=== PATIENT | female | born 1950 | race Caucasian/White ===

== ENCOUNTER 2016-07-30 08:53 | Inpatient (IN) | payer OTHER, MEDICARE ==
[~2016-07-30] VITALS: Ht 167.6 cm; Wt 67.1 kg
--- NOTE | 2016-07-30 08:59 | ED DYSPNEA/ASTHMA COMPLAINT ---
History of Present Illness General Chief Complaint: Dyspnea (COPD, CHF, Other) Stated Complaint: BIBA SOB Source: patient, EMS Exam Limitations: clinical condition Vital Signs & Intake/Output Vital Signs & Intake/Output Vital Signs Date Time Temp Pulse Resp B/P B/P Pulse O2 O2 Flow FiO2 Mean Ox Delivery Rate 07/31 2147 97.7 81 19 110/60 93 07/30 1649 96 Nasal 3.0L Cannula 07/30 1600 Nasal 3.0L Cannula 07/30 1449 97.9 91 20 132/74 92 Nasal 3.0L Cannula 07/30 1412 Nasal 3.0L Cannula 07/30 1412 96 Nasal 3.0L Cannula 07/30 1343 92 Nasal 3.0L Cannula 07/30 1256 97.9 91 20 132/74 92 Nasal 3.0L Cannula 07/30 1232 98.3 107 16 125/60 94 Nasal 3.0L Cannula 07/30 1108 98.7 87 16 109/55 96 Nasal 3.0L Cannula 07/30 1025 95 Nasal 3.0L Cannula 07/30 0920 97 Nasal 3.0L Cannula 07/30 0906 96.5 105 28 143/67 94 Room Air Allergies Coded Allergies: No Known Allergies (07/30/16) Reconcile Medications Albuterol Sulfate (Proair Hfa) 90 MCG HFA.AER.AD 90 MCG INH 4 TIMES/DAY COPD (Reported) Alprazolam 0.25 MG TABLET 0.25 MG PO TID ANXIETY (Reported) Budesonide/Formoterol Fumarate (Symbicort 160-4.5 Mcg Inhaler) 160 MCG-4.5 MCG/ ACTUATION HFA.AER.AD 160 MCG IH BID COD (Reported) Levothyroxine Sodium 137 MCG TABLET 137 MCG PO DAILY THYROID HEALTH (Reported ) Pantoprazole Sodium (Protonix) 40 MG GRANPKT.DR 40 MG PO DAILY DIGESTIVE HEALTH (Reported) Tiotropium [place] (Spiriva Respimat) 2.5 MCG/ACTUATION MIST.INHAL 2.5 MCG IH DAILY COPD (Reported) Triage Nurses Notes Reviewed? yes Onset: Abrupt Duration: day(s): (3) Timing: multiple episodes today Severity: moderate, severe Activities at Onset: rest, HOT WEATHER HPI: This is a very level a 65-year-old female with history of COPD on chronic oxygen 3 L during the day and night who presents via EMS from home for chief complaint of respiratory distress. Patient reports cough, difficulty breathing and some clear phlegm production for the past 2 days. Positive chest pain with deep breathing. Denies any fever or chills. EMS found her purse lip breathing, respiratory distress. They gave her a sublingual nitroglycerin and put her on CPAP. They report that her symptoms of slight movement improved. No known history of cardiac disease although she did have an outpatient echo yesterday that was ordered by a rope maker at [facility]. She is a former smoker. She also has a history of throat cancer and is status post PEG tube which she uses for both feeds and meds. She is completely nothing by mouth. Patient reports that she went to yesterday to have her outpatient echo and was exposed to the very hot weather all day. She states that generally she doesn't do very well and hot weather. Past History Travel History Traveled to [place] past 21 day No Medical History Any Pertinent Medical History? see below for history Respiratory: COPD Endocrine: hypothyroidism Cancer(s): THROAT Surgical History Surgical History: CARPAL TUNNEL, BROKEN JAW, B/L ROTATOR CUFF Family History Hx Contributory? No Review of Systems Review of Systems Constitutional: Denies: chills. EENTM: Reports: no symptoms. Respiratory: Reports: cough, short of breath, sputum production. Cardiovascular: Reports: chest pain. GI: Reports: no symptoms. Genitourinary: Reports: no symptoms. Musculoskeletal: Reports: no symptoms. Skin: Reports: no symptoms. Neurological/Psychological: Reports: anxiety. Hematologic/Endocrine: Denies: bruising, bleeding. Immunologic/Allergic: Reports: no symptoms. All Other Systems: Reviewed and Negative Physical Exam Physical Exam General Appearance: alert, awake, anxious, mild distress, moderate distress, thin Head: atraumatic, normal appearance Ears, Nose, Throat: normal pharynx, hearing grossly normal Neck: normal inspection, supple, full range of motion Respiratory: decreased breath sounds, accessory muscle use, rhonchi, wheezing Cardiovascular: tachycardia Peripheral Pulses: 1+ radial (R), 1+ radial (L) Gastrointestinal: normal bowel sounds, soft, no organomegaly Extremities: normal inspection, normal range of motion, no edema Neurologic/Psych: no motor/sensory deficits, awake, alert, oriented x 3 Skin: intact, normal color, warm/dry Core Measures ACS in differential dx? Yes Severe Sepsis Present: No Septic Shock Present: No Progress Differential Diagnosis: AMI, bronchitis, CHF, COPD, pulmonary embolism, pneumonia, unstable angina Plan of Care: Orders Procedure Date/time Status CBC WITHOUT DIFFERENTIAL 07/31 0600 Active BASIC ELECTROLYTES PLUS BUN&CR 07/31 0600 Active Tube Feeding 07/30 D Active RT: Reevaluation 07/30 1411 Active RT: Evaluation 07/30 1411 Active Drains/Tubes 07/30 1342 Active Vital Signs 07/30 1255 Active Teach/Educate 07/30 1255 Active Pain Treatment and Response 07/30 1255 Active Nutritional Intake, Monitor 07/30 1255 Active Isolation 07/30 1255 Active Intake & Output 07/30 1255 Active Patient Care Conference 07/30 1255 Active Activity/Ambulation 07/30 1255 Active TRC EVALUATION (GEN) 07/30 1204 Complete CULTURE,URINE 07/30 1204 Active STREP PNEUMO URINARY ANTIGEN 07/30 1204 Active LEGIONELLA URINARY ANTIGEN 07/30 1204 Active LOWER RESPIRATORY CULTURE 07/30 1204 Active BLOOD CULTURE 07/30 1204 Active NUTRITIONAL CONSULT 07/30 1204 Active LACTIC ACID 07/30 1159 Complete Pathway - chart 07/30 1108 Active Pathway - chart 07/30 1107 Active House Staff 07/30 1107 Active Patient Data 07/30 1107 Active Code Status 07/30 1107 Active Patient Data 07/30 1104 Active Admit to inpatient 07/30 1059 Active Code Status 07/30 1059 Complete ED Holding Orders 07/30 1048 Active Vital Signs 07/30 1048 Active RT ED ORDERS 07/30 1012 Complete OXYGEN SETUP (GEN) 07/30 1010 Complete Add-on Test (ER Only) 07/30 0926 Active Intake & Output 07/30 0907 Active LACTIC ACID 07/30 0859 Complete ARTERIAL BLOOD GAS (GEN) 07/30 0858 Complete RT ED ORDERS 07/30 0857 Complete TROPONIN LEVEL 07/30 0857 Complete PARTIAL THROMBOPLASTIN TIME 07/30 0857 Complete PROTHROMBIN TIME 07/30 0857 Complete D-DIMER 07/30 0857 Complete COMPREHENSIVE METABOLIC PANEL 07/30 0857 Complete CBC WITHOUT DIFFERENTIAL 07/30 0857 Complete B-TYPE NATRIURETIC PEP (BNP) 07/30 0857 Complete EKG 07/30 0855 Active THERAPIST ORDERS 07/30 UNK Complete VTE Mechanical Prophylaxis 07/30 UNK Active Nursing Misc 07/30 UNK Active MISSING MEDICATION FORM 07/30 UNK Active Current Medications Sig/Kody Start time Last Medication Dose Stop Time Status Admin Azithromycin 500 MG DAILY 07/31 1000 AC (Zithromax) Sodium Chloride 250 ML (Normal Saline 0.9%) Tiotropium [place] 1 PUF DAILY 07/31 1000 AC (Spiriva) Levothyroxine Sodium 0.137 MG DAILY AC 07/31 0700 AC (Synthroid) Budesonide/ 2 PUF BID 07/30 2200 AC 07/30 Formoterol Fumarate 203 (Symbicort) Methylprednisolone 40 MG Q8 07/30 2200 AC 07/30 (Solumedrol) 203 Acetaminophen 1,000 MG Q6P PRN 07/30 2100 AC (Ofirmev) N/A 1 UNIT (No Carrier) Albuterol Sulfate 3 ML EVERY 4 HRS/AWAKE 07/30 1600 AC 07/30 (Proventil) 195 Alprazolam 0.25 MG TID 07/30 1600 AC 07/30 (Xanax) 08/06 155 203 Albuterol Sulfate 2 PUF 4 TIMES/DAY PRN 07/30 1345 AC (Ventolin) Ceftriaxone Sodium 1,000 MG ONCE ONE 07/30 1215 CAN (Rocephin) 07/30 1216 Sodium Chloride 1,000 ML Q20H 07/30 1200 AC 07/30 (Normal Saline 0.9%) 07/31 0759 1303 Acetaminophen 325 MG Q6 PRN 07/30 1115 AC (Tylenol) Oxycodone HCl 5 MG Q6 PRN 07/30 1115 AC (Roxicodone) Oxycodone/ 2 TAB Q6 PRN 07/30 1115 AC Acetaminophen (Percocet) Enoxaparin Sodium 40 MG DAILY 07/30 1107 AC 07/30 (Lovenox) 1426 Laboratory Tests 07/30/16 1204: Sodium Cancelled, Potassium Cancelled, Chloride Cancelled, Carbon Dioxide Cancelled, Anion Gap Cancelled, BUN Cancelled, Creatinine Cancelled, BUN/ Creatinine Ratio Cancelled, CBC w Diff Cancelled, WBC Cancelled, RBC Cancelled, Hgb Cancelled, Hct Cancelled, MCV Cancelled, MCH Cancelled, RDW Cancelled, Plt Count Cancelled, MPV Cancelled, PUBS MCHC Cancelled 07/30/16 1135: Lactic Acid 1.0 07/30/16 1010: Lactic Acid 0.8, CBC w Diff NO MAN DIFF REQ, RBC 3.83 L, MCV 95.9, MCH 32.3 H, RDW 12.4, MPV 10.3, Gran % 75.5 H, Lymphocytes % 13.3 L, Monocytes % 9.4 H, Eosinophils % 1.6, Basophils % 0.2, Absolute Granulocytes 4.9, Absolute Lymphocytes 0.9 L, Absolute Monocytes 0.6, Absolute Eosinophils 0.1, Absolute Basophils 0, PUBS MCHC 33.7 07/30/16 1002: Anion Gap 7, Estimated GFR > 60, BUN/Creatinine Ratio 43.3 H, Glucose 112 H, Calcium 9.2, Total Bilirubin 0.4, AST 21, ALT 31, Alkaline Phosphatase 81, Troponin I < 0.01, [id number] Pept 402 H, Total Protein 6.5, Albumin 3.8 , Globulin 2.7, Albumin/Globulin Ratio 1.4, PT 11.4, INR 1.09, APTT 40 H, D- Dimer High Sensitivty < 200 07/30/16 0940: pH 7.40, pCO2 48 H, pO2 91, HCO3 29 H, ABG O2 Sat (Measured) 96.0, Carboxyhemoglobin 0.6 L, O2 Concentration % 3L, O2 Delivery Method NC, Phlebotomy Draw Site LEFT RADIAL Microbiology 07/30 2044 LOWER RESP: Respiratory Culture - RECD 07/30 2044 LOWER RESP: Gram Stain - RECD 07/30 134 URINE ROUT: Legionella Antigen - RES 07/30 134 URINE ROUT: Streptococcus pneumoniae Antigen (M - RES 07/30 134 URINE ROUT: Urine Culture - RES 07/30 1223 BLOOD: Blood Culture - RECD 07/30 1135 BLOOD: Blood Culture - RECD 07/30 1025 LOWER RESP: Respiratory Culture - CAN Cancelled: NUMBER OF SQUAMOUS CELLS INDICATES POOR QUALITY SPECIMEN 07/30 102 LOWER RESP: Gram Stain - CAN Cancelled: NUMBER OF SQUAMOUS CELLS INDICATES POOR QUALITY SPECIMEN Diagnostic Imaging: Viewed by Me: Radiology Read. Discussed w/RAD: Radiology Read. CXR Impression: PATIENT: CLOTILDE WRAY PRESENT AGE: 65 PATIENT ACCOUNT NO: [id number] : 50 LOCATION: ER ORDERING PHYSICIAN: NATALY CUETO MD SERVICE DATE: 07/30/16 EXAM TYPE: RAD - XRY -PORTABLE CHEST XRAY EXAMINATION: XR PORTABLE CHEST CLINICAL INFORMATION: Respiratory distress COMPARISON: None TECHNIQUE: Portable frontal view of the chest was obtained. FINDINGS: Cardiac leads overlie the chest. The lungs are well expanded. There is no focal consolidation, edema, or effusion. No pneumothorax. The cardiomediastinal silhouette is within normal limits. Aortic calcifications. No acute osseous abnormality. Symmetric widening of the acromioclavicular joints may be postsurgical. IMPRESSION: Clear lungs. DICTATED BY: SALINAS CASSIDY MD DATE/TIME DICTATED:07/30/16923 INSTRUCTOR PRODUCT INSPECTION: [employer] DATE/TIME TRANSCRIBED:07/30/16923 CONFIDENTIAL, DO NOT COPY WITHOUT APPROPRIATE AUTHORIZATION. <Electronically signed in Other Vendor System> SIGNED BY: ANGE PORTILLO,SALINAS 07/30/1634 Initial ED EKG: NSR Departure Departure Time of Disposition: 1114 Disposition: STILL A PATIENT Condition: Stable Clinical Impression Primary Impression: COPD with exacerbation Departure Forms: Customer Survey General Discharge Information Admission Note Spoke With: MALINDA DUKE MD Documentation of Exam: Documentation of any treatments & extenuating circumstances including Concerns Regarding Discharge (functional status, medication knowledge or non-compliance, living conditions, etc.) that warrant an admission rather than observation: [TRC /NEBS, IV STEROIDS, F/U BLOOD AND SPUTUM CULTURES, PULMONARY CONSULTATION, OBTAIN ECHOCARDIOGRAM REPORT FROM [facility]] Critical Care Note Critical Care Note Critical Care Time: 30-74 min
--- NOTE | 2016-07-30 09:05 | NUR ---
BIBA FROM HOME WITH WORSENING SOB, COUGH X 2 DAYS, C-PAP IN USE ON ARRIVAL. PMH: COPD, THROAT CANCER. C-PAP REMOVED, 02 SAT 94%, RESP TX GIVEN. PT HAS FEEDING TUBE IN PLACE.
--- NOTE | 2016-07-30 09:07 | NUR ---
PLACED ON O2 AT 3L NASAL CANNULA, PER DR. CUETO.
--- NOTE | 2016-07-30 09:34 | RADIOLOGY REPORT ---
EXAMINATION: XR PORTABLE CHEST CLINICAL INFORMATION: Respiratory distress COMPARISON: None TECHNIQUE: Portable frontal view of the chest was obtained. FINDINGS: Cardiac leads overlie the chest. The lungs are well expanded. There is no focal consolidation, edema, or effusion. No pneumothorax. The cardiomediastinal silhouette is within normal limits. Aortic calcifications. No acute osseous abnormality. Symmetric widening of the acromioclavicular joints may be postsurgical. IMPRESSION: Clear lungs.
--- NOTE | 2016-07-30 09:46 | NUR ---
MEDICATED FOR HEADACHE. (SEE EMAR)
--- NOTE | 2016-07-30 09:48 | NUR ---
LAB CALLED TO REQUEST TO DRAW PT
--- NOTE | 2016-07-30 10:12 | NUR ---
LABS DRAWN BY Misty DEAL (SERGIO). ( 2 BLUE, 1 GOLD, 1 LAVENDER, 1 DALLAS)
[2016-07-30 10:27] LABS: ABSOLUTE BASOPHIL COUNT 0 /CUMM (0.0-0.2); ABSOLUTE EOSINOPHIL COUNT 0.1 /CUMM (0.0-0.7); ABSOLUTE GRANULOCYTE CT 4.9 /CUMM (1.4-6.5); ABSOLUTE LYMPH COUNT 0.9 /CUMM (1.2-3.4); ABSOLUTE MONOCYTE COUNT 0.6 /CUMM (0.10-0.60); BASOPHIL % 0.2 % (0.0-2.0); EOSINOPHIL % 1.6 % (0-5); GRANULOCYTE % 75.5 % (42.2-75.2); HEMATOCRIT 36.8 % (37-47); MEAN CORPUSCULAR HGB 32.3 PG (27.0-31.0); MEAN CORPUSCULAR HGB CONC 33.7 G/DL (33.0-37.0); MEAN CORPUSCULAR VOLUME 95.9 FL (81.0-99.0); MEAN PLATELET VOLUME 10.3 FL (7.4-10.4); PLATELET COUNT 138 /CUMM (130-400); RBC DISTRIBUTION WIDTH 12.4 % (11.5-14.5); RED BLOOD CELL CT 3.83 /CUMM (4.20-5.40); WHITE BLOOD CELL COUNT 6.5 /CUMM (4.8-10.8)
--- NOTE | 2016-07-30 10:38 | NUR ---
SPUTUM SPECIMAN SENT.
[2016-07-30 10:48] LABS: PT 11.4 SEC (9.4-12.5); PTT 40 SEC (25-37)
[2016-07-30] MEDS ORDERED: ALPRAZOLAM0.25 M1 PO (10:48)
[2016-07-30] MEDS ORDERED: LEVOTHYROXINE137 MCG PO (10:50)
[2016-07-30] MEDS ORDERED: SYMBICORT 16010.2 GM IH (10:52)
[2016-07-30] MEDS ORDERED: SPIRIVA RESPIMAT4 GM IH (10:52)
[2016-07-30] MEDS ORDERED: PROTONIX40 M4 PO (10:54)
[2016-07-30] MEDS ORDERED: PROAIR HFA8.5 GM INH (10:54)
--- NOTE | 2016-07-30 11:01 | NUR ---
REPEAT RESP TX GIVEN. RESPIRATIONS LESS LABORED.
--- NOTE | 2016-07-30 11:36 | NUR ---
BED ASSIGNMENT [phone]
--- NOTE | 2016-07-30 11:46 | NUR ---
REPORT TO FLOOR (FERNY TRISTAN)
--- NOTE | 2016-07-30 12:00 | History & Physical ---
NATHALIE BELTRAN 07/30/16 1132: General Information and HPI MD Statement: I have seen and personally examined CLOTILDE WRAY and documented this H&P. The patient is a 65 year old F who presented with a patient stated chief complaint of [ shortness of breath]. Source of Information: patient Exam Limitations: no limitations History of Present Illness: Patient is a 65-year-old female with past medical history of throat cancer( status post chemotherapy and radiation, last chemo 03/22/2013), PEG tube (since January 2013 ), hypothyroidism, COPD(2-3 L of home oxygen, no BiPAP) who presented to the ED with a chief complaint of worsening shortness of breath and fatigue for the past 1 week. Patient reports that she started having worsening shortness of breath and productive cough from last Friday(07/28/2016). A week prior, she felt really sick and congested and started using her inhalers more than usual. The shortness of breath worsened over the past 1 week and for the last 2 days she hasn't been able to walk because of dyspnea. She saw her public speaker on and was prescribed steroids and by mouth antibiotics for 5 days. During that visit she was found to be wheezing and hence the steroids were prescribed. She never really got better after that and started worsening. She denies any fevers, chills, chest pain, palpitations, nausea, vomiting, abdominal pain, headaches, urinary or bowel symptoms. Has been having productive cough with thick white sputum. Her oxygen requirement has gone up to 3+ liters at home. She received her pneumonia conjugate vaccine and flu shot this year. Denies any sick contacts, recent travel. Denies any history of heart disease orthopnea, lower extremity swelling. However she had an echocardiogram done yesterday at [place] which was recommended by her public speaker to rule out any cardiac cause of dyspnea. At baseline, patient lives with her mother who is 85 years old. She is completely functional at baseline and takes care of the PEG tube by herself. Her public speaker is Lisa Richardson(LINECASTING MACHINE KEYBOARD OPERATOR at [place]) annual oncologist is Dr. Busch( [facility] In the ED vitals :temperature 96.5, pulse 105, respiration 18, blood pressure 143/67, saturating 94% on 3L Labs showed normal white count, H&H 12.4 with 36.8, sodium 138, potassium 4.3, normal lactic acid level, troponin 0.01, proBNP 402, d-dimer less than 200. ABG 7.40/48/91/29 EKG: Normal sinus rhythm, 88 beats per minute, no ST-T wave changes, QTC 441 Patient received nebulizers, 125 Solu-Medrol, IV Tylenol and 1 L fluid bolus in the ED Allergies/Medications Allergies: Coded Allergies: No Known Allergies (07/30/16) Home Med list Albuterol Sulfate (Proair Hfa) 90 MCG HFA.AER.AD 90 MCG INH 4 TIMES/DAY COPD (Reported) Alprazolam 0.25 MG TABLET 0.25 MG PO TID ANXIETY (Reported) Budesonide/Formoterol Fumarate (Symbicort 160-4.5 Mcg Inhaler) 160 MCG-4.5 MCG/ ACTUATION HFA.AER.AD 160 MCG IH BID COD (Reported) Levothyroxine Sodium 137 MCG TABLET 137 MCG PO DAILY THYROID HEALTH (Reported ) Pantoprazole Sodium (Protonix) 40 MG GRANPKT.DR 40 MG PO DAILY DIGESTIVE HEALTH (Reported) Tiotropium [place] (Spiriva Respimat) 2.5 MCG/ACTUATION MIST.INHAL 2.5 MCG IH DAILY COPD (Reported) Past History Travel History Traveled to [place] past 21 day No Medical History Respiratory: COPD Endocrine: hypothyroidism Cancer(s): THROAT Surgical History Surgical History: CARPAL TUNNEL, BROKEN JAW, B/L ROTATOR CUFF Past Family/Social History Psychosocial History ETOH Use: denies use Review of Systems Review of Systems Constitutional: Reports: malaise, weakness. EENTM: Reports: no symptoms. Cardiovascular: Reports: no symptoms. Respiratory: Reports: cough, short of breath, sputum production, wheezing. GI: Reports: no symptoms. Genitourinary: Reports: no symptoms. Musculoskeletal: Reports: muscle pain. Skin: Reports: no symptoms. Neurological/Psychological: Reports: no symptoms. Hematologic/Endocrine: Reports: no symptoms. Exam & Diagnostic Data Last 24 Hrs of Vital Signs/I&O Vital Signs Date Time Temp Pulse Resp B/P B/P Pulse O2 O2 Flow FiO2 Mean Ox Delivery Rate 07/30 1108 98.7 87 16 109/55 96 Nasal 3.0L Cannula 07/30 1025 95 Nasal 3.0L Cannula 07/30 0920 97 Nasal 3.0L Cannula 07/30 0906 96.5 105 28 143/67 94 Room Air Intake & Output 07/30 1600 07/30 0800 07/30 0000 Intake Total 200 Output Total Balance 200 Intake, IV 200 Patient 67.132 kg Weight Weight Reported by Patient Measurement Method Physical Exam General Appearance Alert, Oriented X3, Cooperative, Moderate Distress Skin No Rashes, No Breakdown, PEG TUBE IN ABDOMEN,CLEAN AND INTACT Skin Temp/Moisture Exam: Warm/Dry Sepsis Skin Exam (color): Normal for Ethnicity HEENT Atraumatic, PERRLA, EOMI, HOARSENESS OF VOICE Neck Supple Lymphatic Cervical nl Cardiovascular Regular Rate, Normal S1, Normal S2, No Murmurs Lungs DECREASED AIT ENTRY BILATERALLY, WHEEZING Abdomen Normal Bowel Sounds, Soft, PEG TUBE Neurological Normal Gait, Normal Speech, Normal Tone, Sensation Intact, Cranial Nerves 3-12 NL, Reflexes 2+ Extremities No Clubbing, No Cyanosis, No Edema, Normal Pulses Assessment/Plan Assessment: Patient is a 65-year-old female with past medical history of throat cancer( status post chemotherapy and radiation, last chemo 03/22/2013), PEG tube (since January 2013 ), hypothyroidism, COPD(2-3 L of home oxygen, no BiPAP) who presented to the ED with a chief complaint of worsening shortness of breath and fatigue for the past 1 week. In the ED vitals :temperature 96.5, pulse 105, respiration 18, blood pressure 143/67, saturating 94% on 3L Labs showed normal white count, H&H 12.4 with 36.8, sodium 138, potassium 4.3, normal lactic acid level, troponin 0.01, proBNP 402, d-dimer less than 200. ABG 7.40/48/91/29 EKG: Normal sinus rhythm, 88 beats per minute, no ST-T wave changes, QTC 441 Patient received nebulizers, 125 Solu-Medrol, IV Tylenol and 1 L fluid bolus in the ED Plan: #1 Acute hypoxic hypercarbic respiratory failure likely secondary to COPD exacerbation versus acute bronchitis. Patient does not appear to be in heart failure at this time, euvolemic on exam. Low d-dimer. -Admit to [facility] -Vitals per protocol -Oxygenation to keep saturations above 92% -TRC nebs [id number] gentle hydration with IV fluidsx 1BAG -Received 125 Solu-Medrol in the ED. Continue Solu-Medrol 40 every 8 hours -Continue BiPAP as needed -Continue home meds and Symbicort -IV ceftriaxone and azithromycin 1 dose.Continue Azithro for antinflamatory effects -Obtain blood, sputum, urine cultures -Urine strep and Legionella -Patient does not appear to be in florid heart failure at this time. Unimpressive proBNP. -Try to obtain Echocardiogram record from [place](done yesterday) -Pulmonology consult appreciated #2 History of throat cancer/ Status post radiation and chemotherapy,last chemo 03/22/2013 -Status post PEG tube,since January 2013 -Patient has hoarseness of voice and dysphagia -Follows up with Dr. Busch at [facility] #3 Hypothyroidism -Comtinue home medication 137 mcg #DVT prophylaxis subcutaneous Lovenox #Full code #Mild pain pathway #PEG tube feeds As Ranked By This Provider Problem List: 1. COPD with exacerbation Core Measures/Miscellaneous Acute Coronary Syndrome ACS Diagnosis: No Cerebrovascular Accident CVA/TIA Diagnosis: No Congestive Heart Failure CHF Diagnosis: No VTE (View Protocol) VTE Risk Factors: Age > 40, Cancer/chemo/oth therapy No Mech VTE prophylaxis d/t: No contraindications No VTE Pharm Prophylaxis d/t: No contraindications VTE Diagnosis: No VTE Type: NONE VTE Confirmed by (Test): NONE Sepsis (View Protocol) Severe Sepsis Present: No Septic Shock Septic Shock Present: No Miscellaneous Documentation Attending Case Discussed With: MENDEL AGUILLON MD Primary Care Physician: LYNDON URIAS MD, V. Patient sees these Specialists [facility] Level of Patient Care: General Medicine MENDEL AGUILLON MD 07/30/16 1313: Attending MD Review Statement Attending Statement Attending MD Statement: examined this patient, discuss w/resident/PA/DECISION ANALYST, agreed w/resident/PA/DECISION ANALYST, reviewed EMR data (avail), discussed with nursing, reviewed images, amended to note Attending Assessment/Plan: 65 y/o F with pmh sig for throat cancer(status post chemotherapy and radiation, last chemo 03/22/2013), PEG tube (since January 2013 ), hypothyroidism,ch resp failure, COPD(2-3 L of home oxygen, no BiPAP) presented with worsening dyspnea as well as shortness of breath and wheezing. Patient has not been feeling well for over 2 weeks. She went to a public speaker and was prescribed antibiotics as well as steroids. She took that and then felt that her for couple of days but then starting last week she started to feel more short of breath. From the ostia 4 days she has been having very difficulty in breathing and wheezing a lot. She she could not take it anymore this morning and called ambulance. In the emergency room she was slightly tachycardic with sinus tachycardia she did require oxygen. Her ABG showed slight hypercarbia but it was compensated. Patient does complain of cough productive of clear sputum, denies any sore throat, ear pain. No fevers or chills. Did complain of some headache. Vital Signs Date Time Temp Pulse Resp B/P B/P Pulse O2 O2 Flow FiO2 Mean Ox Delivery Rate 07/30 1256 97.9 91 20 132/74 92 Nasal 3.0L Cannula 07/30 1232 98.3 107 16 125/60 94 Nasal 3.0L Cannula 07/30 1108 98.7 87 16 109/55 96 Nasal 3.0L Cannula 07/30 1025 95 Nasal 3.0L Cannula 07/30 0920 97 Nasal 3.0L Cannula 07/30 0906 96.5 105 28 143/67 94 Room Air on exam; aox3 nad. cv: s1,s2, rrr resp; scattered wheeze b/l abd; soft, nt, bs+, + PEG in place with no discharge. Mild erythema surrounding PEG. ext; no edema. Laboratory Tests 07/30 07/30 07/30 1204 1010 1002 Chemistry Sodium (137 - 145 mmol/L) Cancelled 138 Potassium (3.5 - 5.1 mmol/L) Cancelled 4.3 Chloride (98 - 107 mmol/L) Cancelled 98 Carbon Dioxide (22 - 30 mmol/L) Cancelled 33 H Anion Gap (5 - 16) Cancelled 7 BUN (7 - 17 mg/dL) Cancelled 26 H Creatinine (0.5 - 1.0 mg/dL) Cancelled 0.6 Estimated GFR (>60 ml/min) > 60 BUN/Creatinine Ratio (7 - 25 %) Cancelled 43.3 H Glucose (65 - 99 mg/dL) 112 H Lactic Acid (0.7 - 2.1 mmol/L) 0.8 Calcium (8.4 - 10.2 mg/dL) 9.2 Total Bilirubin (0.2 - 1.3 mg/dL) 0.4 AST (14 - 36 U/L) 21 ALT (9 - 52 U/L) 31 Alkaline Phosphatase (<127 U/L) 81 Troponin I (< 0.11 ng/ml) < 0.01 Pbn-N-Rqrypjycbop Pept (<125 pg/mL) 402 H Total Protein (6.3 - 8.2 g/dL) 6.5 Albumin (3.5 - 5.0 g/dL) 3.8 Globulin (1.9 - 4.2 gm/dL) 2.7 Albumin/Globulin Ratio (1.1 - 2.2 %) 1.4 Coagulation PT (9.4 - 12.5 SEC) 11.4 INR (0.90 - 1.19) 1.09 APTT (25 - 37 SEC) 40 H D-Dimer High Sensitivty (0 - 243 ng/ml) < 200 Hematology CBC w Diff Cancelled NO MAN DIFF REQ WBC (4.8 - 10.8 /CUMM) Cancelled 6.5 RBC (4.20 - 5.40 /CUMM) Cancelled 3.83 L Hgb (12.0 - 16.0 G/DL) Cancelled 12.4 Hct (37 - 47 %) Cancelled 36.8 L MCV (81.0 - 99.0 FL) Cancelled 95.9 MCH (27.0 - 31.0 PG) Cancelled 32.3 H RDW (11.5 - 14.5 %) Cancelled 12.4 Plt Count (130 - 400 /CUMM) Cancelled 138 MPV (7.4 - 10.4 FL) Cancelled 10.3 Gran % (42.2 - 75.2 %) 75.5 H Lymphocytes % (20.5 - 51.1 %) 13.3 L Monocytes % (1.7 - 9.3 %) 9.4 H Eosinophils % (0 - 5 %) 1.6 Basophils % (0.0 - 2.0 %) 0.2 Absolute Granulocytes (1.4 - 6.5 /CUMM) 4.9 Absolute Lymphocytes (1.2 - 3.4 /CUMM) 0.9 L Absolute Monocytes (0.10 - 0.60 /CUMM) 0.6 Absolute Eosinophils (0.0 - 0.7 /CUMM) 0.1 Absolute Basophils (0.0 - 0.2 /CUMM) 0 PUBS MCHC (33.0 - 37.0 G/DL) Cancelled 33.7 07/30 0940 Blood Gas pH (7.35 - 7.45 PH) 7.40 pCO2 (35 - 45 TORR) 48 H pO2 (80 - 100 TORR) 91 HCO3 (21 - 28 MEQ/L) 29 H ABG O2 Sat (Measured) (>96.0 %) 96.0 Carboxyhemoglobin (1.5 - 5.0 %) 0.6 L O2 Concentration % 3L O2 Delivery Method NC Miscellaneous Phlebotomy Draw Site LEFT RADIAL CXR: Clear EKG>>> Sinus rythm. A/P; 65 y/o F with pmh sig for throat cancer(status post chemotherapy and radiation, last chemo 03/22/2013), PEG tube (since January 2013 ), hypothyroidism,ch resp failure, COPD(2-3 L of home oxygen, no BiPAP) is admitted with acute on chronic respiratory failure as evidenced by tachypnea, tachycardia and hypoxia. Patient has acute COPD exacerbation and acute bronchitis. Patient admitted to medicine. Patient will be started on IV steroids, TRC nebs. We will obtain sputum culture. Patient will be covered with IV azithromycin for acute bronchitis. No evidence of pneumonia, no infiltrate on the chest x-ray, patient afebrile with white count normal. Agree with pulmonology consult. Please continue Symbicort and Spiriva. DVT prophylaxis: Lovenox. Patient is a full code.
--- NOTE | 2016-07-30 12:25 | NUR ---
AWAITING TRANSPORT, FIRST SET OF BLOOD CULTURES.
--- NOTE | 2016-07-30 12:26 | NUR ---
1ST LUKAS OF CULTIRES DRAWN AND SENT BY THIS MST.
--- NOTE | 2016-07-30 12:50 | NUR ---
PATIENT ARRIVED TO FLOOR VIA STRETCHER WITH DISTRIBUTION; A/OX3; 3L NC (BASELINE) 92%; VITALS STABLE (SEE INTERVENTION); SKIN INTACT; PEG TUBE TO ABDOMEN WITH REDNESS NOTED UNDER DISC; DRY DRESSING PLACED TO PEG SITE; ALPS IN PLACE; IVF PER ORDER; PATIENT ORIENTED TO ROOM AND CALL STANLEY; NEEDS WITHIN REACH; DR PACHECO AT BEDSIDE TO ASSESS PATIENT; SAFETY MAINTAINED;
[2016-07-30 12:56] VITALS: BP 132/74
--- NOTE | 2016-07-30 14:04 | Cons- Pulmonary ---
EMMA PORTILLO,SANJEEV 07/30/16 1335: General Information and HPI Consulting Request Date of Consult: 07/30/16 Requested By: Dr. Chery Reason for Consult: COPD exacerbation Source of Information: patient, old records Exam Limitations: no limitations History of Present Illness: 65 YO woman with pmh of COPD (3L oxygen at baseline); with 40 year h/o smoking 2PPD, throat cancer (s/p chemotherapy/radiation, last chemotherapy 03/2013) PEG tube, hypothyroidism, who presented to the ER this morning complaining of shortness of breath for the past several weeks with cough and whitish sputum production. She feels that her symptoms have worsened over the past few days. She saw her physical therapy aides teacher, Dr. Radha Arrington who recommended that she try a prednisone taper and antiboitic in June. As symptoms didnt improve she suggested a ECHO which was done yesterday at [place]. Denies fevers, chills, othopnea, pnd, sick contacts, chest pain, palpitations. Reports no history of cardiac disease. She is reports being fairly active, drives her car and lives with her mother. Allergies/Medications Allergies: Coded Allergies: No Known Allergies (07/30/16) Home Med List: Albuterol Sulfate (Proair Hfa) 90 MCG HFA.AER.AD 90 MCG INH 4 TIMES/DAY COPD (Reported) Alprazolam 0.25 MG TABLET 0.25 MG PO TID ANXIETY (Reported) Budesonide/Formoterol Fumarate (Symbicort 160-4.5 Mcg Inhaler) 160 MCG-4.5 MCG/ ACTUATION HFA.AER.AD 160 MCG IH BID COD (Reported) Levothyroxine Sodium 137 MCG TABLET 137 MCG PO DAILY THYROID HEALTH (Reported ) Pantoprazole Sodium (Protonix) 40 MG GRANPhilomenaKTDayanaDR 40 MG PO DAILY DIGESTIVE HEALTH (Reported) Tiotropium [place] (Spiriva Respimat) 2.5 MCG/ACTUATION MIST.INHAL 2.5 MCG IH DAILY COPD (Reported) Current Medications: Current Medications Sig/Kody Start time Last Medication Dose Route Stop Time Status Admin Acetaminophen 325 MG Q6 PRN 07/30 1115 AC PO Acetaminophen 0 .STK-MED ONE 07/30 0948 DC IV Acetaminophen 1,000 MG ONCE ONE 07/30 0930 DC 07/30 N/A 1 UNIT IV 06/13 0944 0946 Albuterol Sulfate 2 PUF 4 TIMES/DAY 07/30 1400 DC INH Albuterol Sulfate 2 PUF 4 TIMES/DAY PRN 07/30 1345 UNVr INH Albuterol Sulfate 3 ML ONCE ONE 07/30 1015 DC 07/30 INH 07/30 1016 1020 Albuterol Sulfate 3 ML ONCE ONE 07/30 0900 DC 07/30 INH 07/30 0901 0902 Alprazolam 0.25 MG TID 07/30 1600 AC PO 08/06 1559 Azithromycin 500 MG ONCE ONE 07/30 1215 DC Sodium Chloride 250 ML IV 07/30 1314 Budesonide/ 2 PUF BID 07/30 2200 AC Formoterol Fumarate INH Ceftriaxone Sodium 1,000 MG ONCE ONE 07/30 1215 CAN IV 07/30 1216 Enoxaparin Sodium 40 MG DAILY 07/30 1107 AC SC Ipratropium [place] 2.5 ML ONCE ONE 07/30 1015 DC 07/30 INH 07/30 1016 1020 Ipratropium [place] 2.5 ML ONCE ONE 07/30 0900 DC 07/30 INH 07/30 0901 0902 Levothyroxine Sodium 0.137 MG DAILY AC 07/31 0700 AC PO Methylprednisolone 40 MG Q8 07/30 1400 AC IV Methylprednisolone 0 .STK-MED ONE 07/30 0916 DC .ROUTE Methylprednisolone 125 MG ONCE ONE 07/30 0900 DC 07/30 IV 07/30 0901 0918 Oxycodone HCl 5 MG Q6 PRN 07/30 1115 AC PO Oxycodone/ 2 TAB Q6 PRN 07/30 1115 AC Acetaminophen PO Sodium Chloride 1,000 ML Q20H 07/30 1200 AC 07/30 IV 07/31 0759 1303 Sodium Chloride 1,000 ML BOLUS ONE 07/30 1100 DC 07/30 IV 07/30 1159 1131 Tiotropium [place] 1 PUF DAILY 07/31 1000 AC INH Review of Systems Review of Systems Constitutional: Reports: malaise, weakness. Denies: chills, fever. EENTM: Reports: no symptoms. Cardiovascular: Denies: chest pain, orthopena, palpitations, peripheral edema. Respiratory: Reports: cough, short of breath, sputum production, wheezing. Denies: orthopnea. GI: Reports: no symptoms. Genitourinary: Reports: no symptoms. Musculoskeletal: Reports: no symptoms. Skin: Reports: no symptoms. Neurological/Psychological: Reports: no symptoms. Hematologic/Endocrine: Reports: no symptoms. All Other Systems: Reviewed and Negative Past History Travel History Traveled to [place] past 21 day No Medical History Respiratory: COPD Endocrine: hypothyroidism Cancer(s): THROAT Surgical History Surgical History: CARPAL TUNNEL, BROKEN JAW, B/L ROTATOR CUFF Psychosocial History ETOH Use: denies use Functional Ability ADLs Independent: dressing, eating, toileting, bathing. Ambulation: independent IADLs Independent: shopping, housework, finances, food prep, telephone, transportation , medication admin. ECHO Results (as available) Date of last Echo 07/29/16 (At [place]) Exam & Diagnostic Data Last 24 Hrs of Vital Signs/I&O Vital Signs Date Time Temp Pulse Resp B/P B/P Pulse O2 O2 Flow FiO2 Mean Ox Delivery Rate 07/30 1343 92 Nasal 3.0L Cannula 07/30 1256 97.9 91 20 132/74 92 Nasal 3.0L Cannula 07/30 1232 98.3 107 16 125/60 94 Nasal 3.0L Cannula 07/30 1108 98.7 87 16 109/55 96 Nasal 3.0L Cannula 07/30 1025 95 Nasal 3.0L Cannula 07/30 0920 97 Nasal 3.0L Cannula 07/30 0906 96.5 105 28 143/67 94 Room Air Intake & Output 07/30 1600 07/30 0800 07/30 0000 Intake Total 200 Output Total Balance 200 Intake, IV 200 Patient 148 lb Weight Weight Reported by Patient Measurement Method Physical Exam General Appearance: alert, awake, cachetic, mild distress, thin Head: atraumatic, normal appearance Eyes: Bilateral: normal appearance, PERRL, EOMI. Neck: normal inspection, supple Respiratory: decreased breath sounds, wheezing Cardiovascular: regular rate/rhythm Peripheral Pulses: 2+ radial (R), 2+ radial (L) Gastrointestinal: normal bowel sounds, soft, non-tender (peg tube in place) Extremities: no edema Neurologic/Psych: awake, alert, oriented x 3 Last 48 Hrs of Labs/Bossman: Laboratory Tests 07/30/16 1204: Sodium Cancelled, Potassium Cancelled, Chloride Cancelled, Carbon Dioxide Cancelled, Anion Gap Cancelled, BUN Cancelled, Creatinine Cancelled, BUN/ Creatinine Ratio Cancelled, CBC w Diff Cancelled, WBC Cancelled, RBC Cancelled, Hgb Cancelled, Hct Cancelled, MCV Cancelled, MCH Cancelled, RDW Cancelled, Plt Count Cancelled, MPV Cancelled, PUBS MCHC Cancelled 07/30/16 1135: Lactic Acid Pending 07/30/16 1010: Lactic Acid 0.8, CBC w Diff NO MAN DIFF REQ, RBC 3.83 L, MCV 95.9, MCH 32.3 H, RDW 12.4, MPV 10.3, Gran % 75.5 H, Lymphocytes % 13.3 L, Monocytes % 9.4 H, Eosinophils % 1.6, Basophils % 0.2, Absolute Granulocytes 4.9, Absolute Lymphocytes 0.9 L, Absolute Monocytes 0.6, Absolute Eosinophils 0.1, Absolute Basophils 0, PUBS MCHC 33.7 07/30/16 1002: Anion Gap 7, Estimated GFR > 60, BUN/Creatinine Ratio 43.3 H, Glucose 112 H, Calcium 9.2, Total Bilirubin 0.4, AST 21, ALT 31, Alkaline Phosphatase 81, Troponin I < 0.01, Pjr-U-Zhmgbpwyucr Pept 402 H, Total Protein 6.5, Albumin 3.8 , Globulin 2.7, Albumin/Globulin Ratio 1.4, PT 11.4, INR 1.09, APTT 40 H, D- Dimer High Sensitivty < 200 07/30/16 0940: pH 7.40, pCO2 48 H, pO2 91, HCO3 29 H, ABG O2 Sat (Measured) 96.0, Carboxyhemoglobin 0.6 L, O2 Concentration % 3L, O2 Delivery Method NC, Phlebotomy Draw Site LEFT RADIAL Diagnostic Data CXR Results Cardiac leads overlie the chest. The lungs are well expanded. There is no focal consolidation, edema, or effusion. No pneumothorax. The cardiomediastinal silhouette is within normal limits. Aortic calcifications. No acute osseous abnormality. Symmetric widening of the acromioclavicular joints may be postsurgical. Assessment/Plan Impression/Plan: 65 YO woman with pmh of COPD (3L oxygen at baseline); with 40 year h/o smoking 2PPD, throat cancer (s/p chemotherapy/radiation, last chemotherapy 03/2013) PEG tube, hypothyroidism, who presented to the ER this morning complaining of shortness of breath for the past several weeks with cough and whitish sputum production. In the ER she receieved high dose solumedrol with nebulizers. She feels slightly better with oxygen saturations at baseline. Imaging negative for acute infection. At this time appears to have exacerbation of COPD Recommendations: Recieved IV steroids in ER. Would continue solumedrol 40mg Q8 IV starting this evening. Received one dose of ceftriaxone and azithromycin in ER. Would continue azithromycin. Continue Spiriva, Symbicort, with TRC and nebulizers. Keep oxygen saturation greater than 92%. F/u on cultures that have been ordered. DVT ppx, lovenox. She had an echocardiogram done at [place] yesterday recommend that we get records. Problem List: 1. COPD with exacerbation Consult Acknowledgment - Thank you for your consult request. MATTHEW WINTERS MD 07/30/16 7950: Assessment/Plan Other Findings/Comments: Matthew Valdovinos M.D. have examined this patient, reviewed available EMR data, personally reviewed images, discussed with resident/PA/BREAKER LAYER, discussed management plan with housestaff and nursing staff, discussed managment plan all of healthcare providers, discussed management plan with patient and/or family, agreed with resident/PA/BREAKER LAYER. The past history and parts of the chart have been autopopulated. Impression 65 year old woman with an exacerbation of COPD secondary to acute bronchitis. Normal CXR. Plan -f/u ECHO from [place] -5 days of zithromax -cont solumedrol -trc/nebs -cont spiriva/symbicort -on 2-3L at baseline of O2 DVT prophylaxis at all times Consult Acknowledgment - Thank you for your consult request.
[2016-07-30 14:49] VITALS: BP 132/74
--- NOTE | 2016-07-30 14:58 | NUR ---
CALLED PHARMACY IN REGARDS TO THE MISSING MED AZITHROMYCIN; PER PHARMACIST AZITHROMYCIN WILL BE SENT UP DURING "CART EXCHANGE"; AWAITING ARRIVAL OF MEDICATION;
[2016-07-30 21:48] VITALS: BP 110/60
[2016-07-31 05:56] VITALS: BP 118/60
[2016-07-31 07:58] LABS: ABSOLUTE BASOPHIL COUNT 0 /CUMM (0.0-0.2); ABSOLUTE EOSINOPHIL COUNT 0 /CUMM (0.0-0.7); ABSOLUTE GRANULOCYTE CT 3.5 /CUMM (1.4-6.5); ABSOLUTE LYMPH COUNT 0.4 /CUMM (1.2-3.4); ABSOLUTE MONOCYTE COUNT 0.3 /CUMM (0.10-0.60); BASOPHIL % 0.2 % (0.0-2.0); EOSINOPHIL % 0.1 % (0-5); GRANULOCYTE % 83.8 % (42.2-75.2); HEMATOCRIT 34.9 % (37-47); MEAN CORPUSCULAR HGB 32.3 PG (27.0-31.0); MEAN CORPUSCULAR HGB CONC 33.3 G/DL (33.0-37.0); MEAN CORPUSCULAR VOLUME 96.9 FL (81.0-99.0); MEAN PLATELET VOLUME 10.6 FL (7.4-10.4); PLATELET COUNT 140 /CUMM (130-400); RBC DISTRIBUTION WIDTH 12.8 % (11.5-14.5)
[2016-07-31 09:39] LABS: WHITE BLOOD CELL COUNT 4.1 /CUMM (4.8-10.8)
--- NOTE | 2016-07-31 11:03 | PN- Housestaff ---
EDGAR PORTILLO,SEFERINO 07/31/16 1103: Subjective Follow-up For: COPD exacerbation NPO on tube feeds Subjective: I saw and examined patient today morning She still reports extensive cough with sputum production, had rough night. Her oxygen demand is at her baseline (on 3 L). She reports mild pain around the PEG tube region which has been chronic. Otherwise no significant issues. Review of Systems Constitutional: Reports: see HPI. Comments: ROS negative except above Objective Last 24 Hrs of Vital Signs/I&O Vital Signs Date Time Temp Pulse Resp B/P B/P Pulse O2 O2 Flow FiO2 Mean Ox Delivery Rate 07/31 0917 96 Nasal 3.0L Cannula 07/31 0556 97.7 79 24 118/60 97 Nasal 3.0L Cannula 07/31 0000 Nasal 3.0L Cannula 07/30 2148 97.7 81 19 110/60 93 07/30 1649 96 Nasal 3.0L Cannula 07/30 1600 Nasal 3.0L Cannula 07/30 1449 97.9 91 20 132/74 92 Nasal 3.0L Cannula 07/30 1412 Nasal 3.0L Cannula 07/30 1412 96 Nasal 3.0L Cannula 07/30 1343 92 Nasal 3.0L Cannula 07/30 1256 97.9 91 20 132/74 92 Nasal 3.0L Cannula 07/30 1232 98.3 107 16 125/60 94 Nasal 3.0L Cannula 07/30 1108 98.7 87 16 109/55 96 Nasal 3.0L Cannula Intake & Output 07/31 1600 07/31 0800 07/31 0000 Intake Total 560 420 Output Total 400 600 Balance 160 -180 Intake, IV 420 400 Intake, Oral 0 Intake, Tube 140 20 Feeding Output, Urine 400 600 Physical Exam General Appearance: Alert, Oriented X3, Cooperative Skin: No Rashes, No Breakdown, PEG tube in place HEENT: Atraumatic, PERRLA Neck: Supple Cardiovascular: Normal S1, Normal S2 Lungs: poor air entry, mild wheezing Abdomen: Normal Bowel Sounds, Soft, No Tenderness Neurological: Strength at 5/5 X4 Ext, Sensation Intact, Cranial Nerves 3-12 NL Extremities: No Clubbing, No Cyanosis Vascular: Pulses Symmetrical Current Medications: Current Medications Sig/Kody Start time Last Medication Dose Route Stop Time Status Admin Acetaminophen 1,000 MG Q6P PRN 07/30 2100 AC 07/31 N/A 1 UNIT IV 1808 Acetaminophen 325 MG Q6 PRN 07/30 1115 AC PO Albuterol Sulfate 3 ML EVERY 4 HRS/AWAKE 07/30 1600 AC 07/31 INH 1918 Albuterol Sulfate 2 PUF 4 TIMES/DAY PRN 07/30 1345 AC INH Alprazolam 0.25 MG TID 07/30 1600 AC 07/31 PO 08/06 1559 2027 Azithromycin 500 MG DAILY 07/31 1000 AC 07/31 Sodium Chloride 250 ML IV 08/03 2000 1241 Budesonide/ 2 PUF BID 07/30 2200 AC 07/31 Formoterol Fumarate INH 2017 Enoxaparin Sodium 40 MG DAILY 07/30 1107 AC 07/31 SC 0809 Guaifenesin/ 10 ML Q6P PRN 07/31 1445 AC 07/31 Dextromethorphan PO 1625 Levothyroxine Sodium 0.137 MG DAILY AC 07/31 0700 AC 07/31 PO 0810 Melatonin 3 MG ONCE ONE 07/31 0400 DC 07/31 PO 07/31 0401 0433 Methylprednisolone 40 MG Q12H 07/31 1800 AC 07/31 IV 1625 Methylprednisolone 40 MG Q8 07/30 2200 DC 07/31 IV 0600 Omeprazole 40 MG DAILY AC 07/31 1445 AC 07/31 PO 1808 Oxycodone HCl 5 MG Q6 PRN 07/30 1115 AC PO Oxycodone/ 2 TAB Q6 PRN 07/30 1115 AC Acetaminophen PO Patient Medication 1 ED .STK-MED ONE 07/31 1407 HI Teaching ED 07/31 1408 Sodium Chloride 1,000 ML Q20H 07/30 1200 DC 07/30 IV 07/31 0759 1303 Tiotropium [place] 1 PUF DAILY 07/31 1000 AC 07/31 INH 0809 Trazodone HCl 12.5 MG ONCE ONE 07/31 2100 AC PO 07/31 2101 Last 24 Hrs of Lab/Bossman Results Last 24 Hrs of Labs/Mics: Laboratory Tests 07/31/16 0630: Anion Gap 4 L, Estimated GFR > 60, BUN/Creatinine Ratio 30.0 H, CBC w Diff NO MAN DIFF REQ, RBC 3.60 L, MCV 96.9, MCH 32.3 H, RDW 12.8, MPV 10.6 H, Gran % 83.8 H, Lymphocytes % 9.1 L, Monocytes % 6.8, Eosinophils % 0.1, Basophils % 0.2, Absolute Granulocytes 3.5, Absolute Lymphocytes 0.4 L, Absolute Monocytes 0.3, Absolute Eosinophils 0, Absolute Basophils 0, PUBS MCHC 33.3 Microbiology 07/31 234 LOWER RESP: Respiratory Culture - CAN Cancelled: NUMBER OF SQUAMOUS CELLS INDICATES POOR QUALITY SPECIMEN 07/31 234 LOWER RESP: Gram Stain - CAN Cancelled: NUMBER OF SQUAMOUS CELLS INDICATES POOR QUALITY SPECIMEN Assessment/Plan Assessment: Patient is a 60-year-old female with past history significant for throat cancer (s/p chemotherapy, radiotherapy, PEG tube placement), hypothyroidism, COPD(2-3 L home oxygen) presented with progressive worsening of shortness of breath and fatigue for the past 1 week she was admitted acute hypoxic respiratory failure secondary to COPD exacerbation. In the ED vitals :temperature 96.5, pulse 105, respiration 18, blood pressure 143/67, saturating 94% on 3L Labs showed normal white count, H&H 12.4 with 36.8, sodium 138, potassium 4.3, normal lactic acid level, troponin 0.01, proBNP 402, d-dimer less than 200. ABG 7.40/48/91/29 EKG: Normal sinus rhythm, 88 beats per minute, no ST-T wave changes, QTC 441 Patient received nebulizers, 125 Solu-Medrol, IV Tylenol and 1 L fluid bolus in the ED Plan Admitted to general medicine floor Acute hypoxic hypercarbic respiratory failure likely secondary to COPD exacerbation * Started on IV Solu-Medrol 40 every 8 --> converted to 40 every 12 today * Azithromycin for anti-inflammatory properties * Cultures are negative so far * Echocardiogram from [place] was normal with ejection fraction of 55%, no wall motion abnormalities. * Started on Robitussin for productive cough * TRC/nebs * Pulmonary consult appreciated history of throat cancer, status post radiotherapy and chemotherapy * PEG tube placement since January 2013 * Nothing by mouth on tube feeds * Follows up with Dr. Busch at [facility] Hypothyroidism * Continue home medication levothyroxine 137 g anxiety Anxiety * continue home dose Xanax 0.25 mg 3 times a day * Melatonin 5 mg at bedtime for insomnia Pain management * Roxicodone 5 mg every 6 when necessary * Percocet 2 tabs every 6 when necessary * Tylenol for mild pain DVT prophylaxis * Subcutaneous Lovenox CODE STATUS * Full code Problem List: 1. COPD with exacerbation Pain Ratin Pain Location: chest region Pain Goal: Pain 4 or less Pain Plan: tylenol roxicodone dilaudid Tomorrow's Labs & Rationales: None MENDEL AGUILLON MD 07/31/16 1114: Attending MD Review Statement Attending Statement Attending MD Statement: examined this patient, discuss w/resident/PA/CERTIFIED MIDWIFE, agreed w/resident/PA/CERTIFIED MIDWIFE, reviewed EMR data (avail), discussed with nursing, discussed with case mgmt, reviewed images, amended to note Attending Assessment/Plan: Patient seen and examined, not feeling much better. She said that she was up all night coughing. She still complains of some shortness of breath. She is requiring 3 L of oxygen. Vital Signs Date Time Temp Pulse Resp B/P B/P Pulse O2 O2 Flow FiO2 Mean Ox Delivery Rate 07/31 0917 96 Nasal 3.0L Cannula 07/31 0556 97.7 79 24 118/60 97 Nasal 3.0L Cannula 07/31 0000 Nasal 3.0L Cannula 07/30 2148 97.7 81 19 110/60 93 07/30 1649 96 Nasal 3.0L Cannula 07/30 1600 Nasal 3.0L Cannula 07/30 1449 97.9 91 20 132/74 92 Nasal 3.0L Cannula 07/30 1412 Nasal 3.0L Cannula 07/30 1412 96 Nasal 3.0L Cannula 07/30 1343 92 Nasal 3.0L Cannula 07/30 1256 97.9 91 20 132/74 92 Nasal 3.0L Cannula 07/30 1232 98.3 107 16 125/60 94 Nasal 3.0L Cannula on exam; aox3, nad. cv; s1,s2, rrr resp; clear with decreased bs overall. abd; soft, nt, bs+ ext; no edema. Laboratory Tests 07/31 07/30 07/30 0630 1204 1135 Chemistry Sodium (137 - 145 mmol/L) 139 Cancelled Potassium (3.5 - 5.1 mmol/L) 4.2 Cancelled Chloride (98 - 107 mmol/L) 102 Cancelled Carbon Dioxide (22 - 30 mmol/L) 33 H Cancelled Anion Gap (5 - 16) 4 L Cancelled BUN (7 - 17 mg/dL) 18 H Cancelled Creatinine (0.5 - 1.0 mg/dL) 0.6 Cancelled Estimated GFR (>60 ml/min) > 60 BUN/Creatinine Ratio (7 - 25 %) 30.0 H Cancelled Lactic Acid (0.7 - 2.1 mmol/L) 1.0 Hematology CBC w Diff NO MAN DIFF REQ Cancelled WBC (4.8 - 10.8 /CUMM) 4.1 L Cancelled RBC (4.20 - 5.40 /CUMM) 3.60 L Cancelled Hgb (12.0 - 16.0 G/DL) 11.6 L Cancelled Hct (37 - 47 %) 34.9 L Cancelled MCV (81.0 - 99.0 FL) 96.9 Cancelled MCH (27.0 - 31.0 PG) 32.3 H Cancelled RDW (11.5 - 14.5 %) 12.8 Cancelled Plt Count (130 - 400 /CUMM) 140 Cancelled MPV (7.4 - 10.4 FL) 10.6 H Cancelled Gran % (42.2 - 75.2 %) 83.8 H Lymphocytes % (20.5 - 51.1 %) 9.1 L Monocytes % (1.7 - 9.3 %) 6.8 Eosinophils % (0 - 5 %) 0.1 Basophils % (0.0 - 2.0 %) 0.2 Absolute Granulocytes (1.4 - 6.5 /CUMM) 3.5 Absolute Lymphocytes (1.2 - 3.4 /CUMM) 0.4 L Absolute Monocytes (0.10 - 0.60 /CUMM) 0.3 Absolute Eosinophils (0.0 - 0.7 /CUMM) 0 Absolute Basophils (0.0 - 0.2 /CUMM) 0 PUBS MCHC (33.0 - 37.0 G/DL) 33.3 Cancelled A/P; 65 y/o F with pmh sig for throat cancer(status post chemotherapy and radiation, last chemo 03/22/2013), PEG tube (since January 2013 ), hypothyroidism,ch resp failure, COPD(2-3 L of home oxygen, no BiPAP) is admitted with acute on chronic respiratory failure as evidenced by tachypnea, tachycardia and hypoxia. Patient has acute COPD exacerbation and acute bronchitis. Agree with decreasing the Solu-Medrol to every 12 hours today. Continue TRC nebs and continue azithromycin. Will follow-up on sputum culture. Patient requesting something for sleep, okay to use melatonin at night. Appreciate pulmonology input. Please order some Tessalon Perles for cough. DVT px; lovenox.
--- NOTE | 2016-07-31 11:21 | PN- Pulmonary ---
See Addendum Subjective HPI/Critical Care Issues: 65 YO woman with pmh of COPD (3L oxygen at baseline); with 40 year h/o smoking 2PPD, throat cancer (s/p chemotherapy/radiation, last chemotherapy 03/2013) PEG tube, hypothyroidism, who presented yestreday complaining of shortness of breath for the past several weeks with cough and whitish sputum production. Reports that she is still coughing and had difficulty sleep last night due to her symptoms. Remains at baseline oxygen requirements. Objective Current Medications: Current Medications Sig/Kody Start time Last Medication Dose Route Stop Time Status Admin Acetaminophen 1,000 MG Q6P PRN 07/30 2100 AC N/A 1 UNIT IV Acetaminophen 325 MG Q6 PRN 07/30 1115 AC PO Albuterol Sulfate 3 ML EVERY 4 HRS/AWAKE 07/30 1600 AC 07/31 INH 0913 Albuterol Sulfate 2 PUF 4 TIMES/DAY 07/30 1400 DC INH Albuterol Sulfate 2 PUF 4 TIMES/DAY PRN 07/30 1345 AC INH Alprazolam 0.25 MG TID 07/30 1600 AC 07/31 PO 08/06 1559 0810 Azithromycin 500 MG DAILY 07/31 1000 AC Sodium Chloride 250 ML IV 08/03 2000 Azithromycin 500 MG ONCE ONE 07/30 1215 DC 07/30 Sodium Chloride 250 ML IV 07/30 1314 1542 Budesonide/ 2 PUF BID 07/30 2200 AC 07/31 Formoterol Fumarate INH 0810 Ceftriaxone Sodium 1,000 MG ONCE ONE 07/30 1215 CAN IV 07/30 1216 Enoxaparin Sodium 40 MG DAILY 07/30 1107 AC 07/31 SC 0809 Levothyroxine Sodium 0.137 MG DAILY AC 07/31 0700 AC 07/31 PO 0810 Melatonin 3 MG ONCE ONE 07/31 0400 DC 07/31 PO 07/31 0401 0433 Methylprednisolone 40 MG Q12H 07/31 1800 AC IV Methylprednisolone 40 MG Q8 07/31 0600 DC IV Methylprednisolone 40 MG Q8 07/30 2200 DC 07/31 IV 0600 Methylprednisolone 40 MG Q8 07/30 1400 DC IV Oxycodone HCl 5 MG Q6 PRN 07/30 1115 AC PO Oxycodone/ 2 TAB Q6 PRN 07/30 1115 AC Acetaminophen PO Sodium Chloride 1,000 ML Q20H 07/30 1200 DC 07/30 IV 07/31 0759 1303 Sodium Chloride 1,000 ML BOLUS ONE 07/30 1100 DC 07/30 IV 07/30 1159 1131 Tiotropium [place] 1 PUF DAILY 07/31 1000 AC 07/31 INH 0809 Vital Signs & I&O Last 24 Hrs of Vitals and I&O: Vital Signs Date Time Temp Pulse Resp B/P B/P Pulse O2 O2 Flow FiO2 Mean Ox Delivery Rate 07/31 0917 96 Nasal 3.0L Cannula 07/31 0556 97.7 79 24 118/60 97 Nasal 3.0L Cannula 07/31 0000 Nasal 3.0L Cannula 07/30 2148 97.7 81 19 110/60 93 07/30 1649 96 Nasal 3.0L Cannula 07/30 1600 Nasal 3.0L Cannula 07/30 1449 97.9 91 20 132/74 92 Nasal 3.0L Cannula 07/30 1412 Nasal 3.0L Cannula 07/30 1412 96 Nasal 3.0L Cannula 07/30 1343 92 Nasal 3.0L Cannula 07/30 1256 97.9 91 20 132/74 92 Nasal 3.0L Cannula 07/30 1232 98.3 107 16 125/60 94 Nasal 3.0L Cannula Intake & Output 07/31 1600 07/31 0800 07/31 0000 Intake Total 560 420 Output Total 400 600 Balance 160 -180 Intake, IV 420 400 Intake, Oral 0 Intake, Tube 140 20 Feeding Output, Urine 400 600 Exam General Appearance: alert, awake, cachetic, mild distress Head: atraumatic Neck: normal inspection, supple Respiratory: decreased breath sounds, wheezing Cardiovascular: regular rate/rhythm, normal peripheral pulses Abdomen: normal bowel sounds, soft (peg tube in place) Extremities: no edema Neurologic/Psychiatric: awake, alert, oriented x 3 Results Last 24 Hrs of Lab Results: Laboratory Tests 07/31/16 0630: Anion Gap 4 L, Estimated GFR > 60, BUN/Creatinine Ratio 30.0 H, CBC w Diff NO MAN DIFF REQ, RBC 3.60 L, MCV 96.9, MCH 32.3 H, RDW 12.8, MPV 10.6 H, Gran % 83.8 H, Lymphocytes % 9.1 L, Monocytes % 6.8, Eosinophils % 0.1, Basophils % 0.2, Absolute Granulocytes 3.5, Absolute Lymphocytes 0.4 L, Absolute Monocytes 0.3, Absolute Eosinophils 0, Absolute Basophils 0, PUBS MCHC 33.3 07/30/16 1204: Sodium Cancelled, Potassium Cancelled, Chloride Cancelled, Carbon Dioxide Cancelled, Anion Gap Cancelled, BUN Cancelled, Creatinine Cancelled, BUN/ Creatinine Ratio Cancelled, CBC w Diff Cancelled, WBC Cancelled, RBC Cancelled, Hgb Cancelled, Hct Cancelled, MCV Cancelled, MCH Cancelled, RDW Cancelled, Plt Count Cancelled, MPV Cancelled, PUBS MCHC Cancelled 07/30/16 1135: Lactic Acid 1.0 Impression/Plan Impression/Plan Impression/Plan: 65 YO woman with pmh of COPD (3L oxygen at baseline); with 40 year h/o smoking 2PPD, throat cancer (s/p chemotherapy/radiation, last chemotherapy 03/2013) PEG tube, hypothyroidism, who presented to the ER this morning complaining of shortness of breath for the past several weeks with cough and whitish sputum production. Her symptoms have not improved, and is still coughing. Recommendations: At this time as she has not improved would not taper steroids and keep at same dose today. Continue azithromycin, spirva, symbicort with TRC and nebulizers. Monitor O2 saturations keeping them >92%. F/u cultures. DVT ppx. Records for ECHO and pulmonology records pending, will review once in chart. Problem List: 1. COPD with exacerbation
[2016-07-31 15:02] VITALS: BP 118/58
[2016-07-31 22:21] VITALS: BP 120/70
[2016-08-01 07:14] VITALS: BP 127/60
--- NOTE | 2016-08-01 07:24 | PN- Housestaff ---
KIMBERLEE JAMES 08/01/16 0723: Subjective Follow-up For: Acute hypoxic, hypercarbic respiratory failure Hypothyroidism History of throat cancer status post RCT Complaints: no complaints Subjective: Pt comfortable. Remained afebrile overnight. Currently on 3L oxygen. Feels tired , but doesnt have any chest pain or shortness of breath. Review of Systems Constitutional: Reports: see HPI. Objective Last 24 Hrs of Vital Signs/I&O Vital Signs Date Time Temp Pulse Resp B/P B/P Pulse O2 O2 Flow FiO2 Mean Ox Delivery Rate 08/01 0714 97.1 62 20 127/60 94 Nasal 3.0L Cannula 08/01 0341 97 Nasal 3.0L Cannula 08/01 0000 95 Nasal 3.0L Cannula 07/31 2221 97.6 81 20 120/70 95 07/31 1603 95 Nasal 3.0L Cannula 07/31 1600 96 Nasal 3.0L Cannula 07/31 1502 98.1 79 20 118/58 97 Nasal 3.0L Cannula 07/31 0917 96 Nasal 3.0L Cannula 07/31 0800 Nasal 3.0L Cannula Intake & Output 08/01 0800 08/01 0000 07/31 1600 Intake Total 0 200 490 Output Total 250 600 Balance -250 -400 490 Intake, IV 0 Intake, Oral 0 Intake, 200 TPN/PPN Intake, Tube 240 Feeding Intake, Tube 250 Irrigant Number 0 Bowel Movements Output, Other 0 Output, Urine 250 600 Patient 148 lb Weight Physical Exam General Appearance: No Acute Distress Other Physical Findings: General Appearance: Alert, Oriented X3, Cooperative Skin: No Rashes, No Breakdown, PEG tube in place HEENT: Atraumatic, PERRLA Neck: Supple Cardiovascular: Normal S1, Normal S2 Lungs: decreased air entry, b/l wheezing Abdomen: Normal Bowel Sounds, Soft, No Tenderness Neurological: Strength at 5/5 X4 Ext, Sensation Intact, Cranial Nerves 3-12 NL Extremities: No Clubbing, No Cyanosis Vascular: Pulses Symmetrical Current Medications: Current Medications Sig/Kody Start time Last Medication Dose Route Stop Time Status Admin Acetaminophen 1,000 MG Q6P PRN 07/30 2100 AC 08/01 N/A 1 UNIT IV 0722 Acetaminophen 325 MG Q6 PRN 07/30 1115 AC PO Albuterol Sulfate 3 ML EVERY 4 HRS/AWAKE 07/30 1600 AC 08/01 INH 0330 Albuterol Sulfate 2 PUF 4 TIMES/DAY PRN 07/30 1345 AC INH Alprazolam 0.25 MG TID 07/30 1600 AC 07/31 PO 08/06 1559 2027 Azithromycin 500 MG DAILY 07/31 1000 AC 07/31 Sodium Chloride 250 ML IV 08/03 2000 1241 Budesonide/ 2 PUF BID 07/30 2200 AC 07/31 Formoterol Fumarate INH 2017 Enoxaparin Sodium 40 MG DAILY 07/30 1107 AC 07/31 SC 0809 Guaifenesin/ 10 ML Q6P PRN 07/31 1445 AC 07/31 Dextromethorphan PO 2215 Levothyroxine Sodium 0.137 MG DAILY AC 07/31 0700 AC 08/01 PO 0619 Melatonin 5 MG AT BEDTIME 07/31 2200 AC 07/31 PO 2215 Methylprednisolone 40 MG Q12H 07/31 1800 AC 08/01 IV 0613 Methylprednisolone 40 MG Q8 07/30 2200 DC 07/31 IV 0600 Omeprazole 40 MG DAILY AC 07/31 1445 AC 08/01 PO 0619 Oxycodone HCl 5 MG Q6 PRN 07/30 1115 AC PO Oxycodone/ 2 TAB Q6 PRN 07/30 1115 AC Acetaminophen PO Patient Medication 1 ED .STK-MED ONE 07/31 1407 DC Teaching ED 07/31 1408 Sodium Chloride 1,000 ML Q20H 07/30 1200 DC 07/30 IV 07/31 0759 1303 Tiotropium [place] 1 PUF DAILY 07/31 1000 AC 07/31 INH 0809 Trazodone HCl 50 MG .STK-MED ONE 07/31 2213 DC PO 07/31 2214 Trazodone HCl 12.5 MG ONCE ONE 07/31 2100 DC 07/31 PO 07/31 2101 2215 Assessment/Plan Assessment: Patient is a 60-year-old female with past history significant for throat cancer (s/p chemotherapy, radiotherapy, PEG tube placement), hypothyroidism, COPD(2-3 L home oxygen) presented with progressive worsening of shortness of breath and fatigue for the past 1 week she was admitted acute hypoxic respiratory failure secondary to COPD exacerbation. In the ED vitals :temperature 96.5, pulse 105, respiration 18, blood pressure 143/67, saturating 94% on 3L Labs showed normal white count, H&H 12.4 with 36.8, sodium 138, potassium 4.3, normal lactic acid level, troponin 0.01, proBNP 402, d-dimer less than 200. ABG 7.40/48/91/29 EKG: Normal sinus rhythm, 88 beats per minute, no ST-T wave changes, QTC 441 Patient received nebulizers, 125 Solu-Medrol, IV Tylenol and 1 L fluid bolus in the ED Plan Admitted to general medicine floor Acute hypoxic hypercarbic respiratory failure likely secondary to COPD exacerbation * Started on IV Solu-Medrol 40 every 8 --> converted to 40 every 12, and plan to continue the same dose, the till the resolution of wheezing. * Azithromycin for anti-inflammatory properties * Cultures are negative so far * Echocardiogram from [place] was normal with ejection fraction of 55%, no wall motion abnormalities. * Started on Robitussin for productive cough * TRC/nebs * Pulmonary consult appreciated history of throat cancer, status post radiotherapy and chemotherapy * PEG tube placement since January 2013 * Nothing by mouth on tube feeds * Follows up with Dr. Busch at [facility] Hypothyroidism * Continue home medication levothyroxine 137 g. Hold tube feeds an hour before and after the administration of levothyroxine. Anxiety * continue home dose Xanax 0.25 mg 3 times a day * Melatonin 5 mg at bedtime for insomnia Pain management * Roxicodone 5 mg every 6 when necessary * Percocet 2 tabs every 6 when necessary * Tylenol for mild pain DVT prophylaxis * Subcutaneous Lovenox CODE STATUS * Full code Problem List: 1. COPD with exacerbation Pain Ratin Pain Location: back Pain Goal: Pain 4 or less Pain Plan: percocet, tylenolol Tomorrow's Labs & Rationales: no labs. pt stable. PAL PORTILLO,MENDEL 08/01/16 1332: Attending MD Review Statement Attending Statement Attending MD Statement: examined this patient, discuss w/resident/PA/LOCKSTITCH LINING SETTER, agreed w/resident/PA/LOCKSTITCH LINING SETTER, reviewed EMR data (avail), discussed with nursing, discussed with case mgmt, reviewed images, amended to note Attending Assessment/Plan: Patient seen and examined, not feeling much better. Still complaining of some dyspnea and shortness of breath. Still coughing. Still requiring 3 L of oxygen. On Lung exam; she has decraesed cbs b/l. At this point we'll continue on the same dose of steroids. Continue azithromycin, TRC nebs and follow-up on sputum cultures. DVT px; Lovenox.
--- NOTE | 2016-08-01 09:00 | NUR ---
PATIENT AMBULATING BACK FROM BATHROOM; AMBULATES INDEPENDENTLY; PATIENT DID GET SHORT OF BREATH WHILE AMBULATING DESATURATING TO 87% ON 3L NC; PATIENT ASSISTED BACK TO BED AND OXYGEN SATURATION SLOWLY IMPROVED TO 95% ON 3L NC; DR WINTERS AT BEDSIDE TO ASSESS PATIENT AT THIS TIME; CALL [facility] AND NEEDS WITHIN REACH; SAFETY MAINTAINED;
--- NOTE | 2016-08-01 10:42 | PN- Pulmonary ---
EMMA PORTILLO,SANJEEV 08/01/16 1035: Subjective HPI/Critical Care Issues: 65 YO woman with pmh of COPD (3L oxygen at baseline); with 40 year h/o smoking 2PPD, throat cancer (s/p chemotherapy/radiation, last chemotherapy 03/2013) PEG tube, hypothyroidism, who presented complaining of shortness of breath for the past several weeks with cough and whitish sputum production. Reports that she is still coughing and felt short of breath this morning while walking to the bathroom. Objective Current Medications: Current Medications Sig/Kody Start time Last Medication Dose Route Stop Time Status Admin Acetaminophen 1,000 MG Q6P PRN 07/30 2100 AC 08/01 N/A 1 UNIT IV 0722 Acetaminophen 325 MG Q6 PRN 07/30 1115 AC PO Albuterol Sulfate 3 ML EVERY 4 HRS/AWAKE 07/30 1600 AC 08/01 INH 0759 Albuterol Sulfate 2 PUF 4 TIMES/DAY PRN 07/30 1345 AC INH Alprazolam 0.25 MG TID 07/30 1600 AC 08/01 PO 08/06 1559 0917 Azithromycin 500 MG DAILY 07/31 1000 AC 08/01 Sodium Chloride 250 ML IV 08/03 2000 0917 Budesonide/ 2 PUF BID 07/30 2200 AC 08/01 Formoterol Fumarate INH 0916 Enoxaparin Sodium 40 MG DAILY 07/30 1107 AC 08/01 SC 0916 Guaifenesin/ 10 ML Q6P PRN 07/31 1445 AC 07/31 Dextromethorphan PO 2215 Levothyroxine Sodium 0.137 MG DAILY AC 07/31 0700 AC 08/01 PO 0800 Melatonin 5 MG AT BEDTIME 07/31 2200 AC 07/31 PO 2215 Methylprednisolone 40 MG Q12H 07/31 1800 AC 08/01 IV 0613 Omeprazole 40 MG DAILY AC 07/31 1445 AC 08/01 PO 0619 Oxycodone HCl 5 MG Q6 PRN 07/30 1115 AC PO Oxycodone/ 2 TAB Q6 PRN 07/30 1115 AC Acetaminophen PO Patient Medication 1 ED .STK-MED ONE 07/31 1407 DC Teaching ED 07/31 1408 Tiotropium [place] 1 PUF DAILY 07/31 1000 AC 08/01 INH 0917 Trazodone HCl 50 MG .STK-MED ONE 07/31 2213 DC PO 07/31 2214 Trazodone HCl 12.5 MG ONCE ONE 07/31 2100 DC 07/31 PO 07/31 2101 2215 Vital Signs & I&O Last 24 Hrs of Vitals and I&O: Vital Signs Date Time Temp Pulse Resp B/P B/P Pulse O2 O2 Flow FiO2 Mean Ox Delivery Rate 08/01 0816 96 Nasal 3.0L Cannula 08/01 0714 97.1 62 20 127/60 94 Nasal 3.0L Cannula 08/01 0341 97 Nasal 3.0L Cannula 08/01 0000 95 Nasal 3.0L Cannula 07/31 2221 97.6 81 20 120/70 95 07/31 1603 95 Nasal 3.0L Cannula 07/31 1600 96 Nasal 3.0L Cannula 07/31 1502 98.1 79 20 118/58 97 Nasal 3.0L Cannula Intake & Output 08/01 1600 08/01 0800 08/01 0000 Intake Total 620 200 Output Total 250 600 Balance 370 -400 Intake, IV 0 Intake, Oral 0 Intake, 200 TPN/PPN Intake, Tube 320 Feeding Intake, Tube 300 Irrigant Number 0 Bowel Movements Output, Other 0 Output, Urine 250 600 Exam General Appearance: alert, awake, mild distress, thin Head: atraumatic, normal appearance Neck: normal inspection, supple Respiratory: decreased breath sounds, wheezing Cardiovascular: regular rate/rhythm, normal peripheral pulses Abdomen: normal bowel sounds, soft (peg tube in place) Extremities: no edema Neurologic/Psychiatric: awake, alert, oriented x 3 Impression/Plan Impression/Plan Impression/Plan: 65 YO woman with pmh of COPD (3L oxygen at baseline); with 40 year h/o smoking 2PPD, throat cancer (s/p chemotherapy/radiation, last chemotherapy 03/2013) PEG tube, hypothyroidism, who presented to the ER this morning complaining of shortness of breath for the past several weeks with cough and whitish sputum production. Wheezing has improved, however destaturated this am while ambulating to the bathroom. Recommendations: Would not taper steroids and keep at same dose today. Continue azithromycin, spirva, symbicort with TRC and nebulizers. Monitor O2 saturations keeping them > 92%. F/u cultures. DVT ppx. Recommend PT evaluation, as well as pulmonary rehab. This has been discussed with her in detail, though she is worried about who will take care of her mother with whom she lives with. MATTHEW WINTERS MD 08/01/16 1159: Impression/Plan Impression/Plan Impression/Plan: Matthew Valdovinos M.D. have examined this patient, reviewed available EMR data, personally reviewed images, discussed with resident/PA/SECURITY INTELLIGENCE ANALYST, discussed management plan with housestaff and nursing staff, discussed managment plan all of healthcare providers, discussed management plan with patient and/or family, agreed with resident/PA/SECURITY INTELLIGENCE ANALYST. The past history and parts of the chart have been autopopulated.
[2016-08-01 14:29] VITALS: BP 110/58
--- NOTE | 2016-08-01 15:22 | NUR ---
PHYSICAL THERAPY: RECIEVED CONSULT ORDERS, REVIEWED CHART, SPOKE TO RN. PER MEDICAL NOTE AND RNHAILEY, Pt IS INDEPDENENT AND SAFE WITH AMBULATION. Pt LIVES WITH MOTHER AND IS MAIN CAREGIVER FOR. INDEPENDENT WITH ADLs/IADLs. NO CLINICAL NEED FOR SKILLED ACUTE P.T. SERVICES AT THIS TIME. WILL NOT FOLLOW.
[2016-08-01 22:01] VITALS: BP 116/64
--- NOTE | 2016-08-02 06:48 | PN- Housestaff ---
See Addendum Subjective Follow-up For: Acute hypoxic, hypercarbic respiratory failure Hypothyroidism History of throat cancer status post RCT Complaints: no complaints Subjective: Patient seen and examined at bedside this AM. She was sitting up in bed in no acute distress on O2 at 3 L (same as home). Patient reports she feels congested and is requesting water flushes through PEG tube be increased. I have reached out to nutrition and they will make further recommendations about increasing water intake as well as possibly changing tube feeds from continuous to possibly only at night (how patient feeds at home). Review of Systems Constitutional: Denies: chills, fever. EENTM: Reports: nasal congestion. Denies: blurred vision, visual changes, hearing changes. Cardiovascular: Denies: chest pain, palpitations. Respiratory: Reports: cough, short of breath, wheezing. Gastrointestinal: Denies: abdominal pain, nausea, vomiting. Genitourinary: Denies: dysuria. Musculoskeletal: Denies: back pain. Skin: Denies: rash. Neurological/Psychological: Denies: confusion, headache. Hematologic/Endocrine: Denies: bruising, bleeding. Immunologic/Allergic: Denies: splenectomy. Objective Last 24 Hrs of Vital Signs/I&O Vital Signs Date Time Temp Pulse Resp B/P B/P Pulse O2 O2 Flow FiO2 Mean Ox Delivery Rate 08/02 1009 Nasal 3.0L Cannula 08/02 0744 96 Nasal 3.0L Cannula 08/02 0652 98.0 80 20 130/72 96 Nasal 2.0L Cannula 08/02 0515 97 Nasal 3.0L Cannula 08/01 2201 97.6 88 22 116/64 96 08/01 1625 95 Nasal 3.0L Cannula 08/01 1600 Nasal 3.0L Cannula 08/01 1429 97.4 89 20 110/58 99 Nasal 3.0L Cannula Intake & Output 08/02 1600 08/02 0800 08/02 0000 Intake Total 958 653 Output Total 400 500 Balance 558 153 Intake, IV 100 20 Intake, Oral 0 0 Intake, Tube 408 408 Feeding Intake, Tube 450 225 Irrigant Number 0 Bowel Movements Output, Urine 400 500 Physical Exam General Appearance: Alert, Oriented X3, Cooperative, No Acute Distress Skin: No Significant Lesion Skin Temp/Moisture Exam: Warm/Dry HEENT: Atraumatic, PERRLA, EOMI, Slightly dry mucous membranes Neck: Supple, No JVD Cardiovascular: Regular Rate, Normal S1, Normal S2 Lungs: Clear to Auscultation, Normal Air Movement Abdomen: Normal Bowel Sounds, No Tenderness Neurological: Normal Speech, Normal Tone Extremities: No Clubbing, No Cyanosis, No Tenderness/Swelling Vascular: Pulses Symmetrical Current Medications: Current Medications Sig/Kody Start time Last Medication Dose Route Stop Time Status Admin Acetaminophen 1,000 MG Q6P PRN 07/30 2100 AC 08/02 N/A 1 UNIT IV 0540 Acetaminophen 325 MG Q6 PRN 07/30 1115 AC PO Albuterol Sulfate 3 ML EVERY 4 HRS/AWAKE 07/30 1600 AC 08/02 INH 0743 Albuterol Sulfate 2 PUF 4 TIMES/DAY PRN 07/30 1345 AC INH Alprazolam 0.25 MG TID 07/30 1600 AC 08/02 PO 08/06 1559 0905 Azithromycin 500 MG DAILY 07/31 1000 AC 08/02 Sodium Chloride 250 ML IV 08/03 2000 0903 Budesonide/ 2 PUF BID 07/30 2200 AC 08/02 Formoterol Fumarate INH 0904 Enoxaparin Sodium 40 MG DAILY 07/30 1107 AC 08/02 SC 0905 Famotidine 20 MG ONCE ONE 08/02 1100 DC IV 08/02 1101 Guaifenesin/ 10 ML Q6 08/02 1200 UNVr Dextromethorphan PO Guaifenesin/ 10 ML Q6P PRN 07/31 1445 DC 08/01 Dextromethorphan PO 2134 Levothyroxine Sodium 0.137 MG DAILY AC 07/31 0700 AC 08/02 PO 0657 Melatonin 5 MG AT BEDTIME 07/31 2200 AC 08/01 PO 2107 Methylprednisolone 40 MG Q12H 07/31 1800 DC 08/02 IV 0537 Omeprazole 40 MG DAILY AC 07/31 1445 DC 08/01 PO 0619 Oxycodone HCl 5 MG Q6 PRN 07/30 1115 AC PO Oxycodone/ 2 TAB Q6 PRN 07/30 1115 AC Acetaminophen PO Prednisone 60 MG DAILY 08/03 1000 UNVr PO Prednisone 20 MG ONCE ONE 08/02 1115 UNVr PO 08/02 1116 Tiotropium [place] 1 PUF DAILY 07/31 1000 AC 08/02 INH 0902 Orders Radiology Findings: CXR: IMPRESSION: Clear lungs. Assessment/Plan Assessment: Ms. Loya is a pleasant 60-year-old female with past history significant for throat cancer (s/p chemotherapy, radiotherapy, PEG tube placement), hypothyroidism, COPD (3 L home oxygen) who presented to the [place] ED on with progressive worsening of shortness of breath and fatigue for about one week. In the ED: Vital signs showed T 96.5, HR 105, RR 18, BP 143/67, O2 sat 94% on 3L. Labs showed: WBC 6.5, H&H 12.4/36.8, Na 138, K 4.3, normal lactic acid level, troponin 0.01, proBNP 402, d-dimer < 200. ABG showed: 7.40/48/91/29 EKG: NSR, HR 88 bpm, no ST-T wave changes, QTC 441. Patient was admitted to the general medicine floor and the following is the current management: 1. Acute hypoxic and hypercarbic respiratory failure secondary to COPD exacerbation * Patient started on IV solumedrol since admission, will transition to 60 mg PO prednisone today and continue slow taper. * Azithromycin for anti-inflammatory properties. * Blood cultures so far show no growth to date, urine legionella/strep antigens negative * Will switch guaifenesin to 10 mg PO liquid via PEG tube per Pulm recommendations to improve congestion * Echocardiogram from [facility] showed normal ejection fraction of 55%, no wall motion abnormalities, thus cardiac source of shortness of breath less likely * Continue TRC/neb, symbicort, spiriva, supplemental O2 at home O2 requirement ( 3L) * Pulmonary consult appreciated, continue to follow rec's * Patient would greatly benefit from pulmonary rehabilitation, pending PT recommendations 2. History of throat cancer status post radiotherapy & chemotherapy * PEG tube placement since January 2013 * Nothing by mouth on tube feeds * Follows up with Dr. Narayan MD at [facility], will have patient follow up after discharge for continued care * Pepcid via PEG tube 3. Hypothyroidism * Continue home medication levothyroxine 137 g. * Hold tube feeds an hour before and after the administration of levothyroxine. 4. Anxiety * Continue home dose Xanax 0.25 mg 3 times a day * Melatonin 5 mg at bedtime for insomnia. 5. Pain management * Roxicodone 5 mg every 6 when necessary * Percocet 2 tabs every 6 when necessary * Tylenol for mild pain when necessary 6. DVT prophylaxis * Subcutaneous Lovenox 7. CODE STATUS * Full code 8. Diet * Jevity 1.5 via PEG tube Problem List: 1. COPD with exacerbation 2. Throat cancer 3. Status post insertion of percutaneous endoscopic gastrostomy (PEG) tube Pain Ratin Pain Location: n/a Pain Goal: Remain pain free Pain Plan: PRN pain scale Tomorrow's Labs & Rationales: None.
[2016-08-02 06:52] VITALS: BP 130/72
--- NOTE | 2016-08-02 10:39 | PN- Pulmonary ---
EMMA PORTILLO,SANJEEV 08/02/16 1031: Subjective HPI/Critical Care Issues: 65 YO woman with pmh of COPD (3L oxygen at baseline); with 40 year h/o smoking 2PPD, throat cancer (s/p chemotherapy/radiation, last chemotherapy 03/2013) PEG tube, hypothyroidism, who presented complaining of shortness of breath for the past several weeks with cough and whitish sputum production. Shortness of breath has improved this morning. Still complains of ongoing cough. Objective Current Medications: Current Medications Sig/Kody Start time Last Medication Dose Route Stop Time Status Admin Acetaminophen 1,000 MG Q6P PRN 07/30 2100 AC 08/02 N/A 1 UNIT IV 0540 Acetaminophen 325 MG Q6 PRN 07/30 1115 AC PO Albuterol Sulfate 3 ML EVERY 4 HRS/AWAKE 07/30 1600 AC 08/02 INH 0743 Albuterol Sulfate 2 PUF 4 TIMES/DAY PRN 07/30 1345 AC INH Alprazolam 0.25 MG TID 07/30 1600 AC 08/02 PO 08/06 1559 0905 Azithromycin 500 MG DAILY 07/31 1000 AC 08/02 Sodium Chloride 250 ML IV 08/03 2000 0903 Budesonide/ 2 PUF BID 07/30 2200 AC 08/02 Formoterol Fumarate INH 0904 Enoxaparin Sodium 40 MG DAILY 07/30 1107 AC 08/02 SC 0905 Guaifenesin/ 10 ML Q6P PRN 07/31 1445 AC 08/01 Dextromethorphan PO 2134 Levothyroxine Sodium 0.137 MG DAILY AC 07/31 0700 AC 08/02 PO 0657 Melatonin 5 MG AT BEDTIME 07/31 2200 AC 08/01 PO 2107 Methylprednisolone 40 MG Q12H 07/31 1800 AC 08/02 IV 0537 Omeprazole 40 MG DAILY AC 07/31 1445 AC 08/01 PO 0619 Oxycodone HCl 5 MG Q6 PRN 07/30 1115 AC PO Oxycodone/ 2 TAB Q6 PRN 07/30 1115 AC Acetaminophen PO Tiotropium [place] 1 PUF DAILY 07/31 1000 AC 08/02 INH 0902 Vital Signs & I&O Last 24 Hrs of Vitals and I&O: Vital Signs Date Time Temp Pulse Resp B/P B/P Pulse O2 O2 Flow FiO2 Mean Ox Delivery Rate 08/02 1009 Nasal 3.0L Cannula 08/02 0744 96 Nasal 3.0L Cannula 08/02 0652 98.0 80 20 130/72 96 Nasal 2.0L Cannula 08/02 0515 97 Nasal 3.0L Cannula 08/01 2201 97.6 88 22 116/64 96 08/01 1625 95 Nasal 3.0L Cannula 08/01 1600 Nasal 3.0L Cannula 08/01 1429 97.4 89 20 110/58 99 Nasal 3.0L Cannula Intake & Output 08/02 1600 08/02 0800 08/02 0000 Intake Total 958 653 Output Total 400 500 Balance 558 153 Intake, IV 100 20 Intake, Oral 0 0 Intake, Tube 408 408 Feeding Intake, Tube 450 225 Irrigant Number 0 Bowel Movements Output, Urine 400 500 Exam General Appearance: alert, awake, mild distress Head: atraumatic, normal appearance Neck: normal inspection, supple Respiratory: minimal wheeze, b/l Cardiovascular: regular rate/rhythm, normal peripheral pulses Abdomen: normal bowel sounds, soft, peg tube in place Extremities: no edema Neurologic/Psychiatric: awake, alert, oriented x 3 Impression/Plan Impression/Plan Impression/Plan: 65 YO woman with pmh of COPD (3L oxygen at baseline); with 40 year h/o smoking 2PPD, throat cancer (s/p chemotherapy/radiation, last chemotherapy 03/2013) PEG tube, hypothyroidism. Wheezing has improved, still complains of cough with little expectoration. Recommendations: Would taper steroids today, prednisone 60mg po. Continue azithromycin, spirva, symbicort with TRC and nebulizers. Would trial guaifenesin (short acting) solution through PEG tube to aid in relief of chest congestion. Monitor O2 saturations keeping them >92%. F/u cultures. DVT ppx. Recommend PT evaluation, as well as pulmonary rehab. This has been discussed with her in detail, though she is worried about who will take care of her mother with whom she lives with. Please obtain records from previous last scourer at [place]. MATTHEW WINTERS MD 08/02/16 1310: Impression/Plan Impression/Plan Recommendations: Matthew Valdovinos M.D. have examined this patient, reviewed available EMR data, personally reviewed images, discussed with resident/PA/ART HISTORY INSTRUCTOR, discussed management plan with housestaff and nursing staff, discussed managment plan all of healthcare providers, discussed management plan with patient and/or family, agreed with resident/PA/ART HISTORY INSTRUCTOR. The past history and parts of the chart have been autopopulated. taper steroids doing better consideration for rehab/dc planning aspiration precautions dvt prophylaxis at all times
[2016-08-02] MEDS ORDERED: PREDNISONE10 M2 PO (13:21)
[2016-08-02] MEDS ORDERED: GUAIFENESIN DM S5 ML PO (13:21)
--- NOTE | 2016-08-02 13:22 | Patient Discharge Instructions ---
Discharge Instructions General Discharge Information You were seen/treated for: COPD exacerbation Special Instructions: Please follow up with your PCP within 7 days of discharge. Please follow up with Dr. Rigoberto MD within 7 days of discharge. Please take all medications as directed. Diet Recommended Diet: Heart Healthy Activity Activity Self Limited: Yes Acute Coronary Syndrome Inclusion Criteria At DC or during hospital stay patient has or had the following: ACS DIAGNOSIS No Discharge Core Measures Meds if any: Prescribed or Continued at Discharge Meds if any: NOT Prescribed or Continued at Discharge Congestive Heart Failure Inclusion Criteria At DC or during hospital stay patient has or had the following: CHF DIAGNOSIS No Discharge Core Measures Meds if any: Prescribed or Continued at Discharge Meds if any: NOT Prescribed or Continued at Discharge Cerebrovascular accident Inclusion Criteria At DC or during hospital stay patient has or had the following: CVA/TIA Diagnosis No Discharge Core Measures Meds if any: Prescribed or Continued at Discharge Meds if any: NOT Prescribed or Continued at Discharge Venous thromboembolism Inclusion Criteria VTE Diagnosis No VTE Type NONE VTE Confirmed by (Test) NONE Discharge Core Measures - Per Current guidelines, there needs to be overlap - treatment for the first 5 days of Warfarin therapy. - If discharged on Warfarin prior to 5 days of - overlap therapy, the patient will need to be - assessed for post discharge needs including - *Post discharge parental anticoagulation - *Warfarin and/or parental anticoagulation education - *Follow up date to check INR post discharge At least 5 days overlap therapy as Inpatient No Meds if any: Prescribed or Continued at Discharge Note: Overlap Therapy is Warfarin and Anticoagulant Meds if any: NOT Prescribed or Continued at Discharge
--- NOTE | 2016-08-02 13:51 | Discharge Summary ---
Visit Information Visit Dates Admission Date: 07/30/16 Discharge Date: 08/03/2016 Hospital Course Course Attending Physician: MENDEL AGUILLON MD Primary Care Physician: LYNDON URIAS MD, V. Hospital Course: 65 YO woman with pmh of COPD (3L oxygen at baseline); with 40 year h/o smoking 2PPD, throat cancer (s/p chemotherapy/radiation, last chemotherapy 03/2013) PEG tube, hypothyroidism, who presented yestreday complaining of shortness of breath for the past several weeks with cough and whitish sputum production. Reports that she is still coughing and had difficulty sleep last night due to her symptoms. Remains at baseline oxygen requirements. Patient was admitted for COPD exacerbation most possibly secondary to pneumonia. She was treated with antibiotics and steroid and respiratory therapy. Patient was evaluated by physical therapy , who recommended pulmonary rehab. Patient will complete course of steroid taper as an outpatient and follow up with Dr. Rigoberto MD within 7 days of discharge. She will continue tube feedings for 12 hours at a time (during the night) as she was previously doing prior to admission. Allergies: Coded Allergies: No Known Allergies (07/30/16) Disposition Summary Disposition Principal Diagnosis: COPD exacerbation and pneumonia Additional Diagnosis: end stage COPD Discharge Disposition: SNF Discharge Instructions General Discharge Information Code Status: Full Code Patient's Diet: heart healthy Patient's Activity: as tolerated Follow-Up Instructions/Appts: follow up with your Rigoberto within one week please follow up with your PCP Medications at Discharge Discharge Medications: Continue taking these medications: Alprazolam (Alprazolam) 0.25 MG TABLET 0.25 Milligram ORAL THREE TIMES DAILY Qty = 90 Levothyroxine Sodium (Levothyroxine Sodium) 137 MCG TABLET 137 Microgram ORAL DAILY Qty = 90 Budesonide/Formoterol Fumarate (Symbicort 160-4.5 Mcg Inhaler) 160 MCG-4.5 MCG/ ACTUATION HFA.AER.AD 160 Microgram INHALATION TWICE DAILY Qty = 102 Tiotropium [place] (Spiriva Respimat) 2.5 MCG/ACTUATION MIST.INHAL 2.5 Microgram INHALATION DAILY Qty = 4 Albuterol Sulfate (Proair Hfa) 90 MCG HFA.AER.AD 90 Microgram Inhale through mouth 4 TIMES A DAY Qty = 85 Pantoprazole Sodium (Protonix) 40 MG GRANPKT.DR 40 Milligram ORAL DAILY Qty = 30 Start taking the following new medications: Guaifenesin/Dextromethorphan (Guaifenesin Dm Syrup) 100 MG-10 MG/5 ML SYRUP 10 Milliliters ORAL EVERY SIX HOURS Qty = 1 No Refills Prednisone (Prednisone) 10 MG TABLET 0 ORAL See Instructions Qty = 51 No Refills Instructions: 08/04/16- take 6 tabs 08/05/16-08/07/16- take 5 tabs daily 08/08/16-08/10/16- take 4 tabs daily 08/11/16-08/13/16 take 3 tabs daily 08/14/16-08/16/16- take 2 tabs daily 08/17/16-08/19/16- take 1 tab daily then stop Copies To: BRIDGETT PORTILLO,LYNDON Garcia Attending MD Review Statement Documenting Attending: PAL PORTILLO,MENDEL
[2016-08-02 14:42] VITALS: BP 150/82
--- NOTE | 2016-08-02 18:50 | NUR ---
PT OS RANGED FROM 87% WHEN AMBULATING ON 3L, TO 100% ON 3L WHILE AT REST. SHE COUGHED UP A MODERATE AMOUNT OF THICK YELLOW MUCUS, SAMPLE OBTAINED AND SENT TO LAB. SHE IS AMBULATING IN THE HALLWAY PRESERNTLY, DENIES PAIN. WILL CONTINUE TO MONITOR.
[2016-08-02 23:15] VITALS: BP 119/84
[2016-08-03 07:00] VITALS: BP 138/62
--- NOTE | 2016-08-03 08:20 | PN- Housestaff ---
See Addendum Subjective Follow-up For: Acute hypoxic, hypercarbic respiratory failure Hypothyroidism History of throat cancer status post RCT Subjective: Patient seen and examined at bedside this AM. She reports slight anxiousness as continued shortness of breath. She also admits to very dry mucosa and requested nasal spray; this has previously been ordered but I have changed it to STANDING instead of PRN so patient gets this Q4. I have also requested respiratory to perform chest PT. Patient denies fever, chills, chest pain, abdominal pain. She does admit to slight dizziness which she reports is secondary to low oxygen levels. Review of Systems Constitutional: Denies: chills, fever. EENTM: Reports: nasal congestion. Denies: visual changes, hearing changes. Cardiovascular: Denies: chest pain, palpitations. Respiratory: Reports: cough, short of breath, sputum production. Gastrointestinal: Denies: abdominal pain, nausea, vomiting. Genitourinary: Denies: dysuria, hematuria. Musculoskeletal: Denies: back pain. Skin: Denies: rash. Neurological/Psychological: Denies: confusion, headache. Hematologic/Endocrine: Denies: bruising, bleeding. Immunologic/Allergic: Denies: splenectomy. Objective Last 24 Hrs of Vital Signs/I&O Vital Signs Date Time Temp Pulse Resp B/P B/P Pulse O2 O2 Flow FiO2 Mean Ox Delivery Rate 08/03 0733 98 Nasal 3.0L Cannula 08/03 0700 97.9 92 20 138/62 95 Nasal 3.0L Cannula 08/03 0222 97 Nasal 3.0L Cannula 08/03 0000 94 Nasal 3.0L Cannula 08/02 2315 97.7 84 20 119/84 98 Nasal Cannula 08/02 1614 98 Nasal 3.0L Cannula 08/02 1442 97.8 93 18 150/82 97 Nasal 3.0L Cannula 08/02 1256 95 Nasal 3.0L Cannula 08/02 1245 Nasal 3.0L Cannula 08/02 1243 Nasal 3.0L Cannula 08/02 1009 Nasal 3.0L Cannula Intake & Output 08/03 1600 08/03 0800 08/03 0000 Intake Total 680 325 Output Total 350 Balance 330 325 Intake, Tube 500 225 Feeding Intake, Tube 180 100 Irrigant Number 1 0 Bowel Movements Output, Other Output, Urine 350 Physical Exam General Appearance: Alert, Oriented X3, Cooperative Skin: No Significant Lesion Skin Temp/Moisture Exam: Warm/Dry HEENT: Atraumatic, PERRLA, EOMI, Dry mucous membranes Neck: Supple, No JVD Lymphatic: Cervical nl Cardiovascular: Regular Rate, Normal S1, Normal S2 Lungs: Decreased air entry bilaterally with occasional wheeze; appreciable cough every so often with sputum production Abdomen: Normal Bowel Sounds, Soft, No Tenderness Neurological: Normal Speech, Normal Tone Extremities: No Clubbing, No Cyanosis, No Edema, No Tenderness/Swelling Vascular: Pulses Symmetrical Current Medications: Current Medications Sig/Kody Start time Last Medication Dose Route Stop Time Status Admin Acetaminophen 1,000 MG Q6P PRN 07/30 2100 AC 08/03 N/A 1 UNIT IV 0242 Acetaminophen 325 MG Q6 PRN 07/30 1115 AC PO Albuterol Sulfate 3 ML EVERY 4 HRS/AWAKE 07/30 1600 AC 08/03 INH 0729 Albuterol Sulfate 2 PUF 4 TIMES/DAY PRN 07/30 1345 AC 08/03 INH 0353 Alprazolam 0.25 MG TID 07/30 1600 AC 08/03 PO 08/06 1559 0828 Azithromycin 500 MG DAILY 07/31 1000 AC 08/02 Sodium Chloride 250 ML IV 08/03 2000 0903 Budesonide/ 2 PUF BID 07/30 2200 AC 08/03 Formoterol Fumarate INH 0827 Enoxaparin Sodium 40 MG DAILY 07/30 1107 AC 08/02 SC 0905 Famotidine 20 MG DAILY 08/03 1000 DC IV Famotidine 20 MG DAILY 08/03 1000 AC PO Famotidine 20 MG ONCE ONE 08/02 1100 DC 08/02 IV 08/02 1101 1327 Guaifenesin/ 10 ML Q6 08/03 0600 AC 08/03 Dextromethorphan PO 0613 Guaifenesin/ 10 ML Q6 08/02 1200 DC 08/02 Dextromethorphan PO 1942 Guaifenesin/ 10 ML Q6P PRN 07/31 1445 DC 08/01 Dextromethorphan PO 2134 Levothyroxine Sodium 0.137 MG 8AM 08/03 0800 AC 08/03 PO 0825 Levothyroxine Sodium 0.137 MG DAILY AC 07/31 0700 DC 08/02 PO 0657 Melatonin 5 MG AT BEDTIME 07/31 2200 AC 06/16 PO 2151 Methylprednisolone 40 MG Q12H 07/31 1800 DC 08/02 IV 0537 Omeprazole 40 MG DAILY AC 07/31 1445 DC 08/01 PO 0619 Oxycodone HCl 5 MG Q6 PRN 07/30 1115 AC PO Oxycodone/ 2 TAB Q6 PRN 07/30 1115 AC Acetaminophen PO Patient Medication 1 ED .STK-MED ONE 08/02 1419 DC Teaching ED 08/02 1420 Prednisone 60 MG DAILY 08/03 1000 AC 08/03 PO 0828 Prednisone 20 MG ONCE ONE 08/02 1115 DC 08/02 PO 08/02 1116 1327 Sodium Chloride 2 SPRAY Q4 08/03 1000 AC MICHAEL Sodium Chloride 2 SPRAY Q4P PRN 08/02 1700 DC MICHAEL Tiotropium [place] 1 PUF DAILY 07/31 1000 AC 08/03 INH 0827 Last 24 Hrs of Lab/Bossman Results Last 24 Hrs of Labs/Mics: Microbiology 08/03 0320 LOWER RESP: Respiratory Culture - RECD 08/03 0320 LOWER RESP: Gram Stain - RECD 08/02 175 LOWER RESP: Respiratory Culture - CAN Cancelled: NUMBER OF SQUAMOUS CELLS INDICATES POOR QUALITY SPECIMEN 08/02 1758 LOWER RESP: Gram Stain - CAN Cancelled: NUMBER OF SQUAMOUS CELLS INDICATES POOR QUALITY SPECIMEN Assessment/Plan Assessment: Ms. Loya is a pleasant 60-year-old female with past history significant for throat cancer (s/p chemotherapy, radiotherapy, PEG tube placement), hypothyroidism, COPD (3 L home oxygen) who presented to the [place] ED on with progressive worsening of shortness of breath and fatigue for about one week. In the ED: Vital signs showed T 96.5, HR 105, RR 18, BP 143/67, O2 sat 94% on 3L. Labs showed: WBC 6.5, H&H 12.4/36.8, Na 138, K 4.3, normal lactic acid level, troponin 0.01, proBNP 402, d-dimer < 200. ABG showed: 7.40/48/91/29 EKG: NSR, HR 88 bpm, no ST-T wave changes, QTC 441. Patient was admitted to the general medicine floor and the following is the current management: 1. Acute hypoxic and hypercarbic respiratory failure secondary to COPD exacerbation * Patient started on IV solumedrol since admission, however she has been transitioned to 60 mg PO prednisone and continue slow taper to completion. * Azithromycin for anti-inflammatory properties x 5 days total (day 5/5 today). * Blood cultures so far show no growth to date, urine legionella/strep antigens negative, LRC pending from yesterday * Continue guaifenesin to 10 mg PO liquid via PEG tube per Pulm recommendations to improve congestion, chest PT * Echocardiogram from [facility] showed normal ejection fraction of 55%, no wall motion abnormalities, thus cardiac source of shortness of breath less likely * Continue TRC/neb, symbicort, spiriva, supplemental O2 at home O2 requirement ( 3L) * Pulmonary consult appreciated, continue to follow rec's * Patient would greatly benefit from pulmonary rehabilitation, patient has a bed at [facility] and will discharge later today or tomorrow 2. History of throat cancer status post radiotherapy & chemotherapy * PEG tube placement since January 2013 * Nothing by mouth on tube feeds (switched from continuous to 12 hour tube feedings) * Follows up with Dr. Narayan MD at [facility], will have patient follow up after discharge for continued care * Pepcid via PEG tube 3. Hypothyroidism * Continue home medication levothyroxine 137 g. * Hold tube feeds an hour before and after the administration of levothyroxine. 4. Anxiety * Continue home dose Xanax 0.25 mg 3 times a day * Melatonin 5 mg at bedtime for insomnia. 5. Pain management * Roxicodone 5 mg every 6 when necessary * Percocet 2 tabs every 6 when necessary * Tylenol for mild pain when necessary 6. DVT prophylaxis * Subcutaneous Lovenox 7. CODE STATUS * Full code 8. Diet * Jevity 1.5 via PEG tube Problem List: 1. Status post insertion of percutaneous endoscopic gastrostomy (PEG) tube 2. Throat cancer 3. COPD with exacerbation Pain Ratin Pain Location: n/a Pain Goal: Remain pain free Pain Plan: per pain pathway Tomorrow's Labs & Rationales: None.
[2016-08-03 11:26] VITALS: BP 138/62
--- NOTE | 2016-08-03 12:59 | PN- Pulmonary ---
Subjective HPI/Critical Care Issues: pt seen and examined overall improving dyspnea however remains and not returned to baseline awaiting dc to [place] coughing with some productive reddish sputum, no overt hemoptysis Objective Current Medications: Current Medications Sig/Kody Start time Last Medication Dose Route Stop Time Status Admin Acetaminophen 1,000 MG .STK-MED ONE 08/03 0242 DC IV 08/03 0243 Acetaminophen 1,000 MG Q6P PRN 07/30 2100 DCD 08/03 N/A 1 UNIT IV 0242 Acetaminophen 325 MG Q6 PRN 07/30 1115 DCD PO Albuterol Sulfate 3 ML EVERY 4 HRS/AWAKE 07/30 1600 DCD 08/03 INH 1203 Albuterol Sulfate 2 PUF 4 TIMES/DAY PRN 07/30 1345 DCD 08/03 INH 0353 Alprazolam 0.25 MG TID 07/30 1600 DCD 08/03 PO 08/06 1559 0828 Azithromycin 500 MG DAILY 07/31 1000 DCD 08/03 Sodium Chloride 250 ML IV 08/03 2000 0846 Budesonide/ 2 PUF BID 07/30 2200 DCD 08/03 Formoterol Fumarate INH 0827 Enoxaparin Sodium 40 MG DAILY 07/30 1107 DCD 08/03 SC 0845 Famotidine 20 MG DAILY 08/03 1000 DC IV Famotidine 20 MG DAILY 08/03 1000 DCD 08/03 PO 0846 Guaifenesin/ 10 ML Q6 08/03 0600 DCD 08/03 Dextromethorphan PO 1205 Guaifenesin/ 10 ML Q6 08/02 1200 DC 08/02 Dextromethorphan PO 1942 Levothyroxine Sodium 0.137 MG 8AM 08/03 0800 DCD 08/03 PO 0825 Melatonin 5 MG AT BEDTIME 07/31 2200 DCD 08/02 PO 2151 Oxycodone HCl 5 MG Q6 PRN 07/30 1115 DCD PO Oxycodone/ 2 TAB Q6 PRN 07/30 1115 DCD Acetaminophen PO Patient Medication 1 ED .STK-MED ONE 08/02 1419 DC Teaching ED 08/02 1420 Prednisone 60 MG DAILY 08/03 1000 DCD 08/03 PO 0828 Sodium Chloride 2 SPRAY Q4 08/03 1000 DCD 08/03 MICHAEL 0845 Sodium Chloride 2 SPRAY Q4P PRN 08/02 1700 DC MICHAEL Tiotropium [place] 1 PUF DAILY 07/31 1000 DCD 08/03 INH 0827 Vital Signs & I&O Last 24 Hrs of Vitals and I&O: Vital Signs Date Time Temp Pulse Resp B/P B/P Pulse O2 O2 Flow FiO2 Mean Ox Delivery Rate 08/03 1126 97.9 92 20 138/62 08/03 0800 94 Nasal 3.0L Cannula 08/03 0733 98 Nasal 3.0L Cannula 08/03 0700 97.9 92 20 138/62 95 Nasal 3.0L Cannula 08/03 0222 97 Nasal 3.0L Cannula 08/03 0000 94 Nasal 3.0L Cannula 08/02 2315 97.7 84 20 119/84 98 Nasal Cannula 08/02 1614 98 Nasal 3.0L Cannula 08/02 1442 97.8 93 18 150/82 97 Nasal 3.0L Cannula Intake & Output 08/03 1600 08/03 0800 08/03 0000 Intake Total 680 325 Output Total 350 Balance 330 325 Intake, Tube 500 225 Feeding Intake, Tube 180 100 Irrigant Number 1 0 Bowel Movements Output, Other Output, Urine 350 Exam Other Physical Findings: gen awake and alert heent ncat cvs s1, s2 lungs bilateral rhonchi and wheezing abd soft bs+ ext without edema Impression/Plan Impression/Plan Impression/Plan: Impression 65 year old woman * hypoxemic respiratory failure, AECOPD Plan -taper steroids as ordered -rehab dc planning -aspiration precautions (has PEG) -TRC/Nebs -o2 as necessary DVT prophylaxis at all times
== END 2016-08-03 12:15 | DRG 189 ==
LOC: ERH 08:53 → 2NB 10:59 → ERHI 10:59 → ENRESERV 11:34 → ENTRNSPT 11:49 → 2NB 12:39 → CMPTRNSPT 12:54 → ENPENDDIS 08-03 09:40 → 2NB 08-03 12:15
PROVIDERS: Emergency Medicine; Student in an Organized Health Care Education/Training Program; ADMIT Hospitalist
DX: J96.21 Acute and chronic respiratory failure with hypoxia (principal); Z99.81 Dependence on supplemental oxygen; J44.0 Chronic obstructive pulmonary disease with (acute) lower respiratory infection; J44.1 Chronic obstructive pulmonary disease with (acute) exacerbation; J20.9 Acute bronchitis, unspecified; E03.9 Hypothyroidism, unspecified; F41.9 Anxiety disorder, unspecified; Z87.891 Personal history of nicotine dependence; Z85.89 Personal history of malignant neoplasm of other organs and systems
CPT/HCPCS: 2NBSP; 87184; 36415; 82436; 87040; 87070; 87071; 87086; 87147; 87449; 87450; 93005; 93010; 96361; 96365; 96375; J0131; J0456; J0696; J1650; J2920; J2930; J3490; J7040

== ENCOUNTER 2017-02-28 19:18 | Inpatient (IN) | payer OTHER, MEDICARE ==
[~2017-02-28] VITALS: Ht 165.1 cm; Wt 68.0 kg
[~2017-02-28 19:18] MED LIST: ALPRAZOLAM0.25 M1 PO; AZITHROMYC100 MG/51 PO; GUAIFENESIN DM S5 ML PO; LEVOTHYROXINE137 MCG G TUBE; PREDNISOLO15 MG/5 M4 PO; PREDNISONE10 M2 PO; PROAIR HFA8.5 GM INH; PROTONIX40 M4 PO; SPIRIVA RESPIMAT4 GM INH; SYMBICORT 16010.2 GM INH
--- NOTE | 2017-02-28 19:25 | ED DYSPNEA/ASTHMA COMPLAINT ---
History of Present Illness General Chief Complaint: Dyspnea (COPD, CHF, Other) Stated Complaint: SOB Source: patient Exam Limitations: no limitations Vital Signs & Intake/Output Vital Signs & Intake/Output Vital Signs Date Time Temp Pulse Resp B/P B/P Pulse O2 O2 Flow FiO2 Mean Ox Delivery Rate 03/01 0146 94 Nasal 3.0L Cannula 03/01 0107 98.1 100 24 120/72 94 Nasal 3.0L Cannula 03/01 0033 Nasal 3.0L Cannula 02/28 2351 94 20 109/63 96 Nasal 2.0L Cannula 02/28 2208 95 20 106/59 95 Nasal 2.0L Cannula 02/28 1926 95 Nasal 4.0L Cannula 02/28 1926 98.2 97 24 137/68 95 Nasal 4.0L Cannula ED Intake and Output 03/01 0000 02/28 1200 Intake Total 0 Output Total Balance 0 Intake, Oral 0 Allergies Coded Allergies: No Known Allergies (07/30/16) Reconcile Medications Albuterol Sulfate (Proair Hfa) 90 MCG HFA.AER.AD 2 PUFF INH PRN COPD ( Reported) Albuterol Sulfate 2.5 MG/3 ML (0.083 %) VIAL.NEB 1 Vial INH/FAM Q6H PRN RESP. (Reported) Alprazolam 0.5 MG TABLET 1 TAB G TUBE TID PRN ANXIETY (Reported) Budesonide/Formoterol Fumarate (Symbicort 160-4.5 Mcg Inhaler) 160 MCG-4.5 MCG/ ACTUATION HFA.AER.AD 2 PUFF INH BID COPD (Reported) Lactose-Reduced Food/Fiber (Jevity 1.5 [place] Liquid) (Unknown Strength) LIQUID ( Unknown Dose) G TUBE AD NUTRITION (Reported) Levothyroxine Sodium 137 MCG TABLET 137 MCG G TUBE DAILY THYROID HEALTH ( Reported) Prednisolone 15 MG/5 ML SOLUTION STEROID TAPER (Reported) Tiotropium [place] (Spiriva Respimat) 2.5 MCG/ACTUATION MIST.INHAL 2 PUFF INH DAILY COPD (Reported) Triage Nurses Notes Reviewed? yes Onset: Gradual Duration: day(s): Timing: recent history Severity: moderate Prior Episodes/Possible Cause: occasional episodes Associated Symptoms: cough, wheezing HPI: 66 YO WOMAM h.o 02 dependent copd, PEG tube due to throat cancer, presents with 1-2 days of worsening dyspnea, cough, wheezing. She notes that she needed to turn her 02 from 2 to 4 lpm. She notes dyspnea at rest w/ difficulty speaking. She notes no fever, chills, dyspnea. She is otherwise well. Past History Medical History Any Pertinent Medical History? 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 MOTHER Hx Contributory? No Review of Systems Review of Systems Constitutional: Reports: no symptoms. EENTM: Reports: no symptoms. Respiratory: Reports: no symptoms. Cardiovascular: Reports: no symptoms. GI: Reports: no symptoms. Genitourinary: Reports: no symptoms. Musculoskeletal: Reports: no symptoms. Skin: Reports: no symptoms. Neurological/Psychological: Reports: no symptoms. Hematologic/Endocrine: Reports: no symptoms. Immunologic/Allergic: Reports: no symptoms. All Other Systems: Reviewed and Negative Physical Exam Physical Exam General Appearance: well developed/nourished, mild distress, moderate distress Head: atraumatic, normal appearance Eyes: Bilateral: normal appearance. Ears, Nose, Throat: normal pharynx, normal ENT inspection Neck: normal inspection, supple, full range of motion Respiratory: decreased breath sounds, accessory muscle use, wheezing, respiratory distress Cardiovascular: regular rate/rhythm Gastrointestinal: normal bowel sounds, soft, non-tender Extremities: normal inspection, normal capillary refill, normal range of motion, no edema Neurologic/Psych: no motor/sensory deficits, awake, alert, oriented x 3 Skin: intact, normal color, warm/dry Core Measures ACS in differential dx? No CVA/TIA Diagnosis No Sepsis Present: No Sepsis Focused Exam Completed? No Progress Differential Diagnosis: asthma, AMI, bronchitis, costochondritis, CHF, COPD, pneumonia Plan of Care: Orders Procedure Date/time Status Tube Feeding 03/01 B Active ARTERIAL BLOOD GAS (GEN) 03/01 0600 Active CBC WITHOUT DIFFERENTIAL 03/01 0600 Active BASIC ELECTROLYTES PLUS BUN&CR 03/01 0600 Active THERAPIST ORDERS 03/01 0125 Complete Vital Signs 03/01 0032 Active Teach/Educate 03/01 003 Active Pain Treatment and Response 03/01 0032 Active Nutritional Intake, Monitor 03/01 0032 Active Isolation 03/01 0032 Active Intake & Output 03/01 0032 Active Patient Care Conference 03/01 0032 Active Activity/Ambulation 03/01 0032 Active Nursing Misc 03/01 UNK Active NUTRITIONAL CONSULT 03/01 UNK Active Pathway - chart 02/28 2225 Active STREP PNEUMO URINARY ANTIGEN 02/28 2224 Active LEGIONELLA URINARY ANTIGEN 02/28 2224 Active LOWER RESPIRATORY CULTURE 02/28 2224 Active TRC EVALUATION (GEN) 02/28 222 Active OXYGEN SETUP (GEN) 02/28 2221 Complete Saline Lock 02/28 2221 Active Pathway - chart 02/28 2221 Active House Staff 02/28 2221 Active Patient Data 02/28 2200 Active Saline Lock 02/28 2156 Active Misc Message 02/28 2156 Active ED Holding Orders 02/28 2156 Active Admit to inpatient 02/28 2156 Active Vital Signs 02/28 2156 Active Code Status 02/28 2156 Active BLOOD CULTURE 02/28 1935 Active RAPID VIRAL INFLUENZA A 02/28 193 Complete BLOOD CULTURE 02/28 1933 Active TROPONIN LEVEL 02/28 1926 Complete LIPASE 02/28 192 Complete HEPATIC FUNCTION PANEL 02/28 192 Complete CBC WITHOUT DIFFERENTIAL 02/28 192 Complete BASIC METABOLIC PANEL 02/28 192 Complete AMYLASE 02/28 192 Complete EKG 02/28 192 Active Intake & Output 02/28 1924 Active VTE Mechanical Prophylaxis 02/28 UNK Active Current Medications Sig/Kody Start time Last Medication Dose Stop Time Status Admin Albuterol Sulfate 2 PUF BID 03/01 1000 AC (Ventolin) Azithromycin 500 MG DAILY 03/01 1000 AC (Zithromax) Sodium Chloride 250 ML (Normal Saline 0.9%) Budesonide/ 2 PUF BID 03/01 1000 AC Formoterol Fumarate (Symbicort) Enoxaparin Sodium 40 MG DAILY 03/01 1000 AC (Lovenox) Levothyroxine Sodium 0.137 MG DAILY 03/01 1000 AC (Synthroid) Tiotropium [place] 1 PUF DAILY 03/01 1000 AC (Spiriva) Methylprednisolone 40 MG Q8 03/01 0600 AC (Solumedrol) Albuterol Sulfate 3 ML Q4H PRN 03/01 0130 AC 03/01 (Proventil) 0125 Alprazolam 0.5 MG TID PRN 02/28 2245 AC 03/01 (Xanax) 03/07 2243 014 Acetaminophen 650 MG Q6P PRN 02/28 223 AC 03/01 (Tylenol) 014 Acetaminophen 1,000 MG Q6P PRN 02/28 223 AC (Ofirmev) Morphine Sulfate 2 MG Q8P PRN 02/28 223 AC (Morphine) Laboratory Tests 02/28/171954: Anion Gap 14, Estimated GFR > 60, BUN/Creatinine Ratio 36.7 H, Glucose 125 H, Calcium 10.0, Total Bilirubin 0.5, Direct Bilirubin 0.3, AST 25, ALT 34, Alkaline Phosphatase 91, Troponin I < 0.01, Total Protein 7.6, Albumin 4.6, Amylase 46, Lipase 127, CBC w Diff NO MAN DIFF REQ, RBC 4.26, MCV 96.6, MCH 32.1 H, RDW 12.6, MPV 10.1, Gran % 90.8 H, Lymphocytes % 7.0 L, Monocytes % 1.5 L , Eosinophils % 0.5, Basophils % 0.2, Absolute Granulocytes 6.8 H, Absolute Lymphocytes 0.5 L, Absolute Monocytes 0.1, Absolute Eosinophils 0, Absolute Basophils 0, PUBS MCHC 33.3 Microbiology 02/28 2223 URINE ROUT: Legionella Antigen - ORD 02/28 2223 URINE ROUT: Streptococcus pneumoniae Antigen (M - ORD 02/28 2223 LOWER RESP: Respiratory Culture - ORD 02/28 2223 LOWER RESP: Gram Stain - ORD 02/28 2039 BLOOD: Blood Culture - RECD 02/28 2027 BLOOD: Blood Culture - RECD 02/29 1944 NASOPHARYN: Influenza Virus A & B Rapid Smear - COMP Diagnostic Imaging: Viewed by Me: Radiology Read. Discussed w/RAD: Radiology Read. CXR Impression: PATIENT: CLOTILDE WRAY PRESENT AGE: 66 PATIENT ACCOUNT NO: [id number] : 50 LOCATION: [facility] ORDERING PHYSICIAN: Josiah Abraham MD SERVICE DATE: 02/28/17 EXAM TYPE: RAD - XRY-PORTABLE CHEST XRAY EXAMINATION: XR PORTABLE CHEST CLINICAL INFORMATION: Dyspnea COMPARISON: Chest x-ray 12/18/2016 TECHNIQUE: Portable frontal view of the chest was obtained. 8:10 PM FINDINGS: Lungs are clear. No pulmonary vascular congestion. There is no pleural effusion. The heart size is normal. The cardiac and mediastinal contours are normal. There are calcifications of the thoracic aorta. There are multilevel degenerative changes of dorsal spine. Right and left clavicles are foreshortened, may be postsurgical. IMPRESSION: Unremarkable examination. DICTATED BY: Victor M Ocasio MD DATE/TIME DICTATED:02/28/172051 TRAINING DEVELOPMENT DIRECTOR:ASTON DATE/TIME TRANSCRIBED:02/28/172051 CONFIDENTIAL, DO NOT COPY WITHOUT APPROPRIATE AUTHORIZATION. <Electronically signed in Other Vendor System> SIGNED BY: Victor M Ocasio MD 02/28/172055 Initial ED EKG: sinus tachycardia Departure Departure Disposition: STILL A PATIENT Condition: Stable Clinical Impression Primary Impression: COPD exacerbation Referrals: Alayna PORTILLO,Armando Garcia (PCP/Family) Departure Forms: Customer Survey General Discharge Information Admission Note Spoke With: Herb PORTILLO,Mary Documentation of Exam: Documentation of any treatments & extenuating circumstances including Concerns Regarding Discharge (functional status, medication knowledge or non-compliance, living conditions, etc.) that warrant an admission rather than observation: pt with brittle copd, with increased 02 requirement (2l -->4l), also failed outpatient steroids... pt merits iv steroids, 02 supplementation, consider pulm consult. Critical Care Note Critical Care Note Critical Care Time: non-applicable
[2017-02-28] MEDS ORDERED: ALPRAZOLAM0.5 M4 G TUBE (19:42)
[2017-02-28] MEDS ORDERED: ALBUTEROL2.5 MG/3 M INH/SOL (19:44)
[2017-02-28] MEDS ORDERED: PREDNISOLO15 MG/5 M4 G TUBE (19:44)
[2017-02-28] MEDS ORDERED: JEVITY 1.5 CAL237 ML G TUBE (19:46)
[2017-02-28 20:09] LABS: ABSOLUTE BASOPHIL COUNT 0 /CUMM (0.0-0.2); ABSOLUTE EOSINOPHIL COUNT 0 /CUMM (0.0-0.7); ABSOLUTE GRANULOCYTE CT 6.8 /CUMM (1.4-6.5); ABSOLUTE LYMPH COUNT 0.5 /CUMM (1.2-3.4); ABSOLUTE MONOCYTE COUNT 0.1 /CUMM (0.10-0.60); BASOPHIL % 0.2 % (0.0-2.0); EOSINOPHIL % 0.5 % (0-5); GRANULOCYTE % 90.8 % (42.2-75.2); HEMATOCRIT 41.1 % (37-47); MEAN CORPUSCULAR HGB 32.1 PG (27.0-31.0); MEAN CORPUSCULAR HGB CONC 33.3 G/DL (33.0-37.0); MEAN CORPUSCULAR VOLUME 96.6 FL (81.0-99.0); MEAN PLATELET VOLUME 10.1 FL (7.4-10.4); PLATELET COUNT 208 /CUMM (130-400); RBC DISTRIBUTION WIDTH 12.6 % (11.5-14.5); RED BLOOD CELL CT 4.26 /CUMM (4.20-5.40); WHITE BLOOD CELL COUNT 7.5 /CUMM (4.8-10.8)
--- NOTE | 2017-02-28 20:56 | RADIOLOGY REPORT ---
EXAMINATION: XR PORTABLE CHEST CLINICAL INFORMATION: Dyspnea COMPARISON: Chest x-ray 12/18/2016 TECHNIQUE: Portable frontal view of the chest was obtained. 8:10 PM FINDINGS: Lungs are clear. No pulmonary vascular congestion. There is no pleural effusion. The heart size is normal. The cardiac and mediastinal contours are normal. There are calcifications of the thoracic aorta. There are multilevel degenerative changes of dorsal spine. Right and left clavicles are foreshortened, may be postsurgical. IMPRESSION: Unremarkable examination.
--- NOTE | 2017-02-28 22:19 | History & Physical ---
[facility] 02/28/17 2215: General Information and HPI MD Statement: I have seen and personally examined CLOTILDE LOYA and documented this H&P. The patient is a 66 year old F who presented with a patient stated chief complaint of [SOB]. Source of Information: patient, old records Exam Limitations: no limitations History of Present Illness: Mrs. Loya is a 66-year-old female with past medical history significant for throat cancer status post chemotherapy and radiation, last chemotherapy in 2013, status post PEG tube on continuous pump for 12 hours at night, hypothyroidism and oxygen dependent COPD (2.5 L at night and 3 L during the day) came in with chief complaint of worsening shortness of breath. Patient symptoms started around tayo time and got worse over the last week, she pumped up her O2 to 4L. She has a sick contact at home, her mother. She also report productive cough of white phlegm with no blood, she can't sleep flate as precaution for a spiration as she is on tube feed. She was treated about 2 weeks ago with prednisone and other medication that she didn't remember the name. Patient denies any chest pain, dizziness and there is no change in urinary or bowel habits. She report some itch around the PEG tube. Allergies/Medications Allergies: Coded Allergies: No Known Allergies (07/30/16) Home Med list Albuterol Sulfate (Proair Hfa) 90 MCG HFA.AER.AD 2 PUFF INH PRN COPD ( Reported) Albuterol Sulfate 2.5 MG/3 ML (0.083 %) VIAL.NEB 1 Vial INH/FAM Q6H PRN RESP. (Reported) Alprazolam 0.5 MG TABLET 1 TAB G TUBE TID PRN ANXIETY (Reported) Budesonide/Formoterol Fumarate (Symbicort 160-4.5 Mcg Inhaler) 160 MCG-4.5 MCG/ ACTUATION HFA.AER.AD 2 PUFF INH BID COPD (Reported) Lactose-Reduced Food/Fiber (Jevity 1.5 Calos Liquid) (Unknown Strength) LIQUID ( Unknown Dose) G TUBE AD NUTRITION (Reported) Levothyroxine Sodium 137 MCG TABLET 137 MCG G TUBE DAILY THYROID HEALTH ( Reported) Prednisolone 15 MG/5 ML SOLUTION STEROID TAPER (Reported) Tiotropium [place] (Spiriva Respimat) 2.5 MCG/ACTUATION MIST.INHAL 2 PUFF INH DAILY COPD (Reported) Past History Travel History Traveled to [place] past 21 day No Medical History Neurological: NONE EENT: NONE Cardiovascular: NONE Respiratory: COPD Gastrointestinal: PEG TUBE Hepatic: NONE Renal: NONE Musculoskeletal: BILATERAL ROTATOR CUFF REPAIR, JAW REPAIR S/P FRACTURE, CARPAL TUNNEL SURGERY Psychiatric: anxiety Endocrine: hypothyroidism Blood Disorders: NONE 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 MOTHER Psychosocial History Who Do You Live With? parent Services at Home: None Primary Language: Ecuadorean Living Will? no Functional Ability ADLs Independent: dressing, eating, toileting, bathing. Ambulation: independent IADLs Independent: shopping, housework, finances, food prep, telephone, transportation , medication admin. Review of Systems Review of Systems Constitutional: Reports: no symptoms. EENTM: Reports: no symptoms. Cardiovascular: Reports: no symptoms. Respiratory: Reports: cough, short of breath, sputum production, wheezing. GI: Reports: no symptoms. Genitourinary: Reports: no symptoms. Musculoskeletal: Reports: no symptoms. Exam & Diagnostic Data Last 24 Hrs of Vital Signs/I&O Vital Signs Date Time Temp Pulse Resp B/P B/P Pulse O2 O2 Flow FiO2 Mean Ox Delivery Rate 03/01 0146 94 Nasal 3.0L Cannula 03/01 106 98.1 100 24 120/72 94 Nasal 3.0L Cannula 03/01 0100 20 03/01 0033 Nasal 3.0L Cannula 03/01 0016 94 Nasal 3.0L Cannula 02/28 2351 94 20 109/63 96 Nasal 2.0L Cannula 02/28 2208 95 20 106/59 95 Nasal 2.0L Cannula 02/28 1926 95 Nasal 4.0L Cannula 02/28 1926 98.2 97 24 137/68 95 Nasal 4.0L Cannula Intake & Output 03/01 0800 03/01 0000 02/28 1600 Intake Total 0 Output Total Balance 0 Intake, Oral 0 Patient 149 lb Weight Assessment/Plan Assessment: Mrs. Loya is a 66-year-old female with past medical history significant for throat cancer status post chemotherapy and radiation, last chemotherapy in 2013, status post PEG tube on continuous pump for 12 hours at night, hypothyroidism and oxygen dependent COPD (2.5 L at night and 3 L during the day) came in with chief complaint of worsening shortness of breath admitted for COPD exacerbation. Assessment: #Respiratory failure 2/2 COPD exacerbation #Hx. of throate cancer on tube feed Plan: -Will admit the patient to general medicine floor -Will continue IV solu-medrol -Will continue azithromycin -Pulmonology consult at am -TRC/ nebs -F/U cultures -Tube feed DVT ppx: SC Lovenox Full code As Ranked By This Provider Problem List: 1. COPD with exacerbation 2. Throat cancer 3. Status post insertion of percutaneous endoscopic gastrostomy (PEG) tube Core Measures/Misc (11/03) Acute Coronary Syndrome ACS Diagnosis: No Congestive Heart Failure Congestive Heart Failure Diagnosis No Cerebrovascular Accident CVA/TIA Diagnosis: No VTE (View Protocol) VTE Risk Factors Age>40 No Mechanical VTE Prophylaxis d/t N/A MechProphylax Ordered No VTE Pharm Prophylaxis d/t NA PharmProphylax ordered Sepsis (View protocol) Sepsis Present: No Herb PORTILLO, [facility] 03/01/17 0003: Attending MD Review Statement Attending Statement Attending MD Statement: examined this patient, discuss w/resident/PA/PROCESS ARTIST, agreed w/resident/PA/PROCESS ARTIST, reviewed images, amended to note Attending Assessment/Plan: 66 yo F with h/o O2 dependent COPD (2L at rest, 3L on exertion), lung nodule, throat cancer s/p radiation and chemotherapy (Mar 2013), s/p PEG tube, hypothyroidism, last admitted for COPDE (Dec 2016), follows Dr. Franklin, is here for 2-day h/o worsening dyspnea especially on exertion now even at rest, pleuritic chest pain, cough productive of thick white phlegm and wheezing. Patient states she has not been feeling well since around Tayo time. She had [facility] but no treatment was given. She saw her PCP who prescribed her prednisolone taper and Cefprozil for bronchitis/ COPD. Transiently she felt better but symptoms recurred. She had to increase her O2 to 4 L over the past few days. Reports feeling 'hot and cold' but did not check her temperative. Sick contact mother+. Patient has received flu and pneumonia vaccines. Follows Dr. Busch at [facility]. Vitals: afebrile, HR 90's, BP 137/68, sats 95% on 4L. Exam: AAO, in mild respiratory distress but able tos peak in full sentences, reports feeling better after receiving treatment in ER. Neck supple, MMM, Chest b/l reduced air entry and diffuse expiratory wheezes, not using accessory muscles of respiration, Heart S1S2 regular, Abd soft, NT, PEG site C/D/I, LE: no edema. Labs: no leukocytosis or bandemia, bicarb 32, BUN 22, trop neg. CXR: no pneumonia or vascular congestion. EKG: Sinus tachycardia, PVC's, RAA, Qtc 472. Flu swab negative. In the ER, patient received solumedrol, ceftriaxone and azithro. Assessment and plan: 1. Acute on chronic hypoxic respiratory failure 2. COPD exacerbation 3. Chronic hypercarbia 4. H/o throat cancer s/p PEG 5. Lung nodule - 4 mm left upper lobe lung nodule for which she needs a repeat CT this month (Feb 2017) - Admit to general medicine - TRC nebs - Sputum culture - IV solumedrol 40mg Q8 - Azithro for 5 days - Pulm consult (Dr. Franklin) - Check baseline ABG - Consider repeat CT chest to assess lung nodule -?inpatient vs outpatient - NPO, all medications and Jevity tube feeds through PEG - Nutrition consult - Continue symbicort, hold spiriva while inpatient DVT ppx Lovenox. Full code.
--- NOTE | 2017-03-01 00:49 | Admission Certification ---
Admission Certification Certification Statement - As attending physician, I certify that at the time of - admission, based on clinical presentation, severity of - symptoms, need for further diagnostic testing and - therapeutic interventions, and risk of adverse outcomes - without in-hospital treatment, in my clinical assessment, - this patient requires an acute hospital stay for a minimum - of two nights or longer. I have also considered psychsocial - factors such as support system, advanced age, financial - issues, cognitive issues, and failed out-patient treatments, - past re-admission history, safety of patient, and lack of - compliance as applicable. Specific rationale supporting this admission is: Acute on chronic hypoxic respiratory failure, COPD exacerbation.
[2017-03-01 01:07] VITALS: BP 120/72
[2017-03-01 06:59] VITALS: BP 118/68
--- NOTE | 2017-03-01 07:24 | PN- Housestaff ---
Aretha,Af 03/01/17 0723: Subjective Follow-up For: -COPD exacerbation Subjective: Patient is seen and examined, she was setting on her bed with moderate distress, she was waiting for the respiratory therapiest to get her treatment. She asked for incentive spirometry to loosen the sputum. She couldn't sleep at night because of the phlegm Review of Systems Constitutional: Reports: no symptoms. Objective Last 24 Hrs of Vital Signs/I&O Vital Signs Date Time Temp Pulse Resp B/P B/P Pulse O2 O2 Flow FiO2 Mean Ox Delivery Rate 03/01 0839 95 Nasal 3.0L Cannula 03/01 0659 97.9 80 24 118/68 96 Nasal 3.0L Cannula 03/01 0146 94 Nasal 3.0L Cannula 03/01 0107 98.1 100 24 120/72 94 Nasal 3.0L Cannula 03/01 0100 20 03/01 0033 Nasal 3.0L Cannula 03/01 0016 94 Nasal 3.0L Cannula 02/28 2351 94 20 109/63 96 Nasal 2.0L Cannula 02/28 2208 95 20 106/59 95 Nasal 2.0L Cannula 02/28 1927 95 Nasal 4.0L Cannula 02/28 192 98.2 97 24 137/68 95 Nasal 4.0L Cannula Intake & Output 03/01 1600 03/01 0800 03/01 0000 Intake Total 885 0 Output Total 350 Balance 535 0 Intake, Oral 0 0 Intake, Tube 360 Feeding Intake, Tube 525 Irrigant Output, Urine 350 Patient 150 lb Weight Physical Exam General Appearance: Alert Current Medications: Current Medications Sig/Kody Start time Last Medication Dose Route Stop Time Status Admin Acetaminophen 650 MG .STK-MED ONE 03/01 0139 DC PO 03/01 0140 Acetaminophen 650 MG Q6P PRN 02/28 2230 AC 03/01 PO 0147 Acetaminophen 1,000 MG Q6P PRN 02/28 2230 AC 03/01 IV 0815 Acetaminophen 1,000 MG ONCE ONE 02/28 2014 DC 02/28 N/A 1 UNIT IV 02/28 Acetaminophen 0 .STK-MED ONE 02/29 2012 DC IV Albuterol Sulfate 3 ML EVERY 4 HRS/AWAKE 03/01 1200 AC 03/01 INH 0838 Albuterol Sulfate 2 PUF BID 03/01 1000 AC 03/01 INH 0954 Albuterol Sulfate 3 ML Q4H PRN 03/01 0130 AC 03/01 INH 0125 Albuterol Sulfate 3 ML ONCE ONE 02/28 194 DC 02/28 INH 02/28 Alprazolam 0.5 MG TID PRN 02/28 2245 AC 03/01 PO 03/07 2244 0956 Azithromycin 500 MG DAILY 03/01 1000 AC 03/01 Sodium Chloride 250 ML IV 0955 Azithromycin 500 MG ONCE ONE 02/28 194 DC 02/28 Sodium Chloride 250 ML IV 02/284 2048 Budesonide/ 2 PUF BID 03/01 1000 AC 03/01 Formoterol Fumarate INH 0951 Ceftriaxone Sodium 0 .STK-MED ONE 02/28 2009 DC .ROUTE Ceftriaxone Sodium 1,000 MG ONCE ONE 02/29 1944 DC 02/28 IV 02/28 Enoxaparin Sodium 40 MG DAILY 03/01 1000 AC 03/01 SC 0951 Guaifenesin 600 MG Q12 03/01 1000 AC 03/01 PO 0950 Ipratropium [place] 2.5 ML ONCE ONE 02/28 194 DC 02/28 INH 02/28 Levothyroxine Sodium 0.137 MG DAILY 03/01 1000 AC 03/01 PO 0950 Methylprednisolone 40 MG Q12 03/01 1000 DC IV Methylprednisolone 40 MG Q8 03/01 0600 AC 03/01 IV 0558 Methylprednisolone 0 .STK-MED ONE 02/29 2008 DC .ROUTE Methylprednisolone 125 MG ONCE ONE 02/29 1944 DC 02/28 IV 02/28 Morphine Sulfate 2 MG Q8P PRN 02/28 2230 AC IV Tiotropium [place] 1 PUF DAILY 03/01 1000 AC 03/01 INH 0951 Last 24 Hrs of Lab/Bossman Results Last 24 Hrs of Labs/Mics: Laboratory Tests 03/01/17 0800: Anion Gap 14, Estimated GFR > 60, BUN/Creatinine Ratio 38.3 H, CBC w Diff Pending, WBC Pending, RBC Pending, Hgb Pending, Hct Pending, MCV Pending, MCH Pending, RDW Pending, Plt Count Pending, MPV Pending, PUBS MCHC Pending 02/28/171954: Anion Gap 14, Estimated GFR > 60, BUN/Creatinine Ratio 36.7 H, Glucose 125 H, Calcium 10.0, Total Bilirubin 0.5, Direct Bilirubin 0.3, AST 25, ALT 34, Alkaline Phosphatase 91, Troponin I < 0.01, Total Protein 7.6, Albumin 4.6, Amylase 46, Lipase 127, CBC w Diff NO MAN DIFF REQ, RBC 4.26, MCV 96.6, MCH 32.1 H, RDW 12.6, MPV 10.1, Gran % 90.8 H, Lymphocytes % 7.0 L, Monocytes % 1.5 L , Eosinophils % 0.5, Basophils % 0.2, Absolute Granulocytes 6.8 H, Absolute Lymphocytes 0.5 L, Absolute Monocytes 0.1, Absolute Eosinophils 0, Absolute Basophils 0, PUBS MCHC 33.3 Microbiology 03/01 329 URINE ROUT: Legionella Antigen - COMP 03/01 329 URINE ROUT: Streptococcus pneumoniae Antigen (M - COMP 02/28 2223 LOWER RESP: Respiratory Culture - COLB 02/28 2223 LOWER RESP: Gram Stain - COLB 02/28 2039 BLOOD: Blood Culture - RECD 02/28 2027 BLOOD: Blood Culture - RECD 02/29 1944 NASOPHARYN: Influenza Virus A & B Rapid Smear - COMP Assessment/Plan Problem List: 1. COPD with exacerbation Pain Ratin Pain Location: - Pain Goal: Remain pain free (-) Pain Plan: - Tomorrow's Labs & Rationales: - Ottoniel PORTILLO,Den 03/01/17 1144: Objective Last 24 Hrs of Vital Signs/I&O Vital Signs Date Time Temp Pulse Resp B/P B/P Pulse O2 O2 Flow FiO2 Mean Ox Delivery Rate 03/04 0720 97.4 96 20 136/70 95 Nasal 3.0L Cannula 03/04 0411 94 Nasal 3.0L Cannula 03/03 2159 97.5 95 20 124/80 97 Nasal 3.0L Cannula 03/03 1923 96 Nasal 5.0L Cannula 03/03 1610 93 Nasal 3.0L Cannula 03/03 1600 94 Nasal 3.0L Cannula 03/03 1439 97.6 88 20 120/72 98 03/03 0820 98 Nasal 3.0L Cannula Intake & Output 03/04 0800 03/04 0000 03/03 1600 Intake Total 690 140 Output Total 600 400 Balance 90 -260 Intake, IV 10 100 Intake, Tube 480 Feeding Intake, Tube 200 40 Irrigant Output, Urine 600 400 Assessment/Plan Assessment: 66-year-old female with past medical history significant for throat cancer status post chemotherapy and radiation, last chemotherapy in 2013, status post PEG tube on continuous pump for 12 hours at night, hypothyroidism and oxygen dependent (2.5L at night and 3 during the day) COPD came in with chief complaint of worsening shortness of breath and chills with productive cough for last few days. COPD Exacerbation: -Supplemental oxygen to maintain saturation above 90%. -IV Solu-Medrol 40 mg every 8 hourly. -Ceftin 250 mg twice a day. -TRC nebulization as needed -Mucomyst nebulization as patient having difficulty in bringing sputum and chest congestion. -Chest physiotherapy -incentive spirometry History of hypothyroidism: -We will continue levothyroxine DVT prophylaxis: Mechanical and Lovenox CODE STATUS: Full code Attending MD Review Statement Attending Statement Attending MD Statement: examined this patient, discuss w/resident/PA/LEAD INGOT MOLDER, agreed w/resident/PA/LEAD INGOT MOLDER, reviewed EMR data (avail), discussed with nursing, discussed with case mgmt, amended to note Attending Assessment/Plan: Patient seen and examined. Lying in bed. Complains of cough with difficulty expectorating. Complains of shortness of breath with exertion. Denies chest pain. Currently maintaining saturation on 3 L of oxygen. On examination she has fair entry bilateral with diffuse rhonchi. Heart sounds are regular. Abdomen soft and nontender. PEG tube is in place. She has no peripheral edema. Recommendations: -Continue bronchodilator therapy and systemic steroid therapy at current dose. -Change azithromycin to oral route. -Mobilize patient as tolerated. -Discontinue IV morphine and avoid excessive use of opioids. Pain control with Tylenol may utilize tramadol for breakthrough pain. -Continue Xanax for anxiety.
[2017-03-01 09:52] LABS: ABSOLUTE BASOPHIL COUNT 0 /CUMM (0.0-0.2); ABSOLUTE EOSINOPHIL COUNT 0 /CUMM (0.0-0.7); ABSOLUTE GRANULOCYTE CT 6.3 /CUMM (1.4-6.5); ABSOLUTE LYMPH COUNT 0.3 /CUMM (1.2-3.4); ABSOLUTE MONOCYTE COUNT 0.2 /CUMM (0.10-0.60); BASOPHIL % 0 % (0.0-2.0); EOSINOPHIL % 0 % (0-5); GRANULOCYTE % 92.8 % (42.2-75.2); HEMATOCRIT 37.2 % (37-47); MEAN CORPUSCULAR HGB 32.5 PG (27.0-31.0); MEAN CORPUSCULAR HGB CONC 33.7 G/DL (33.0-37.0); MEAN CORPUSCULAR VOLUME 96.7 FL (81.0-99.0); MEAN PLATELET VOLUME 10.9 FL (7.4-10.4); PLATELET COUNT 190 /CUMM (130-400); RBC DISTRIBUTION WIDTH 12.8 % (11.5-14.5); RED BLOOD CELL CT 3.85 /CUMM (4.20-5.40); WHITE BLOOD CELL COUNT 6.8 /CUMM (4.8-10.8)
--- NOTE | 2017-03-01 14:00 | Cons- Pulmonary ---
General Information and HPI Consulting Request Date of Consult: 03/01/17 Requested By: Med team History of Present Illness: Mrs. Loya is a 66-year-old female with past medical history significant for throat cancer status post chemotherapy and radiation, last chemotherapy in 2013, status post PEG tube on continuous pump for 12 hours at night, hypothyroidism and oxygen dependent COPD (2.5 L at night and 3 L during the day) came in with chief complaint of worsening shortness of breath. Patient symptoms started around jerod time and got worse over the last week, she pumped up her O2 to 4L. She has a sick contact at home, her mother. She also report productive cough of white phlegm with no blood, she can't sleep flate as precaution for a spiration as she is on tube feed. She was treated about 2 weeks ago with prednisone Patient denies any chest pain, dizziness and there is no change in urinary or bowel habits. She report some itch around the PEG tube. Review of Systems Constitutional: Reports: no symptoms. EENTM: Reports: no symptoms. Cardiovascular: Reports: no symptoms. Respiratory: Reports: cough, short of breath, sputum production, wheezing. GI: Reports: no symptoms. Genitourinary: Reports: no symptoms. Musculoskeletal: Reports: no symptoms. Allergies/Medications Allergies: Coded Allergies: No Known Allergies (07/30/16) Home Med List: Albuterol Sulfate (Proair Hfa) 90 MCG HFA.AER.AD 2 PUFF INH PRN COPD ( Reported) Albuterol Sulfate 2.5 MG/3 ML (0.083 %) VIAL.NEB 1 Vial INH/FAM Q6H PRN RESP. (Reported) Alprazolam 0.5 MG TABLET 1 TAB G TUBE TID PRN ANXIETY (Reported) Budesonide/Formoterol Fumarate (Symbicort 160-4.5 Mcg Inhaler) 160 MCG-4.5 MCG/ ACTUATION HFA.AER.AD 2 PUFF INH BID COPD (Reported) Lactose-Reduced Food/Fiber (Jevity 1.5 Calos Liquid) (Unknown Strength) LIQUID ( Unknown Dose) G TUBE AD NUTRITION (Reported) Levothyroxine Sodium 137 MCG TABLET 137 MCG G TUBE DAILY THYROID HEALTH ( Reported) Prednisolone 15 MG/5 ML SOLUTION STEROID TAPER (Reported) Tiotropium [place] (Spiriva Respimat) 2.5 MCG/ACTUATION MIST.INHAL 2 PUFF INH DAILY COPD (Reported) Past History Travel History Traveled to [place] past 21 day No Medical History Blood Transfusion Hx: Yes Neurological: NONE EENT: NONE Cardiovascular: NONE Respiratory: COPD Gastrointestinal: PEG TUBE Hepatic: NONE Renal: NONE Musculoskeletal: BILATERAL ROTATOR CUFF REPAIR, JAW REPAIR S/P FRACTURE, CARPAL TUNNEL SURGERY Psychiatric: anxiety Endocrine: hypothyroidism Blood Disorders: NONE 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 MOTHER Psychosocial History Where Do You Live? Home Who Do You Live With? parent Services at Home: None Primary Language: Estonian Smoking Status: Former Smoker Living Will? no Functional Ability ADLs Independent: dressing, eating, toileting, bathing. Ambulation: independent IADLs Independent: shopping, housework, finances, food prep, telephone, transportation , medication admin. Exam & Diagnostic Data Last 24 Hrs of Vital Signs/I&O Vital Signs Date Time Temp Pulse Resp B/P B/P Pulse O2 O2 Flow FiO2 Mean Ox Delivery Rate 03/01 0900 Nasal 3.0L Cannula 03/01 0839 95 Nasal 3.0L Cannula 03/01 0800 95 Nasal 3.0L Cannula 03/01 0659 97.9 80 24 118/68 96 Nasal 3.0L Cannula 03/01 0146 94 Nasal 3.0L Cannula 03/01 0107 98.1 100 24 120/72 94 Nasal 3.0L Cannula 03/01 0100 20 03/01 0033 Nasal 3.0L Cannula 03/01 0016 94 Nasal 3.0L Cannula 02/28 2351 94 20 109/63 96 Nasal 2.0L Cannula 02/28 2208 95 20 106/59 95 Nasal 2.0L Cannula 02/28 1927 95 Nasal 4.0L Cannula 02/28 192 98.2 97 24 137/68 95 Nasal 4.0L Cannula Intake & Output 03/01 1600 03/01 0800 03/01 0000 Intake Total 885 0 Output Total 350 Balance 535 0 Intake, Oral 0 0 Intake, Tube 360 Feeding Intake, Tube 525 Irrigant Output, Urine 350 Patient 150 lb Weight Last 48 Hrs of Labs/Bossman: Laboratory Tests 03/01/17 0800: Anion Gap 14, Estimated GFR > 60, BUN/Creatinine Ratio 38.3 H, CBC w Diff NO MAN DIFF REQ, RBC 3.85 L, MCV 96.7, MCH 32.5 H, RDW 12.8, MPV 10.9 H, Gran % 92.8 H, Lymphocytes % 3.8 L, Monocytes % 3.4, Eosinophils % 0, Basophils % 0, Absolute Granulocytes 6.3, Absolute Lymphocytes 0.3 L, Absolute Monocytes 0.2, Absolute Eosinophils 0, Absolute Basophils 0, PUBS MCHC 33.7 02/28/171954: Anion Gap 14, Estimated GFR > 60, BUN/Creatinine Ratio 36.7 H, Glucose 125 H, Calcium 10.0, Total Bilirubin 0.5, Direct Bilirubin 0.3, AST 25, ALT 34, Alkaline Phosphatase 91, Troponin I < 0.01, Total Protein 7.6, Albumin 4.6, Amylase 46, Lipase 127, CBC w Diff NO MAN DIFF REQ, RBC 4.26, MCV 96.6, MCH 32.1 H, RDW 12.6, MPV 10.1, Gran % 90.8 H, Lymphocytes % 7.0 L, Monocytes % 1.5 L , Eosinophils % 0.5, Basophils % 0.2, Absolute Granulocytes 6.8 H, Absolute Lymphocytes 0.5 L, Absolute Monocytes 0.1, Absolute Eosinophils 0, Absolute Basophils 0, PUBS MCHC 33.3 Microbiology 03/01 329 URINE ROUT: Legionella Antigen - COMP 03/01 329 URINE ROUT: Streptococcus pneumoniae Antigen (M - COMP 02/29 1944 NASOPHARYN: Influenza Virus A & B Rapid Smear - COMP Assessment/Plan Impression/Plan: Physical Exam General Appearance: Alert, Oriented X3, Cooperative, No Acute Distress HEENT: Atraumatic, PERRLA, EOMI, Mucous Membr. moist/pink Neck: Supple, No JVD, No thryomegaly, No LAD Cardiovascular: Normal S1, Normal S2, No Murmurs Lungs: mild bilateral wheezes Abdomen: Normal Bowel Sounds, Soft, No Tenderness, has a PEG tube in place Neurological: Normal Speech, Strength at 5/5 X4 Ext, Normal Tone, Sensation Intact, Cranial Nerves 3-12 NL, Reflexes 2+ Extremities: No Edema, Normal Pulses CXR unremarkable IMPRESSION 66-year-old female with past medical history significant for throat cancer status post chemotherapy and radiation, last chemotherapy in 2013, status post PEG tube on continuous pump for 12 hours at night, hypothyroidism and oxygen dependent COPD came in with chief complaint of worsening shortness of breath and chills with productive cough for last few days ISSUES ACOPDE Chronic resp insuff with hypercarbia History of throat ca s/p peg with prob on and off asp of her saliva Lung nodule [address] in few months REC IV steroids and nebs IV ceftriaxone COnt inhalers Keep hob up Periodex oral care tid Cont other meds and peg feeding Reduce steroids to 80 mg total and down to 60 soon Will follow Discussed with the family at the bedside Consult Acknowledgment - Thank you for your consult request.
[2017-03-01 22:33] VITALS: BP 120/60
[2017-03-02 07:09] VITALS: BP 120/62
--- NOTE | 2017-03-02 08:26 | PN- Att Addend ---
Attending Addendum Attending Brief Note Patient seen and examined. Resting comfortably and not in acute distress. Reports feeling slightly better. She is still short of breath with minimal exertion. She is maintaining saturation on her baseline oxygen supplementation. Vital Signs Date Time Temp Pulse Resp B/P B/P Pulse O2 O2 Flow FiO2 Mean Ox Delivery Rate 03/02 0709 98.3 84 22 120/62 95 Nasal 3.0L Cannula 03/02 0000 Nasal 3.0L Cannula 03/01 2233 97.8 95 24 120/60 95 Nasal 3.0L Cannula 03/01 1630 98.1 03/01 1610 97 Nasal 3.0L Cannula 03/01 1600 95 Nasal 3.0L Cannula 03/01 1600 95 Nasal 3.0L Cannula 03/01 0900 Nasal 3.0L Cannula 03/01 0839 95 Nasal 3.0L Cannula Gen. appearance: Not in acute respiratory distress Heart: S1-S2 regular Lungs: Improved air entry bilaterally but still with bilateral expiratory rhonchi and wheeze. Abdomen: Soft, nontender with normal bowel sounds. PEG tube in place. Ext: No pedal edema Skin: Intact Problems: 1. COPD exacerbation. Plan: -Currently clinically stable. Continue bronchodilator therapy. -Continue systemic steroid therapy. Taper as recommended by the pulmonology service. -She is afebrile. She has no leukocytosis on admission labs. Chest x-ray shows no infiltrate. Blood cultures are negative. Urine strep antigen is negative. Patient has been started on IV ceftriaxone as recommended by the pulmonology service. Follow-up regarding antibiotic duration. -Mobilize patient as tolerated. -Pain is controlled on the current regimen. -Follow-up serum bicarbonate level today. -No need for repeating serum chemistry or CBC tomorrow unless there is a clinical indication.
[2017-03-02 09:40] LABS: ABSOLUTE BASOPHIL COUNT 0 /CUMM (0.0-0.2); ABSOLUTE EOSINOPHIL COUNT 0 /CUMM (0.0-0.7); ABSOLUTE GRANULOCYTE CT 11.5 /CUMM (1.4-6.5); ABSOLUTE LYMPH COUNT 0.5 /CUMM (1.2-3.4); ABSOLUTE MONOCYTE COUNT 1.1 /CUMM (0.10-0.60); BASOPHIL % 0.2 % (0.0-2.0); EOSINOPHIL % 0 % (0-5); GRANULOCYTE % 87.4 % (42.2-75.2); HEMATOCRIT 36.5 % (37-47); MEAN CORPUSCULAR HGB 32.5 PG (27.0-31.0); MEAN CORPUSCULAR HGB CONC 33.3 G/DL (33.0-37.0); MEAN CORPUSCULAR VOLUME 97.8 FL (81.0-99.0); MEAN PLATELET VOLUME 10.8 FL (7.4-10.4); PLATELET COUNT 193 /CUMM (130-400); RBC DISTRIBUTION WIDTH 12.5 % (11.5-14.5); RED BLOOD CELL CT 3.73 /CUMM (4.20-5.40)
[2017-03-02 10:07] LABS: WHITE BLOOD CELL COUNT 13.2 /CUMM (4.8-10.8)
--- NOTE | 2017-03-02 13:20 | PN- Pulmonary ---
Subjective HPI/Critical Care Issues: Patient seen and examined. Resting comfortably and not in acute distress. Reports feeling slightly better. She is still short of breath with minimal exertion. She is maintaining saturation on her baseline oxygen supplementation. Objective Current Medications: Current Medications Sig/Kody Start time Last Medication Dose Route Stop Time Status Admin Acetaminophen 650 MG Q6P PRN 02/28 2230 AC 03/01 PO 0147 Acetaminophen 1,000 MG Q6P PRN 02/28 2230 AC 03/01 IV 1452 Albuterol Sulfate 3 ML EVERY 4 HRS/AWAKE 03/01 1200 AC 03/02 INH 1211 Albuterol Sulfate 2 PUF BID 03/01 1000 DC 03/01 INH 2152 Albuterol Sulfate 3 ML Q4H PRN 03/01 0130 AC 03/01 INH 0125 Alprazolam 0.5 MG TID PRN 02/28 2245 AC 03/01 PO 03/07 2244 2237 Azithromycin 500 MG DAILY 03/01 1000 AC 03/02 Sodium Chloride 250 ML IV 0939 Budesonide/ 2 PUF BID 03/01 1000 AC 03/02 Formoterol Fumarate INH 0937 Ceftriaxone Sodium 1,000 MG DAILY@1900 03/01 1900 AC 03/01 IV 1956 Chlorhexidine 15 ML TID 03/01 1742 AC 03/02 Gluconate PO 0938 Enoxaparin Sodium 40 MG DAILY 03/01 1000 AC 03/02 SC 0940 Guaifenesin 600 MG Q12 03/01 1000 AC 03/02 PO 0940 Levothyroxine Sodium 0.137 MG DAILY 03/01 1000 AC 03/02 PO 0939 Methylprednisolone 40 MG Q12 03/01 2200 AC 03/02 IV 0940 Methylprednisolone 40 MG Q8 03/01 0600 DC 03/01 IV 1452 Morphine Sulfate 2 MG ONCE ONE 03/01 2315 CAN IV 03/01 2316 Morphine Sulfate 2 MG Q8P PRN 02/28 2230 DC 03/01 IV 1708 Tiotropium [place] 1 PUF DAILY 03/01 1000 AC 03/02 INH 0936 Tramadol HCl 50 MG Q8P PRN 03/01 1800 AC 03/01 PO 2237 Vital Signs & I&O Last 24 Hrs of Vitals and I&O: Vital Signs Date Time Temp Pulse Resp B/P B/P Pulse O2 O2 Flow FiO2 Mean Ox Delivery Rate 03/02 0824 98 Nasal 3.0L Cannula 03/02 0709 98.3 84 22 120/62 95 Nasal 3.0L Cannula 03/02 0000 Nasal 3.0L Cannula 03/01 2233 97.8 95 24 120/60 95 Nasal 3.0L Cannula 03/01 1630 98.1 03/01 1610 97 Nasal 3.0L Cannula 03/01 1600 95 Nasal 3.0L Cannula 03/01 1600 95 Nasal 3.0L Cannula Intake & Output 03/02 1600 03/02 0800 03/02 0000 Intake Total 1310 720 Output Total 400 450 Balance 910 270 Intake, 960 720 TPN/PPN Intake, Tube 350 Irrigant Output, Urine 400 450 Impression/Plan Impression/Plan Impression/Plan: Physical Exam General Appearance: Alert, Oriented X3, Cooperative, No Acute Distress HEENT: Atraumatic, PERRLA, EOMI, Mucous Membr. moist/pink Neck: Supple, No JVD, No thryomegaly, No LAD Cardiovascular: Normal S1, Normal S2, No Murmurs Lungs: mild bilateral wheezes Abdomen: Normal Bowel Sounds, Soft, No Tenderness, has a PEG tube in place Neurological: Normal Speech, Strength at 5/5 X4 Ext, Normal Tone, Sensation Intact, Cranial Nerves 3-12 NL, Reflexes 2+ Extremities: No Edema, Normal Pulses CXR unremarkable IMPRESSION 66-year-old female with past medical history significant for throat cancer status post chemotherapy and radiation, last chemotherapy in 2013, status post PEG tube on continuous pump for 12 hours at night, hypothyroidism and oxygen dependent COPD came in with chief complaint of worsening shortness of breath and chills with productive cough for last few days ISSUES ACOPDE Chronic resp insuff with hypercarbia History of throat ca s/p peg with prob on and off asp of her saliva Lung nodule [address] in few months REC IV steroids and nebs today and change to po in am IV ceftriaxone to be changed to po ceftin in am COnt inhalers Keep hob up Periodex oral care tid Cont other meds and peg feeding Reduce steroids to 60 soon Will follow
[2017-03-02 14:29] VITALS: BP 110/58
[2017-03-02 22:38] VITALS: BP 144/74
[2017-03-03 07:00] VITALS: BP 104/60
--- NOTE | 2017-03-03 07:41 | PN- Housestaff ---
[facility] 03[facility] 0740: Subjective Follow-up For: COPD exacerbation Subjective: No overnight events. Patient remained afebrile overnight. Seen and examined this morning. She denied any chest pain, nausea, vomiting, chills, fever, abdominal pain dysuria. Patient is on 3 L of oxygen and maintaining saturation 96%. Patient complaining of chest tightness and exertional dyspnea. Patient also reported having cough but not able to bring any phlegm. Review of Systems Constitutional: Reports: no symptoms. EENTM: Reports: no symptoms. Cardiovascular: Reports: no symptoms. Respiratory: Reports: cough, short of breath. Gastrointestinal: Reports: no symptoms. Genitourinary: Reports: no symptoms. Musculoskeletal: Reports: no symptoms. Neurological/Psychological: Reports: no symptoms. Objective Last 24 Hrs of Vital Signs/I&O Vital Signs Date Time Temp Pulse Resp B/P B/P Pulse O2 O2 Flow FiO2 Mean Ox Delivery Rate 03/03 0820 98 Nasal 3.0L Cannula 03/03 0700 97.4 84 24 104/60 96 Nasal 3.0L Cannula 03/03 0000 Nasal 3.0L Cannula 03/02 2238 98.0 112 28 144/74 95 Nasal 3.0L Cannula 03/02 1645 97 Nasal 3.0L Cannula 03/02 1600 Nasal 3.0L Cannula 03/02 1429 97.6 87 24 110/58 94 Nasal 3.0L Cannula Intake & Output 03/03 1600 03/03 0800 03/03 0000 Intake Total 1360 600 Output Total 600 200 Balance 760 400 Intake, IV Intake, 960 TPN/PPN Intake, Tube 600 Feeding Intake, Tube 400 Irrigant Output, Urine 600 200 Physical Exam General Appearance: Alert, Oriented X3, Cooperative, No Acute Distress Skin Temp/Moisture Exam: Warm/Dry HEENT: Atraumatic, PERRLA, EOMI Neck: Supple Cardiovascular: Normal S1, Normal S2 Lungs: b/l wheezing Abdomen: Soft, No Tenderness, PEG tube Neurological: Normal Speech, Strength at 5/5 X4 Ext, Normal Tone, Sensation Intact Extremities: No Edema Assessment/Plan Assessment: 66-year-old female with past medical history significant for throat cancer status post chemotherapy and radiation, last chemotherapy in 2013, status post PEG tube on continuous pump for 12 hours at night, hypothyroidism and oxygen dependent (2.5L at night and 3 during the day) COPD came in with chief complaint of worsening shortness of breath and chills with productive cough for last few days. COPD Exacerbation: -Supplemental oxygen to maintain saturation above 90%. -IV Solu-Medrol 40 mg every 8 hourly. -Ceftin 250 mg twice a day. -TRC nebulization as needed -Mucomyst nebulization as patient having difficulty in bringing sputum and chest congestion. -Chest physiotherapy -incentive spirometry History of hypothyroidism: -We will continue levothyroxine DVT prophylaxis: Mechanical and Lovenox CODE STATUS: Full code Problem List: 1. COPD with exacerbation Pain Ratin Pain Location: none Pain Goal: Remain pain free Pain Plan: tylenol for mild pain Tomorrow's Labs & Rationales: bep/cbc Lainey Suarez MD 03/03/17 1249: Attending MD Review Statement Attending Statement Attending MD Statement: examined this patient, discuss w/resident/PA/GARMENT ALTERATION EXAMINER, agreed w/resident/PA/GARMENT ALTERATION EXAMINER, reviewed EMR data (avail) Attending Assessment/Plan: 66F PMH COPD (2L at rest, 3L on exertion), lung nodule, throat cancer s/p radiation and chemotherapy (Mar 2013), s/p PEG tube, hypothyroidism admitted for dyspnea on exertion, shortness of breath at rest, pleuritic chest pain, and cough with yellow sputum in the setting of COPD exacerbation secondary to acute bronchitis. Still wheezing today, lungs sound tight. Dyspneic with minimal exertion. Anxiety due to SOB. Afebrile, stable vitals. 1. COPD Exacerbation 2. Acute bronchitis 3. Dyspnea on exertion Plan - Continue on general medicine - Follow pulmonary recommendations - Solumedrol 40mg q12h - Nebulizer treatments - Chest physiotherapy - Continue antibiotics - Continue home medications - DVT PPx
[2017-03-03 09:26] LABS: ABSOLUTE BASOPHIL COUNT 0 /CUMM (0.0-0.2); ABSOLUTE EOSINOPHIL COUNT 0.1 /CUMM (0.0-0.7); ABSOLUTE GRANULOCYTE CT 6.2 /CUMM (1.4-6.5); ABSOLUTE LYMPH COUNT 1.1 /CUMM (1.2-3.4); BASOPHIL % 0.2 % (0.0-2.0); EOSINOPHIL % 1.5 % (0-5); GRANULOCYTE % 73.3 % (42.2-75.2); HEMATOCRIT 37.9 % (37-47); MEAN CORPUSCULAR HGB 32.3 PG (27.0-31.0); MEAN CORPUSCULAR HGB CONC 32.9 G/DL (33.0-37.0); MEAN PLATELET VOLUME 10.5 FL (7.4-10.4); PLATELET COUNT 203 /CUMM (130-400); RBC DISTRIBUTION WIDTH 12.6 % (11.5-14.5); RED BLOOD CELL CT 3.87 /CUMM (4.20-5.40); WHITE BLOOD CELL COUNT 8.5 /CUMM (4.8-10.8)
--- NOTE | 2017-03-03 10:58 | RADIOLOGY REPORT ---
EXAMINATION: XR CHEST CLINICAL INFORMATION: Desaturation. Wheezing. COMPARISON: Baseline including 02/28/2017 TECHNIQUE: 2 views of the chest were obtained. FINDINGS: Mild to moderate hyperinflation with increased central peribronchial thickening. Resorption of distal clavicles bilaterally. No significant abnormality otherwise is noted involving the heart, lungs, mediastinum, bony thorax or soft tissues. IMPRESSION: COPD. No infiltrate.
--- NOTE | 2017-03-03 13:50 | PN- Pulmonary ---
Subjective HPI/Critical Care Issues: Patient seen and examined this morning. She feels worse since the taper of steroids. Objective Current Medications: Current Medications Sig/Kody Start time Last Medication Dose Route Stop Time Status Admin Acetaminophen 650 MG Q6P PRN 02/28 2230 AC 03/01 PO 0147 Acetaminophen 1,000 MG Q6P PRN 02/28 2230 AC 03/01 IV 1452 Acetylcysteine 2 ML BID 03/03 2200 AC INH Albuterol Sulfate 3 ML EVERY 4 HRS/AWAKE 03/01 1200 AC 03/03 INH 1237 Albuterol Sulfate 3 ML Q4H PRN 03/01 0130 AC 03/01 INH 0125 Alprazolam 0.5 MG TID PRN 02/28 2245 AC 03/03 PO 03/07 2244 0953 Azithromycin 500 MG DAILY 03/01 1000 DC 03/03 Sodium Chloride 250 ML IV 0955 Budesonide/ 2 PUF BID 03/01 1000 AC 03/03 Formoterol Fumarate INH 0954 Ceftriaxone Sodium 1,000 MG DAILY@1900 03/01 1900 DC 03/02 IV 1814 Cefuroxime Sodium 250 MG BID 03/03 1000 AC 03/03 PO 0953 Chlorhexidine 15 ML TID 03/01 1742 AC 03/03 Gluconate PO 0954 Enoxaparin Sodium 40 MG DAILY 03/01 1000 AC 03/03 SC 0954 Guaifenesin 10 ML Q4-6 PRN PRN 03/03 0045 AC 03/03 PO 0957 Guaifenesin 600 MG Q12 03/01 1000 DC 03/02 PO 0940 Levothyroxine Sodium 0.137 MG DAILY 03/01 1000 AC 03/03 PO 0953 Methylprednisolone 40 MG Q12 03/03 1004 AC 03/03 IV 1017 Methylprednisolone 40 MG Q12 03/01 2200 DC 03/02 IV 0940 Prednisone 60 MG DAILY 03/03 1000 DC 03/03 PO 0953 Tiotropium [place] 1 PUF DAILY 03/01 1000 AC 03/03 INH 0953 Tramadol HCl 50 MG Q8P PRN 03/01 1800 AC 03/03 PO 1017 Vital Signs & I&O Last 24 Hrs of Vitals and I&O: Vital Signs Date Time Temp Pulse Resp B/P B/P Pulse O2 O2 Flow FiO2 Mean Ox Delivery Rate 03/03 0820 98 Nasal 3.0L Cannula 03/03 0700 97.4 84 24 104/60 96 Nasal 3.0L Cannula 03/03 0000 Nasal 3.0L Cannula 03/02 2238 98.0 112 28 144/74 95 Nasal 3.0L Cannula 03/02 1645 97 Nasal 3.0L Cannula 03/02 1600 Nasal 3.0L Cannula 03/02 1429 97.6 87 24 110/58 94 Nasal 3.0L Cannula Intake & Output 03/03 1600 03/03 0800 03/03 0000 Intake Total 1360 600 Output Total 200 600 200 Balance -200 760 400 Intake, IV Intake, 960 TPN/PPN Intake, Tube 600 Feeding Intake, Tube 400 Irrigant Output, Urine 200 600 200 Exam Other Physical Findings: Generally - Awake, alert and comfortable without distress Head and neck - normocephalic, atraumatic, EOMI grossly intact Cardiovascular - S1, S2 Lungs - bilateral wheezing Abdomen - Bowel sounds positive, soft, non-tender Extremities - without edema Results Last 24 Hrs of Lab Results: Laboratory Tests 03/03/17 0851: CBC w Diff NO MAN DIFF REQ, RBC 3.87 L, MCV 98.0, MCH 32.3 H, RDW 12.6, MPV 10.5 H, Gran % 73.3, Lymphocytes % 12.8 L, Monocytes % 12.2 H, Eosinophils % 1.5, Basophils % 0.2, Absolute Granulocytes 6.2, Absolute Lymphocytes 1.1 L, Absolute Monocytes 1.0 H, Absolute Eosinophils 0.1, Absolute Basophils 0, PUBS MCHC 32.9 L Impression/Plan Impression/Plan Impression/Plan: Impression 66 year old woman -COPD exacerbation likely secondary to bronchitis -lung nodule Plan -dc po prednisone -begin solumedrol 40mg iv q12h, would transition with you to oral steroids, however she can use prednisolone liquid via feeding tube -cxr without new infiltrate DVT prophylaxis at all times
[2017-03-03 14:39] VITALS: BP 120/72
[2017-03-03 21:59] VITALS: BP 124/80
[2017-03-04 07:20] VITALS: BP 136/70
--- NOTE | 2017-03-04 07:39 | PN- Housestaff ---
[facility] 0738: Subjective Follow-up For: COPD exacerbation Acute bronchitis Subjective: No overnight events. Patient remained afebrile overnight. Seen and examined this morning. She is on 3L of oxygen and maintaining saturation 95%. Patient denied any chest pain, chills, fever, abdominal pain, lightheadedness, nausea, vomiting, abdominal pain and dysuria. Patient reported having intermittent cough but she is not able to bring anything. Patient also reported having chest tightness and she was anxious this morning. Review of Systems Constitutional: Reports: no symptoms. EENTM: Reports: no symptoms. Cardiovascular: Reports: no symptoms. Respiratory: Reports: cough, short of breath. Gastrointestinal: Reports: no symptoms. Genitourinary: Reports: no symptoms. Musculoskeletal: Reports: no symptoms. Neurological/Psychological: Reports: anxiety. Objective Last 24 Hrs of Vital Signs/I&O Vital Signs Date Time Temp Pulse Resp B/P B/P Pulse O2 O2 Flow FiO2 Mean Ox Delivery Rate 03/04 0804 96 Nasal 3.0L Cannula 03/04 0720 97.4 96 20 136/70 95 Nasal 3.0L Cannula 03/04 0411 94 Nasal 3.0L Cannula 03/04 0000 97 Nasal 3.0L Cannula 03/03 2159 97.5 95 20 124/80 97 Nasal 3.0L Cannula 03/03 1923 96 Nasal 5.0L Cannula 03/03 1610 93 Nasal 3.0L Cannula 03/03 1600 94 Nasal 3.0L Cannula 03/03 1439 97.6 88 20 120/72 98 Intake & Output 03/04 1600 03/04 0800 03/04 0000 Intake Total 1560 690 Output Total 300 600 Balance 1260 90 Intake, IV 0 10 Intake, Oral 0 Intake, Tube 960 480 Feeding Intake, Tube 600 200 Irrigant Number 0 Bowel Movements Output, Urine 300 600 Physical Exam General Appearance: Alert, Oriented X3, Cooperative Skin Temp/Moisture Exam: Warm/Dry HEENT: Atraumatic, PERRLA, EOMI Neck: Supple Cardiovascular: Normal S1, Normal S2 Lungs: B/L WHEEZING Abdomen: Soft, No Tenderness Neurological: Normal Speech, Strength at 5/5 X4 Ext, Normal Tone, Sensation Intact Extremities: No Edema Assessment/Plan Assessment: 66-year-old female with past medical history significant for throat cancer status post chemotherapy and radiation, last chemotherapy in 2013, status post PEG tube on continuous pump for 12 hours at night, hypothyroidism and oxygen dependent (2.5L at night and 3 during the day) COPD came in with chief complaint of worsening shortness of breath and chills with productive cough for last few days. COPD Exacerbation: -Supplemental oxygen to maintain saturation above 90%. -IV Solu-Medrol 40 mg every 8 hourly. -Ceftin 250 mg twice a day. -TRC nebulization as needed -Mucomyst nebulization twice a day as patient having difficulty in bringing sputum and chest congestion. -Chest physiotherapy -incentive spirometry History of hypothyroidism: -We will continue levothyroxine DVT prophylaxis: Mechanical and Lovenox CODE STATUS: Full code Problem List: 1. COPD with exacerbation 2. Bronchitis Pain Ratin Pain Location: NONE Pain Goal: Remain pain free Pain Plan: TYLENOL FOR MILD PAIN Tomorrow's Labs & Rationales: CBC/BEP Lainey Suarez MD 03/04/17 1233: Attending MD Review Statement Attending Statement Attending MD Statement: examined this patient, discuss w/resident/PA/INTERNIST, agreed w/resident/PA/INTERNIST, reviewed EMR data (avail) Attending Assessment/Plan: 66F PMH COPD (2L at rest, 3L on exertion), lung nodule, throat cancer s/p radiation and chemotherapy (Mar 2013), s/p PEG tube, hypothyroidism admitted for dyspnea on exertion, shortness of breath at rest, pleuritic chest pain, and cough with yellow sputum in the setting of COPD exacerbation secondary to acute bronchitis. Still wheezing today, lungs sound tight. Dyspneic with minimal exertion. Anxiety due to SOB. Afebrile, stable vitals. 1. COPD Exacerbation 2. Acute bronchitis 3. Dyspnea on exertion Plan - Continue on general medicine - Follow pulmonary recommendations - Solumedrol 40mg q12h - Nebulizer treatments - Chest physiotherapy - Continue antibiotics - Continue home medications - DVT PPx
[2017-03-04 08:32] LABS: ABSOLUTE BASOPHIL COUNT 0 /CUMM (0.0-0.2); ABSOLUTE EOSINOPHIL COUNT 0 /CUMM (0.0-0.7); ABSOLUTE GRANULOCYTE CT 7.3 /CUMM (1.4-6.5); ABSOLUTE LYMPH COUNT 0.5 /CUMM (1.2-3.4); ABSOLUTE MONOCYTE COUNT 0.7 /CUMM (0.10-0.60); BASOPHIL % 0.2 % (0.0-2.0); EOSINOPHIL % 0 % (0-5); HEMATOCRIT 37.2 % (37-47); MEAN CORPUSCULAR HGB 32.7 PG (27.0-31.0); MEAN CORPUSCULAR HGB CONC 32.8 G/DL (33.0-37.0); MEAN CORPUSCULAR VOLUME 99.6 FL (81.0-99.0); MEAN PLATELET VOLUME 10.4 FL (7.4-10.4); PLATELET COUNT 174 /CUMM (130-400); RED BLOOD CELL CT 3.74 /CUMM (4.20-5.40); WHITE BLOOD CELL COUNT 8.5 /CUMM (4.8-10.8)
[2017-03-04 09:10] LABS: GRANULOCYTE % 85.3 % (42.2-75.2)
--- NOTE | 2017-03-04 11:09 | PN- Pulmonary ---
Subjective HPI/Critical Care Issues: pt seen and examined somewhat improved cxr stable Objective Current Medications: Current Medications Sig/Kody Start time Last Medication Dose Route Stop Time Status Admin Acetaminophen 650 MG Q6P PRN 02/28 2230 AC 03/01 PO 0147 Acetaminophen 1,000 MG Q6P PRN 02/28 2230 AC 03/01 IV 1452 Acetylcysteine 2 ML BID 03/03 2200 CAN INH Albuterol Sulfate 3 ML EVERY 4 HRS/AWAKE 03/01 1200 AC 03/04 INH 0750 Albuterol Sulfate 3 ML Q4H PRN 03/01 0130 AC 03/01 INH 0125 Alprazolam 0.5 MG TID PRN 02/28 2245 AC 03/04 PO 03/07 2244 0658 Budesonide/ 2 PUF BID 03/01 1000 AC 03/03 Formoterol Fumarate INH 2107 Cefuroxime Sodium 250 MG BID 03/03 1000 AC 03/03 PO 2107 Chlorhexidine 15 ML TID 03/01 1742 AC 03/03 Gluconate PO 2107 Enoxaparin Sodium 40 MG DAILY 03/01 1000 AC 03/03 SC 0954 Guaifenesin 10 ML Q4-6 PRN PRN 03/03 0045 AC 03/03 PO 1827 Guaifenesin/ 10 ML .STK-MED ONE 03/03 1826 DC Dextromethorphan PO 03/03 1827 Levothyroxine Sodium 0.137 MG DAILY 03/01 1000 AC 03/03 PO 0953 Methylprednisolone 40 MG Q12 03/03 1004 AC 03/03 IV 2107 Tiotropium [place] 1 PUF DAILY 03/01 1000 AC 03/03 INH 0953 Tramadol HCl 50 MG Q8P PRN 03/01 1800 AC 03/03 PO 1827 Vital Signs & I&O Last 24 Hrs of Vitals and I&O: Vital Signs Date Time Temp Pulse Resp B/P B/P Pulse O2 O2 Flow FiO2 Mean Ox Delivery Rate 03/04 0804 96 Nasal 3.0L Cannula 03/04 07 97.4 96 20 136/70 95 Nasal 3.0L Cannula 03/04 0411 94 Nasal 3.0L Cannula 03/04 0000 97 Nasal 3.0L Cannula 03/03 2158 97.5 95 20 124/80 97 Nasal 3.0L Cannula 03/03 1923 96 Nasal 5.0L Cannula 03/03 1610 93 Nasal 3.0L Cannula 03/03 1600 94 Nasal 3.0L Cannula 03/03 1439 97.6 88 20 120/72 98 Intake & Output 03/04 1600 03/04 0800 03/04 0000 Intake Total 1560 690 Output Total 300 600 Balance 1260 90 Intake, IV 0 10 Intake, Oral 0 Intake, Tube 960 480 Feeding Intake, Tube 600 200 Irrigant Number 0 Bowel Movements Output, Urine 300 600 Exam Other Physical Findings: Generally - Awake, alert and comfortable without distress Head and neck - normocephalic, atraumatic, EOMI grossly intact Cardiovascular - S1, S2 Lungs - bilateral wheezing Abdomen - Bowel sounds positive, soft, non-tender Extremities - without edema Results Last 24 Hrs of Lab Results: Laboratory Tests 03/04/17 0740: Anion Gap 9, Estimated GFR > 60, BUN/Creatinine Ratio 68.0 H, CBC w Diff NO MAN DIFF REQ, RBC 3.74 L, MCV 99.6 H, MCH 32.7 H, RDW 13.0, MPV 10.4, Gran % 85.3 H, Lymphocytes % 6.0 L, Monocytes % 8.5, Eosinophils % 0, Basophils % 0.2, Absolute Granulocytes 7.3 H, Absolute Lymphocytes 0.5 L, Absolute Monocytes 0.7 H, Absolute Eosinophils 0, Absolute Basophils 0, PUBS MCHC 32.8 L Impression/Plan Impression/Plan Impression/Plan: Impression 66 year old woman -COPD exacerbation likely secondary to bronchitis -lung nodule Plan -keep solumedrol 40mg iv q12h -mucomyst nebulized -cxr without new infiltrate DVT prophylaxis at all times
[2017-03-04 14:34] VITALS: BP 118/62
[2017-03-04 21:04] VITALS: BP 140/72
--- NOTE | 2017-03-04 21:24 | Event Note ---
Event Note Event Note: S: Patient complaining of palpitations and chest pressure B: 66F PMH COPD (2L at rest, 3L on exertion), lung nodule, throat cancer s/p radiation and chemotherapy (Mar 2013), s/p PEG tube, hypothyroidism admitted for dyspnea on exertion, shortness of breath at rest, pleuritic chest pain, and cough with yellow sputum in the setting of COPD exacerbation secondary to acute bronchitis. A: Patient sitting in bed in no acute distress appears to be anxious. S1 plus S2 mild wheezes on examination Stat EKG and trops. Her EKGs Showed No Acute Changes from the Previous One, trops Negative. Respiratory Therapist paged patient received nebulization treatment. 0.5 mg Xanax given pt already on TID schedule Went in to reevaluate the patient. Patient sleeping without any distress.talked the nurse chest pressure resolved
[2017-03-04 22:46] VITALS: BP 130/80
[2017-03-05 06:15] VITALS: BP 156/80
--- NOTE | 2017-03-05 07:48 | PN- Housestaff ---
[facility]: Subjective Follow-up For: COPD exacerbation Acute bronchitis Subjective: No overnight events. Patient remained afebrile overnight. Seen and examined this morning. She denied any chest pain, nausea, vomiting, chills, fever, abdominal pain and dysuria. Patient was anxious she is this morning and patient was tachycardic and anxious last night and they did the EKG and troponin that was negative. Patient is having cough and bringing yellow colored phlegm. Will talk to pharmacy if they can change prednisone to prednisolone. I talked to pharmacy about the conversation of prednisone to prednisolone, they checked it on line and told me that it's equal no change in strength. Review of Systems Constitutional: Reports: no symptoms. EENTM: Reports: no symptoms. Cardiovascular: Reports: no symptoms. Respiratory: Reports: cough, sputum production. Gastrointestinal: Reports: no symptoms. Genitourinary: Reports: no symptoms. Musculoskeletal: Reports: see HPI. Neurological/Psychological: Reports: no symptoms. Objective Last 24 Hrs of Vital Signs/I&O Vital Signs Date Time Temp Pulse Resp B/P B/P Pulse O2 O2 Flow FiO2 Mean Ox Delivery Rate 03/05 0813 96 Nasal 3.0L Cannula 03/05 0800 Nasal 3.0L Cannula 03/05 0615 97.9 98 22 156/80 94 Nasal Cannula 03/05 0000 96 Nasal 3.0L Cannula 03/04 2300 94 03/04 2246 98.0 103 20 130/80 94 Nasal Cannula 03/04 2104 97.5 110 24 140/72 96 Nasal 3.0L Cannula 03/04 1645 98 Nasal 3.0L Cannula 03/04 1600 Nasal 3.0L Cannula 03/04 1434 98.2 80 20 118/62 95 Intake & Output 03/05 1600 03/05 0800 03/05 0000 Intake Total 1260 340 Output Total 300 Balance 1260 40 Intake, Oral 0 Intake, Tube 960 240 Feeding Intake, Tube 300 100 Irrigant Output, Urine 300 Physical Exam General Appearance: Alert, Oriented X3, Cooperative, No Acute Distress Skin Temp/Moisture Exam: Warm/Dry Sepsis Skin Exam (color): Normal for Ethnicity HEENT: Atraumatic, PERRLA, EOMI Neck: Supple Cardiovascular: Normal S1, Normal S2 Lungs: b/l crackles Abdomen: Soft, No Tenderness Neurological: Normal Speech, Normal Tone Extremities: No Edema Assessment/Plan Assessment: 66-year-old female with past medical history significant for throat cancer status post chemotherapy and radiation, last chemotherapy in 2013, status post PEG tube on continuous pump for 12 hours at night, hypothyroidism and oxygen dependent (2.5L at night and 3 during the day) COPD came in with chief complaint of worsening shortness of breath and chills with productive cough for last few days. COPD Exacerbation precipitaed by bronchitis: -Supplemental oxygen to maintain saturation above 90%. -IV Solu-Medrol 30 mg every 8 hourly. -Ceftin 250 mg twice a day. -TRC nebulization as needed -Mucomyst nebulization twice a day as patient having difficulty in bringing sputum and chest congestion. -Chest physiotherapy -incentive spirometry History of hypothyroidism: -We will continue levothyroxine DVT prophylaxis: Mechanical and Lovenox CODE STATUS: Full code Problem List: 1. Bronchitis 2. COPD with exacerbation Pain Ratin Pain Location: none Pain Goal: Remain pain free Pain Plan: tylenol for mild pain Tomorrow's Labs & Rationales: bep/cbc Lainey Suarez MD 03/05/17 1218: Attending MD Review Statement Attending Statement Attending MD Statement: examined this patient, discuss w/resident/PA/MOLD TOOLING TECHNICIAN, agreed w/resident/PA/MOLD TOOLING TECHNICIAN, reviewed EMR data (avail) Attending Assessment/Plan: 66F PMH COPD (2L at rest, 3L on exertion), lung nodule, throat cancer s/p radiation and chemotherapy (Mar 2013), s/p PEG tube, hypothyroidism admitted for dyspnea on exertion, shortness of breath at rest, pleuritic chest pain, and cough with yellow sputum in the setting of COPD exacerbation secondary to acute bronchitis. Wheezing is improved but still present. Dyspneic with minimal exertion. Anxiety due to SOB. Afebrile, stable vitals. 1. COPD Exacerbation 2. Acute bronchitis 3. Dyspnea on exertion Plan - Continue on general medicine - Follow pulmonary recommendations - Solumedrol 30mg q12h, with plans to switch to Prednisolone tomorrow - Nebulizer treatments - Chest physiotherapy - Continue antibiotics - Continue home medications - DVT PPx - Anticipated discharge tomorrow on Ceftin and Prednisolone with outpatient pulmonary follow up
--- NOTE | 2017-03-05 11:17 | PN- Pulmonary ---
Subjective HPI/Critical Care Issues: pt seen and examind feels better still however using accessory muscles Objective Current Medications: Current Medications Sig/Kody Start time Last Medication Dose Route Stop Time Status Admin Acetaminophen 650 MG Q6P PRN 02/28 2230 AC 03/01 PO 0147 Acetaminophen 1,000 MG Q6P PRN 02/28 2230 AC 03/01 IV 1452 Acetylcysteine 4 ML BID 03/04 1133 AC 03/05 INH 0810 Albuterol Sulfate 3 ML EVERY 4 HRS/AWAKE 03/01 1200 AC 03/05 INH 0810 Albuterol Sulfate 3 ML Q4H PRN 03/01 0130 AC 03/01 INH 0125 Alprazolam 0.5 MG TID PRN 02/28 2245 AC 03/05 PO 03/07 2244 0548 Budesonide/ 2 PUF BID 03/01 1000 AC 03/05 Formoterol Fumarate INH 1001 Cefuroxime Sodium 250 MG BID 03/03 1000 AC 03/05 PO 1001 Chlorhexidine 15 ML TID 03/01 1742 AC 03/05 Gluconate PO 1000 Enoxaparin Sodium 40 MG DAILY 03/01 1000 AC 03/05 SC 0958 Guaifenesin 10 ML .STK-MED ONE 03/04 1807 DC PO 03/04 1808 Guaifenesin 10 ML Q4-6 PRN PRN 03/03 0045 AC 03/04 PO 1809 Levothyroxine Sodium 0.137 MG DAILY 03/01 1000 AC 03/05 PO 0959 Methylprednisolone 30 MG Q12 03/05 1000 AC 03/05 IV 1000 Methylprednisolone 40 MG Q12 03/03 1004 DC 03/04 IV 2226 Nystatin 5 ML 4 TIMES/DAY 03/04 1452 AC 03/05 PO 1000 Tiotropium [place] 1 PUF DAILY 03/01 1000 AC 03/05 INH 0959 Tramadol HCl 50 MG Q8P PRN 03/01 1800 AC 03/04 PO 2224 Vital Signs & I&O Last 24 Hrs of Vitals and I&O: Vital Signs Date Time Temp Pulse Resp B/P B/P Pulse O2 O2 Flow FiO2 Mean Ox Delivery Rate 03/05 0813 96 Nasal 3.0L Cannula 03/05 0800 Nasal 3.0L Cannula 03/05 0615 97.9 98 22 156/80 94 Nasal Cannula 03/05 0000 96 Nasal 3.0L Cannula 03/04 2300 94 03/04 2246 98.0 103 20 130/80 94 Nasal Cannula 03/04 2104 97.5 110 24 140/72 96 Nasal 3.0L Cannula 03/04 1645 98 Nasal 3.0L Cannula 03/04 1600 Nasal 3.0L Cannula 03/04 1434 98.2 80 20 118/62 95 Intake & Output 03/05 1600 03/05 0800 03/05 0000 Intake Total 1260 340 Output Total 300 Balance 1260 40 Intake, Oral 0 Intake, Tube 960 240 Feeding Intake, Tube 300 100 Irrigant Output, Urine 300 Exam Other Physical Findings: Generally - Awake, alert and comfortable without distress Head and neck - normocephalic, atraumatic, EOMI grossly intact Cardiovascular - S1, S2 Lungs - bilateral wheezing Abdomen - Bowel sounds positive, soft, non-tender Extremities - without edema Results Last 24 Hrs of Lab Results: Laboratory Tests 03/05/17 0805: Anion Gap 6, Estimated GFR > 60, BUN/Creatinine Ratio 56.0 H 03/04/17 2155: Troponin I < 0.01 Impression/Plan Impression/Plan Impression/Plan: Impression 66 year old woman -COPD exacerbation likely secondary to bronchitis -lung nodule Plan -change solumedrol 30mg iv q12h - please ask pharmacy prednisone to prednisolone conversion in anticipation of switching soon -mucomyst nebulized -cxr without new infiltrate DVT prophylaxis at all times
[2017-03-05 14:52] VITALS: BP 120/72
[2017-03-05 22:21] VITALS: BP 130/80
[2017-03-06 06:59] VITALS: BP 122/70
--- NOTE | 2017-03-06 07:31 | PN- Housestaff ---
[facility] 03/06/17 0731: Subjective Follow-up For: COPD exacerbation due to acute bronchitis Subjective: Events. Patient remained afebrile overnight. Seen and examined this morning. Patient is using 3 L of oxygen and maintaining saturation 97%. Patient reported that she becomes desaturated whenever she tried to walk with oxygen to the restroom. Patient also reported having chest congestion with intermittent cough and bringing yellow color sputum. Patient denied any chest pain, chills, fever, nausea, vomiting, abdominal pain and dysuria. Review of Systems Constitutional: Reports: no symptoms. EENTM: Reports: no symptoms. Cardiovascular: Reports: no symptoms. Respiratory: Reports: cough, sputum production. Gastrointestinal: Reports: no symptoms. Genitourinary: Reports: no symptoms. Musculoskeletal: Reports: no symptoms. Neurological/Psychological: Reports: anxiety. Objective Last 24 Hrs of Vital Signs/I&O Vital Signs Date Time Temp Pulse Resp B/P B/P Pulse O2 O2 Flow FiO2 Mean Ox Delivery Rate 03/06 0832 97 Nasal 3.0L Cannula 03/06 0800 94 Nasal 3.0L Cannula 03/06 0659 97.6 83 20 122/70 97 Room Air 03/06 0000 Nasal 3.0L Cannula 03/05 2221 98.7 94 20 130/80 98 Nasal Cannula 03/05 1635 97 Nasal 3.0L Cannula 03/05 1600 94 Nasal 3.0L Cannula 03/05 1452 98.8 90 20 120/72 96 Intake & Output 03/06 1600 03/06 0800 03/06 0000 Intake Total 1000 800 Output Total 400 600 Balance 600 200 Intake, Tube 1000 800 Feeding Output, Urine 400 600 Physical Exam General Appearance: Alert, Oriented X3, Cooperative Skin Temp/Moisture Exam: Warm/Dry Sepsis Skin Exam (color): Normal for Ethnicity HEENT: Atraumatic, PERRLA, EOMI Neck: Supple Cardiovascular: Normal S1, Normal S2 Lungs: b/l wheezing Abdomen: Soft, No Tenderness Neurological: Normal Speech, Normal Tone, Sensation Intact Extremities: No Edema Assessment/Plan Assessment: 66-year-old female with past medical history significant for throat cancer status post chemotherapy and radiation, last chemotherapy in 2013, status post PEG tube on continuous pump for 12 hours at night, hypothyroidism and oxygen dependent (2.5L at night and 3 during the day) COPD came in with chief complaint of worsening shortness of breath and chills with productive cough for last few days. COPD Exacerbation precipitaed by bronchitis: -Supplemental oxygen to maintain saturation above 90%. -IV Solu-Medrol 30 mg every 8 hourly. -Completed 5 days course of antibiotics. -TRC nebulization as needed -Mucomyst nebulization twice a day as patient having difficulty in bringing sputum and chest congestion. -Chest physiotherapy -incentive spirometry History of hypothyroidism: -We will continue levothyroxine DVT prophylaxis: Mechanical and Lovenox CODE STATUS: Full code Problem List: 1. COPD with exacerbation 2. Bronchitis Pain Ratin Pain Location: none Pain Goal: Remain pain free Pain Plan: tylenol for mild pain Tomorrow's Labs & Rationales: cbc/bep Clint Adair MD 03/06/172122: Attending MD Review Statement Attending Statement Attending MD Statement: examined this patient, discuss w/resident/PA/WINDOWS SERVER SPECIALIST, agreed w/resident/PA/WINDOWS SERVER SPECIALIST, reviewed EMR data (avail), amended to note Attending Assessment/Plan: The patient was seen and discussed with house staff. Appreciate pulmonary input. The patient c/o persistent thick secretions. Culture sent, however rejected by lab due to squamous cells (may be related to her h/o H&N ca). Pulmonary input appreciated. Trial of Mucomyst in progress.
[2017-03-06 08:49] LABS: ABSOLUTE BASOPHIL COUNT 0 /CUMM (0.0-0.2); ABSOLUTE EOSINOPHIL COUNT 0 /CUMM (0.0-0.7); ABSOLUTE GRANULOCYTE CT 6.9 /CUMM (1.4-6.5); ABSOLUTE LYMPH COUNT 0.9 /CUMM (1.2-3.4); ABSOLUTE MONOCYTE COUNT 0.7 /CUMM (0.10-0.60); BASOPHIL % 0.1 % (0.0-2.0); EOSINOPHIL % 0.2 % (0-5); GRANULOCYTE % 81.3 % (42.2-75.2); HEMATOCRIT 39.4 % (37-47); MEAN CORPUSCULAR HGB 32.4 PG (27.0-31.0); MEAN CORPUSCULAR HGB CONC 32.9 G/DL (33.0-37.0); MEAN CORPUSCULAR VOLUME 98.3 FL (81.0-99.0); MEAN PLATELET VOLUME 10.2 FL (7.4-10.4); PLATELET COUNT 204 /CUMM (130-400); RED BLOOD CELL CT 4.01 /CUMM (4.20-5.40); WHITE BLOOD CELL COUNT 8.5 /CUMM (4.8-10.8)
--- NOTE | 2017-03-06 11:38 | PN- Pulmonary ---
Subjective HPI/Critical Care Issues: pt seen and examined feels somewhat better still with dyspnea Objective Current Medications: Current Medications Sig/Kody Start time Last Medication Dose Route Stop Time Status Admin Acetaminophen 650 MG Q6P PRN 02/28 2230 AC 03/01 PO 0147 Acetaminophen 1,000 MG Q6P PRN 02/28 2230 AC 03/01 IV 1452 Acetylcysteine 4 ML BID 03/04 1133 AC 03/06 INH 0915 Albuterol Sulfate 3 ML EVERY 4 HRS/AWAKE 03/01 1200 AC 03/06 INH 0829 Albuterol Sulfate 3 ML Q4H PRN 03/01 0130 AC 03/01 INH 0125 Alprazolam 0.5 MG TID PRN 02/28 2245 AC 03/06 PO 03/07 2244 0923 Budesonide/ 2 PUF BID 03/01 1000 AC 03/06 Formoterol Fumarate INH 0940 Cefuroxime Sodium 250 MG ONCE ONE 03/05 2200 DC 03/05 PO 03/05 2201 2157 Cefuroxime Sodium 250 MG BID 03/03 1000 DC 03/05 PO 1001 Chlorhexidine 15 ML TID 03/01 1742 AC 03/06 Gluconate PO 0941 Enoxaparin Sodium 40 MG DAILY 03/01 1000 AC 03/06 SC 0924 Guaifenesin 10 ML Q4-6 PRN PRN 03/03 0045 AC 03/04 PO 1809 Levothyroxine Sodium 0.137 MG DAILY 03/01 1000 AC 03/05 PO 0959 Methylprednisolone 30 MG Q12 03/05 1000 AC 03/06 IV 0924 Nystatin 5 ML 4 TIMES/DAY 03/04 1452 AC 03/06 PO 0923 Tiotropium [place] 1 PUF DAILY 03/01 1000 AC 03/06 INH 0923 Tramadol HCl 50 MG Q8P PRN 03/01 1800 AC 03/05 PO 2151 Vital Signs & I&O Last 24 Hrs of Vitals and I&O: Vital Signs Date Time Temp Pulse Resp B/P B/P Pulse O2 O2 Flow FiO2 Mean Ox Delivery Rate 03/06 0832 97 Nasal 3.0L Cannula 03/06 0659 97.6 83 20 122/70 97 Room Air 03/06 0000 Nasal 3.0L Cannula 03/05 2221 98.7 94 20 130/80 98 Nasal Cannula 03/05 1635 97 Nasal 3.0L Cannula 03/05 1600 94 Nasal 3.0L Cannula 03/05 1452 98.8 90 20 120/72 96 Intake & Output 03/06 1600 03/06 0800 03/06 0000 Intake Total 1000 800 Output Total 400 600 Balance 600 200 Intake, Tube 1000 800 Feeding Output, Urine 400 600 Exam Other Physical Findings: Generally - Awake, alert and comfortable without distress Head and neck - normocephalic, atraumatic, EOMI grossly intact Cardiovascular - S1, S2 Lungs - bilateral wheezing Abdomen - Bowel sounds positive, soft, non-tender Extremities - without edema Results Last 24 Hrs of Lab Results: Laboratory Tests 03/06/17 0738: Anion Gap 11, Estimated GFR > 60, BUN/Creatinine Ratio 55.0 H, Magnesium 2.0, CBC w Diff NO MAN DIFF REQ, RBC 4.01 L, MCV 98.3, MCH 32.4 H, RDW 13.0, MPV 10.2, Gran % 81.3 H, Lymphocytes % 10.5 L, Monocytes % 7.9, Eosinophils % 0.2, Basophils % 0.1, Absolute Granulocytes 6.9 H, Absolute Lymphocytes 0.9 L, Absolute Monocytes 0.7 H, Absolute Eosinophils 0, Absolute Basophils 0, PUBS MCHC 32.9 L Impression/Plan Impression/Plan Impression/Plan: Impression 66 year old woman -COPD exacerbation likely secondary to bronchitis -lung nodule Plan -keep solumedrol 30mg iv q12h today - please ask pharmacy prednisone to prednisolone conversion in anticipation of switching soon -mucomyst nebulized -cxr without new infiltrate DVT prophylaxis at all times
[2017-03-06 15:28] VITALS: BP 110/70
[2017-03-06 16:00] VITALS: BP 110/70
--- NOTE | 2017-03-06 21:17 | Event Note ---
Event Note Event Note: S:Patient is requesting the flushes amount and frequency to be decreased B: Patient is currently being treated for COPD exacerbation secondary to acute bronchitis. She has a PEG tube with flushes at 175 mL after every 2 hours A/P : -Convinced the patient to try 100 mL/2h -Nutrition consult placed -Will sign out to the morning team to follow-up with their recommendations -Current flushes at 100ml/2h readjust accordingly
[2017-03-06 22:24] VITALS: BP 112/60
[2017-03-07 06:58] VITALS: BP 130/76
--- NOTE | 2017-03-07 07:20 | PN- Housestaff ---
See Addendum Subjective Follow-up For: COPD exacerbation due to acute bronchitis Subjective: No overnight events. Patient remained afebrile overnight. Seen and examined this morning. Patient denied any chest pain, nausea, vomiting, chills, fever, abdominal pain and dysuria. Patient is feeling much improved today she is using 3 L of oxygen and maintaining saturation 96%. Patient having intermittent cough and sometimes she is bringing yellow colored phlegm. Yesterday sputum culture were sent and results are pending. Patient is afebrile and WBC count is normal. Patient has history of throat cancer and she is on PEG tube feeding. She was complaining of fullness after the tube feeds we will get a nutrition consult today to adjust her tube feed doses. Review of Systems Constitutional: Reports: no symptoms. EENTM: Reports: no symptoms. Cardiovascular: Reports: no symptoms. Respiratory: Reports: short of breath. Gastrointestinal: Reports: no symptoms. Genitourinary: Reports: no symptoms. Musculoskeletal: Reports: no symptoms. Neurological/Psychological: Reports: no symptoms. Objective Last 24 Hrs of Vital Signs/I&O Vital Signs Date Time Temp Pulse Resp B/P B/P Pulse O2 O2 Flow FiO2 Mean Ox Delivery Rate 03/07 0658 97.6 95 20 130/76 96 Nasal 3.0L Cannula 03/07 0000 Nasal 3.0L Cannula 03/06 2224 97.7 98 20 112/60 98 Nasal Cannula 03/06 1645 98 Nasal 3.0L Cannula 03/06 1600 94 Nasal 3.0L Cannula 03/06 1600 98.1 104 20 110/70 98 Nasal 3.0L Cannula 03/06 1528 98.1 103 22 110/70 93 Intake & Output 03/07 1600 03/07 0800 03/07 0000 Intake Total 1315 755 Output Total 300 800 Balance 1015 -45 Intake, Tube 840 480 Feeding Intake, Tube 475 275 Irrigant Output, Urine 300 800 Physical Exam General Appearance: Alert, Oriented X3, Cooperative Skin Temp/Moisture Exam: Warm/Dry HEENT: Atraumatic, PERRLA, EOMI Neck: Supple Cardiovascular: Normal S1, Normal S2 Lungs: b/l wheezing. Abdomen: Soft, No Tenderness, PEG tube Neurological: Normal Speech, Normal Tone Extremities: No Edema Assessment/Plan Assessment: 66-year-old female with past medical history significant for throat cancer status post chemotherapy and radiation, last chemotherapy in 2013, status post PEG tube on continuous pump for 12 hours at night, hypothyroidism and oxygen dependent (2.5L at night and 3 during the day) COPD came in with chief complaint of worsening shortness of breath and chills with productive cough for last few days. COPD Exacerbation precipitaed by bronchitis: -Supplemental oxygen to maintain saturation above 90%. -Completed 5 days course of antibiotics. -TRC nebulization as needed -Mucomyst nebulization twice a day as patient having difficulty in bringing sputum and chest congestion. -Chest physiotherapy -incentive spirometry -sputum culture was sent yesterday and results are pending. -We will discontinue the iv solu medrol and start prednisolone 60mg (15mg/5ml). prednisone is equal to predisolone in strength with conversion no difference as i talked to [place] [facility]. History of hypothyroidism: -We will continue levothyroxine PEG tube feeding: -Patient has a history of throat cancer and she is not able to take anything oral. -Patient is getting tube feeds. -Today she was complaining of fullness after the tube feeds so we will get the nutrition consult to her chest her tube feeding doses. DVT prophylaxis: Mechanical and Lovenox CODE STATUS: Full code Problem List: 1. Bronchitis 2. COPD with exacerbation Pain Ratin Pain Location: none Pain Goal: Remain pain free Pain Plan: tylenol for mild pain Tomorrow's Labs & Rationales: none
[2017-03-07 08:45] LABS: ABSOLUTE BASOPHIL COUNT 0 /CUMM (0.0-0.2); ABSOLUTE EOSINOPHIL COUNT 0 /CUMM (0.0-0.7); ABSOLUTE GRANULOCYTE CT 7.3 /CUMM (1.4-6.5); ABSOLUTE LYMPH COUNT 0.7 /CUMM (1.2-3.4); ABSOLUTE MONOCYTE COUNT 0.7 /CUMM (0.10-0.60); BASOPHIL % 0.1 % (0.0-2.0); EOSINOPHIL % 0.1 % (0-5); GRANULOCYTE % 83.7 % (42.2-75.2); HEMATOCRIT 39.8 % (37-47); MEAN CORPUSCULAR HGB 32.7 PG (27.0-31.0); MEAN CORPUSCULAR HGB CONC 33.2 G/DL (33.0-37.0); MEAN CORPUSCULAR VOLUME 98.3 FL (81.0-99.0); MEAN PLATELET VOLUME 10.1 FL (7.4-10.4); PLATELET COUNT 228 /CUMM (130-400); RBC DISTRIBUTION WIDTH 12.8 % (11.5-14.5); RED BLOOD CELL CT 4.05 /CUMM (4.20-5.40); WHITE BLOOD CELL COUNT 8.7 /CUMM (4.8-10.8)
--- NOTE | 2017-03-07 08:57 | Patient Discharge Instructions ---
Discharge Instructions General Discharge Information You were seen/treated for: COPD exacerbation due to acute bronchitis. Watch for these problems: Fever, chills, severe cough with sputum, shortness of breath, chest pain, and altered mental status. If you experience any of these symptoms please call your primary care physician or come to ED. Special Instructions: Follow your primary care physician in one week. 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 Diet Recommended Diet: Tube feeding. Activity Activity Self Limited: Yes Acute Coronary Syndrome Inclusion Criteria At DC or during hospital stay patient has or had the following: ACS DIAGNOSIS No Discharge Core Measures Meds if any: Prescribed or Continued at Discharge Meds if any: NOT Prescribed or Continued at Discharge Congestive Heart Failure Inclusion Criteria At DC or during hospital stay patient has or had the following: CHF DIAGNOSIS No Discharge Core Measures Meds if any: Prescribed or Continued at Discharge Meds if any: NOT Prescribed or Continued at Discharge Cerebrovascular accident Inclusion Criteria At DC or during hospital stay patient has or had the following: CVA/TIA Diagnosis No Discharge Core Measures Meds if any: Prescribed or Continued at Discharge Meds if any: NOT Prescribed or Continued at Discharge Venous thromboembolism Inclusion Criteria VTE Diagnosis No VTE Type NONE VTE Confirmed by (Test) NONE Discharge Core Measures - Per Current guidelines, there needs to be overlap - treatment for the first 5 days of Warfarin therapy. - If discharged on Warfarin prior to 5 days of - overlap therapy, the patient will need to be - assessed for post discharge needs including - *Post discharge parental anticoagulation - *Warfarin and/or parental anticoagulation education - *Follow up date to check INR post discharge At least 5 days overlap therapy as Inpatient No Meds if any: Prescribed or Continued at Discharge Note: Overlap Therapy is Warfarin and Anticoagulant Meds if any: NOT Prescribed or Continued at Discharge
--- NOTE | 2017-03-07 12:59 | PN- Pulmonary ---
Subjective HPI/Critical Care Issues: Patient seen and examined this morning. She appears to be feeling better not using accessory muscles as much and wheezing has subsided. Objective Current Medications: Current Medications Sig/Kody Start time Last Medication Dose Route Stop Time Status Admin Acetaminophen 650 MG Q6P PRN 02/28 2230 AC 03/01 PO 0147 Acetaminophen 1,000 MG Q6P PRN 02/28 2230 AC 03/01 IV 1452 Acetylcysteine 4 ML BID 03/04 1133 AC 03/07 INH 0828 Albuterol Sulfate 3 ML EVERY 4 HRS/AWAKE 03/01 1200 AC 03/07 INH 1149 Albuterol Sulfate 3 ML Q4H PRN 03/01 0130 AC 03/01 INH 0125 Alprazolam 0.5 MG TID PRN 02/28 2245 AC 03/07 PO 03/07 2244 0658 Budesonide/ 2 PUF BID 03/01 1000 AC 03/07 Formoterol Fumarate INH 0833 Chlorhexidine 15 ML TID 03/01 1742 AC 03/07 Gluconate PO 0833 Enoxaparin Sodium 40 MG DAILY 03/01 1000 AC 03/07 SC 0834 Guaifenesin 10 ML Q4-6 PRN PRN 03/03 0045 AC 03/04 PO 1809 Levothyroxine Sodium 0.137 MG DAILY 03/01 1000 AC 03/07 PO 0858 Methylprednisolone 30 MG Q12 03/05 1000 AC 03/07 IV 0858 Nystatin 5 ML 4 TIMES/DAY 03/04 1452 AC 03/07 PO 0858 Tiotropium [place] 1 PUF DAILY 03/01 1000 AC 03/07 INH 0858 Tramadol HCl 50 MG Q8P PRN 03/01 1800 AC 03/06 PO 2138 Vital Signs & I&O Last 24 Hrs of Vitals and I&O: Vital Signs Date Time Temp Pulse Resp B/P B/P Pulse O2 O2 Flow FiO2 Mean Ox Delivery Rate 03/07 0930 99 Nasal 3.0L Cannula 03/07 0800 18 94 Nasal 2.0L Cannula 03/07 0800 94 Nasal 2.0L Cannula 03/07 0658 97.6 95 20 130/76 96 Nasal 3.0L Cannula 03/07 0000 Nasal 3.0L Cannula 03/06 2224 97.7 98 20 112/60 98 Nasal Cannula 03/06 1645 98 Nasal 3.0L Cannula 03/06 1600 94 Nasal 3.0L Cannula 03/06 1600 98.1 104 20 110/70 98 Nasal 3.0L Cannula 03/06 1528 98.1 103 22 110/70 93 Intake & Output 03/07 1600 03/07 0800 03/07 0000 Intake Total 1315 755 Output Total 300 300 800 Balance -300 1015 -45 Intake, Tube 840 480 Feeding Intake, Tube 475 275 Irrigant Output, Urine 300 300 800 Exam Other Physical Findings: Generally - Awake, alert and comfortable without distress Head and neck - normocephalic, atraumatic, EOMI grossly intact Cardiovascular - S1, S2 Lungs - bilateral wheezing Abdomen - Bowel sounds positive, soft, non-tender Extremities - without edema Results Last 24 Hrs of Lab Results: Laboratory Tests 03/07/17 0735: CBC w Diff NO MAN DIFF REQ, RBC 4.05 L, MCV 98.3, MCH 32.7 H, RDW 12.8, MPV 10.1, Gran % 83.7 H, Lymphocytes % 7.6 L, Monocytes % 8.5, Eosinophils % 0.1, Basophils % 0.1, Absolute Granulocytes 7.3 H, Absolute Lymphocytes 0.7 L, Absolute Monocytes 0.7 H, Absolute Eosinophils 0, Absolute Basophils 0, PUBS MCHC 33.2 Impression/Plan Impression/Plan Impression/Plan: Impression 66 year old woman -COPD exacerbation likely secondary to bronchitis -lung nodule Plan -convert to prednisolone today - discussed with housetaff to ask pharmacy prednisone to prednisolone conversion in anticipation of switch -mucomyst nebulized -cxr without new infiltrate DVT prophylaxis at all times
[2017-03-07 14:10] VITALS: BP 118/62
--- NOTE | 2017-03-07 14:36 | Discharge Summary ---
Visit Information Visit Dates Admission Date: 02/28/17 Discharge Date: 03/10/17 Hospital Course Course Attending Physician: Lainey Suarez MD Primary Care Physician: Armando Catalan MD, V. Hospital Course: 66 yo F with h/o O2 dependent COPD (2L at rest, 3L on exertion), lung nodule, throat cancer s/p radiation and chemotherapy (Mar 2013), s/p PEG tube, hypothyroidism, last admitted for COPDE (Dec 2016), follows Dr. Franklin, is here for 2-day h/o worsening dyspnea especially on exertion now even at rest, pleuritic chest pain, cough productive of thick white phlegm and wheezing. ED course: Vitals: Temperature 98.2, pulse 97, respiratory rate 24, blood pressure 137/68, oxygen saturation 95% on 4 L of oxygen. Labs: WBC count 7.5, hemoglobin 13.7, hematocrit 41.1, platelet count 29, sodium 145, potassium 4.0, BUN 22, creatinine 0.6, BUNs/creatinine ratio 36.7, glucose 125, calcium 10.0, troponin less than 0.01 COPD exacerbation due to acute bronchitis: Considering patient's chief complaint of shortness of breath with productive cough that was probably due to COPD exacerbation precipitated by acute bronchitis. Supplemental oxygen was given to keep the patient's oxygen saturation above 90%. Blood and sputum cultures were obtained. Pulmonology consultation was obtained and recommendations were followed. Initially patient was given IV ceftriaxone and azithromycin for 2 days and later on that was changed to by mouth ceftin as recommended by student specialist. Patient was given IV Solu-Medrol initially and that was changed to prednisolone on tapering dose. Patient was also given Mucomyst to help with bringing up phlegm and incentive spirometry to help her expand her lungs. Patient also received TRC nebulization as needed and chest physiotherapy. Initially patient had difficulty in bringing up sputum and she had chest congestion but later on with Mucomyst use she was able to bring up sputum. Sputum culture was obtained that was growing diphtheroid, staph aureus, gram-negative rods and MRSA probably due to chronic colonization as patient remained afebrile. Patient was discharged as recommended by pulmonology and she was instructed to follow her student specialist in a week. During her last last admission her CT scan chest was showing pulmonary nodule, patient was instructed to follow the student specialist for further recommendations for the follow-up of pulmonary nodule. History of hypothyroidism: We continued levothyroxine. History of throat cancer status post PEG tube feeding: Patient had a history of throat cancer and she had PEG tube placement for the feeding. Nutrition consult was obtained and PEG tube feeding was done as they recommended. Patient was getting her medication through her PEG tube. DVT prophylaxis: Mechanical and Lovenox CODE STATUS: Full code Allergies: Coded Allergies: No Known Allergies (07/30/16) Pertinent Lab Results: Chest x-ray on 02/28/2017: IMPRESSION: Unremarkable examination. Chest x-ray on 03/03/2017: IMPRESSION: COPD. No infiltrate. WBC count 11.1, hemoglobin 13.9, hematocrit 42.5, palate count 267, sodium 142 potassium 4.3, BUN 13, creatinine 0.6, BUNs/creatinine ratio 55.0, magnesium 2.0 , troponin less than 0.01 Disposition Summary Disposition Principal Diagnosis: COPD exacerbation due to acute bronchitis. Additional Diagnosis: Hypothyroidism History of throat cancer status post PEG tube feeding. Discharge Disposition: home health services Discharge Instructions General Discharge Information Code Status: Full Code Patient's Diet: PEG tube feeding Patient's Activity: Self-limited Follow-Up Instructions/Appts: Follow-up with your primary care physician in one week. Follow-up with your student specialist in 1 week. And discuss for future plan to follow-up for pulmonary nodule. Medications at Discharge Discharge Medications: Stop taking the following medications: Prednisolone (Prednisolone) 15 MG/5 ML SOLUTION G TUBE As Directed Continue taking these medications: Levothyroxine Sodium (Levothyroxine Sodium) 137 MCG TABLET 137 Microgram G TUBE DAILY Qty = 90 Comments: Last Taken: 03/10/17 Time: 1000 AM Budesonide/Formoterol Fumarate (Symbicort 160-4.5 Mcg Inhaler) 160 MCG-4.5 MCG/ ACTUATION HFA.AER.AD 2 PUFF Inhale through mouth TWICE DAILY Qty = 102 Comments: Last Taken: 03/10/17 Time: 1000 AM Tiotropium [place] (Spiriva Respimat) 2.5 MCG/ACTUATION MIST.INHAL 2 PUFF Inhale through mouth DAILY Qty = 4 Comments: Last Taken: 03/10/17 Time: 1000 AM Albuterol Sulfate (Proair Hfa) 90 MCG HFA.AER.AD 2 PUFF Inhale through mouth as needed for COPD Qty = 85 Comments: NOT TAKEN Alprazolam (Alprazolam) 0.5 MG TABLET 1 Tablet G TUBE THREE TIMES DAILY as needed for ANXIETY Comments: Last Taken: 03/10/17 Time: 0830 AM Albuterol Sulfate (Albuterol Sulfate) 2.5 MG/3 ML (0.083 %) VIAL.NEB 1 Vial Inhale Solution Q6H as needed for RESP. Comments: Last Taken: 03/10/17 Time: 1200 Lactose-Reduced Food/Fiber (Jevity 1.5 [place] Liquid) (Unknown Strength) LIQUID Unknown Dose G TUBE As Directed Start taking the following new medications: Prednisolone (Prednisolone) 15 MG/5 ML SOLUTION 0 ORAL DAILY Qty = 2 No Refills Instructions: On Take 03/10 30 MG 03/11-03/13 50 MG 03/14-03/16 40 MG 03/17-03/19 30 MG 03/20-03/22 20 MG 03/23-03/25 10 MG Then stop. Comments: Last Taken: 03/10/17 Time: 1000 AM Nystatin (Nystatin) 100,000 UNIT/ML ORAL.SUSP 5 [place] ORAL 4 TIMES A DAY Qty = 1 No Refills Comments: Last Taken: 03/10/17 Time: 1315 PM Acetaminophen (Tylenol Extra Strength) 500 MG TABLET 1 Tablet ORAL EVERY SIX HOURS NEEDED as needed for Fever/mild pain Qty = 30 No Refills Copies To: Rigoberto PORTILLO,Matthew; Alayna PORTILLO,Armando Garcia Attending MD Review Statement Documenting Attending: Clint Adair MD Other Findings: The patient was seen on the day of discharge. Agree with the plan of care as outlined.
[2017-03-07] MEDS ORDERED: PREDNISOLO15 MG/5 M4 PO (15:47)
[2017-03-07 22:10] VITALS: BP 120/60
--- NOTE | 2017-03-08 06:36 | PN- Housestaff ---
See Addendum Subjective Follow-up For: COPD exacerbation due to acute bronchitis. Subjective: No overnight events. Patient remained afebrile overnight. Seen and examined this morning. Patient denied any chest pain, palpitation, chills, fever, abdominal pain and dysuria. Patient reported having intermittent cough that bringing up some yellow color phlegm. Last night patient reported having phlegm that streaks of blood but this morning she didn't report any blood streaks. Patient is feeling better. She reported that her chest congestion has decreased and she has less anxiety. Sputum was sent for culture yesterday and results are pending. Patient is on prednisolone with tapering dose. Patient can be discharged over the weekend. We will walk her around and check to saturations at rest and ambulation. Review of Systems Constitutional: Reports: no symptoms. EENTM: Reports: no symptoms. Cardiovascular: Reports: no symptoms. Respiratory: Reports: cough, short of breath, sputum production. Gastrointestinal: Reports: no symptoms. Genitourinary: Reports: no symptoms. Musculoskeletal: Reports: no symptoms. Neurological/Psychological: Reports: no symptoms. Objective Last 24 Hrs of Vital Signs/I&O Vital Signs Date Time Temp Pulse Resp B/P B/P Pulse O2 O2 Flow FiO2 Mean Ox Delivery Rate 03/08 0720 97.9 94 22 124/60 97 Nasal 2.0L Cannula 03/08 0000 94 Nasal 2.5L Cannula 03/07 2210 97.9 98 20 120/60 95 03/07 1616 96 Nasal 2.0L Cannula 03/07 1600 Nasal 2.0L Cannula 03/07 1410 98.2 103 20 118/62 94 03/07 0930 99 Nasal 3.0L Cannula 03/07 0800 18 94 Nasal 2.0L Cannula 03/07 0800 94 Nasal 2.0L Cannula Intake & Output 03/08 0800 03/08 0000 03/07 1600 Intake Total 220 560 100 Output Total 600 1400 Balance -380 560 -1300 Intake, Oral 0 Intake, Tube 120 360 Feeding Intake, Tube 100 200 100 Irrigant Number 1 Bowel Movements Output, Urine 600 1400 Physical Exam General Appearance: Alert, Oriented X3, Cooperative, No Acute Distress Skin Temp/Moisture Exam: Warm/Dry Sepsis Skin Exam (color): Normal for Ethnicity HEENT: Atraumatic, PERRLA, EOMI Neck: Supple Cardiovascular: Normal S1, Normal S2 Lungs: B/L wheezing with crackles. Abdomen: Soft, No Tenderness Neurological: Normal Speech, Strength at 5/5 X4 Ext, Normal Tone, Sensation Intact Extremities: No Edema Assessment/Plan Assessment: 66-year-old female with past medical history significant for throat cancer status post chemotherapy and radiation, last chemotherapy in 2013, status post PEG tube on continuous pump for 12 hours at night, hypothyroidism and oxygen dependent (2.5L at night and 3 during the day) COPD came in with chief complaint of worsening shortness of breath and chills with productive cough for last few days. COPD Exacerbation precipitaed by bronchitis: -Supplemental oxygen to maintain saturation above 90%. -Completed 5 days course of antibiotics. -TRC nebulization as needed -Mucomyst nebulization twice a day as patient having difficulty in bringing sputum and chest congestion. -Chest physiotherapy -incentive spirometry -sputum culture was sent yesterday and results are pending. -prednisolone 60mg (15mg/5ml) with tapering dose. prednisone is equal to predisolone in strength with conversion no difference as i talked to [place] [facility]. History of hypothyroidism: -We will continue levothyroxine PEG tube feeding: -Patient has a history of throat cancer and she is not able to take anything oral. -Patient is getting tube feeds. -Today she was complaining of fullness after the tube feeds so we will get the nutrition consult to her chest her tube feeding doses. DVT prophylaxis: Mechanical and Lovenox CODE STATUS: Full code Problem List: 1. Bronchitis 2. COPD with exacerbation Pain Ratin Pain Location: none Pain Goal: Remain pain free Pain Plan: tylenol for mild pain Tomorrow's Labs & Rationales: bep
[2017-03-08 07:20] VITALS: BP 124/60
[2017-03-08 14:48] VITALS: BP 120/70
[2017-03-08 22:05] VITALS: BP 150/76
[2017-03-09 06:59] VITALS: BP 130/70
--- NOTE | 2017-03-09 08:46 | PN- Housestaff ---
Mikel PORTILLO,Antoinette 03/09/17 0846: Subjective Follow-up For: COPD exacerbation due to acute bronchitis. Subjective: Patient is seen and examined at bedside, no overnight events, afebrile, still complains of productive cough with yellow sputum, and chills. Denies fever, nausea, vomiting, diarrhea or constipation. On prednisone taper, patient is anxious to go home Review of Systems Constitutional: Reports: chills, malaise. Denies: fever. Cardiovascular: Denies: no symptoms. Respiratory: Reports: cough, short of breath, sputum production. Gastrointestinal: Denies: no symptoms. Genitourinary: Denies: no symptoms. Musculoskeletal: Denies: no symptoms. Skin: Denies: no symptoms. Objective Last 24 Hrs of Vital Signs/I&O Vital Signs Date Time Temp Pulse Resp B/P B/P Pulse O2 O2 Flow FiO2 Mean Ox Delivery Rate 03/09 0843 98 Nasal 2.0L Cannula 03/09 0659 97.6 86 22 130/70 97 Nasal 2.0L Cannula 03/09 0000 Nasal 2.5L Cannula 03/08 2205 97.4 94 21 150/76 96 Nasal 2.0L Cannula 03/08 2124 98 Nasal 3.0L Cannula 03/08 1607 98 Nasal 3.0L Cannula 03/08 1600 Nasal 2.0L Cannula 03/08 1448 98.5 91 20 120/70 95 Intake & Output 03/09 1600 03/09 0800 03/09 0000 Intake Total 1460 930 Output Total 900 Balance -900 1460 930 Intake, IV 10 Intake, Oral 140 Intake, Tube 960 680 Feeding Intake, Tube 500 100 Irrigant Output, Urine 900 Physical Exam General Appearance: Alert, Oriented X3, Cooperative, No Acute Distress HEENT: Atraumatic, PERRLA, EOMI, Mucous Membr. moist/pink Neck: Supple, No JVD Cardiovascular: Normal S1, Normal S2, No Murmurs Lungs: BILATERAL WHEEZES AND RALES Abdomen: Normal Bowel Sounds, Soft, No Tenderness Neurological: Normal Speech, Strength at 5/5 X4 Ext Extremities: No Clubbing, No Cyanosis, No Edema Assessment/Plan Assessment: 66-year-old female with past medical history significant for throat cancer status post chemotherapy and radiation, last chemotherapy in 2013, status post PEG tube on continuous pump for 12 hours at night, hypothyroidism and oxygen dependent (2.5L at night and 3 during the day) COPD came in with chief complaint of worsening shortness of breath and chills with productive cough for last few days. COPD Exacerbation precipitaed by bronchitis: -Supplemental oxygen to maintain saturation above 90%. -Completed 5 days course of antibiotics. -TRC nebulization as needed -Mucomyst nebulization twice a day as patient having difficulty in bringing sputum and chest congestion. -Chest physiotherapy -incentive spirometry -sputum culture show Diphteroids -prednisolone 60mg (15mg/5ml) with tapering dose. prednisone is equal to predisolone in strength with conversion no difference as i talked to [place] [facility]. History of hypothyroidism: -We will continue levothyroxine PEG tube feeding: -Patient has a history of throat cancer and she is not able to take anything oral. -Patient is getting tube feeds. -Today she was complaining of fullness after the tube feeds so we will get the nutrition consult to her chest her tube feeding doses. DVT prophylaxis: Mechanical and Lovenox CODE STATUS: Full code Problem List: 1. Bronchitis 2. COPD with exacerbation Pain Ratin Pain Location: N/A Pain Goal: Remain pain free Pain Plan: Pathway Tomorrow's Labs & Rationales: none DVT/Prophylaxis: mechanical, pharmacological Kyle Ortiz MD 03/09/17 1628: Attending MD Review Statement Attending Statement Attending MD Statement: examined this patient, discuss w/resident/PA/PEDIATRIC REGISTERED NURSE, agreed w/resident/PA/PEDIATRIC REGISTERED NURSE, reviewed EMR data (avail), discussed with nursing Attending Assessment/Plan: The patient was seen and discussed with house staff and nursing. Pulmonary input appreciated. Patient getting a breathing treatment this morning when seen at bedside. Still has some cough with sputum production on examination bilateral scattered wheezes present. No fever chills. Being transitioned to oral steroid. Repeat sputum cultures sent, final cultures most likely consistent with contaminants (was rejected initially due to squamous cells, however patient has h/o H&N ca and XRT and expect squamous cells to be in sputum). No clinical pneumonia. Continue care per pulmonary and if continues to do well will consider discharge to home on her usual oxygen in AM. Possibility of MRSA in sputum cultures.
[2017-03-09 13:54] VITALS: BP 136/70
[2017-03-09 22:23] VITALS: BP 110/60
[2017-03-10 07:09] VITALS: BP 120/66
--- NOTE | 2017-03-10 07:25 | PN- Housestaff ---
See Addendum Subjective Follow-up For: COPD exacerbation due to acute bronchitis.(resolved) Subjective: No overnight events. Patient remained afebrile overnight. Seen and examined this morning. Patient complaining of intermittent cough with yellow, sputum. She is using 2 L of oxygen and maintaining saturation 95%. Patient is close to her baseline. Her sputum culture came back yesterday that was growing diphtheroid, staph areus and gram-negative yolanda. After the pulmonology recommendations patient can be discharged today. Yesterday patient walk around and her ambulatory sats were 95% on 3 L of oxygen. Review of Systems Constitutional: Reports: no symptoms. EENTM: Reports: no symptoms. Cardiovascular: Reports: no symptoms. Respiratory: Reports: cough, sputum production. Gastrointestinal: Reports: no symptoms. Genitourinary: Reports: no symptoms. Musculoskeletal: Reports: no symptoms. Neurological/Psychological: Reports: no symptoms. Objective Last 24 Hrs of Vital Signs/I&O Vital Signs Date Time Temp Pulse Resp B/P B/P Pulse O2 O2 Flow FiO2 Mean Ox Delivery Rate 03/10 0709 97.8 93 20 120/66 95 Nasal 3.0L Cannula 03/10 0000 95 Nasal 2.0L Cannula 03/09 2223 97.5 92 20 110/60 95 03/09 1703 98 Nasal 2.0L Cannula 03/09 1600 Nasal 2.0L Cannula 03/09 1354 98.2 75 16 136/70 97 Nasal Cannula 03/09 0843 98 Nasal 2.0L Cannula Intake & Output 03/10 1600 03/10 0800 03/10 0000 Intake Total 1140 890 Output Total 250 800 Balance 890 90 Intake, IV 10 Intake, Oral 0 Intake, Tube 840 480 Feeding Intake, Tube 300 400 Irrigant Number 1 Bowel Movements Output, Urine 250 800 Physical Exam General Appearance: Alert, Oriented X3, Cooperative, No Acute Distress Skin Temp/Moisture Exam: Warm/Dry HEENT: Atraumatic, PERRLA, EOMI Neck: Supple Lungs: b/l wheezing Abdomen: Soft, No Tenderness, PEG tube for feeding Neurological: Normal Speech, Strength at 5/5 X4 Ext, Normal Tone, Sensation Intact Extremities: No Edema Assessment/Plan Assessment: 66-year-old female with past medical history significant for throat cancer status post chemotherapy and radiation, last chemotherapy in 2013, status post PEG tube on continuous pump for 12 hours at night, hypothyroidism and oxygen dependent (2.5L at night and 3 during the day) COPD came in with chief complaint of worsening shortness of breath and chills with productive cough for last few days. COPD Exacerbation precipitaed by bronchitis: -Supplemental oxygen to maintain saturation above 90%. -Completed 5 days course of antibiotics. -TRC nebulization as needed -Mucomyst nebulization twice a day as patient having difficulty in bringing sputum and chest congestion. -Chest physiotherapy -incentive spirometry -sputum culture show Diphteroids,staph areus and gram negative rods. -prednisolone 60mg (15mg/5ml) with tapering dose. prednisone is equal to predisolone in strength with conversion no difference as i talked to [place] [facility]. History of hypothyroidism: -We will continue levothyroxine PEG tube feeding: -Patient has a history of throat cancer and she is not able to take anything oral. -Patient is getting tube feeds. -Today she was complaining of fullness after the tube feeds so we will get the nutrition consult to her chest her tube feeding doses. DVT prophylaxis: Mechanical and Lovenox CODE STATUS: Full code Problem List: 1. COPD with exacerbation 2. Bronchitis Pain Ratin Pain Location: none Pain Goal: Remain pain free Pain Plan: tylenol for mild pain Tomorrow's Labs & Rationales: none
[2017-03-10] MEDS ORDERED: PREDNISOLO15 MG/5 M4 PO ×6 (08:51→14:30)
[2017-03-10 10:23] LABS: ABSOLUTE BASOPHIL COUNT 0 /CUMM (0.0-0.2); ABSOLUTE EOSINOPHIL COUNT 0 /CUMM (0.0-0.7); ABSOLUTE GRANULOCYTE CT 9.4 /CUMM (1.4-6.5); ABSOLUTE LYMPH COUNT 0.8 /CUMM (1.2-3.4); ABSOLUTE MONOCYTE COUNT 0.9 /CUMM (0.10-0.60); BASOPHIL % 0 % (0.0-2.0); EOSINOPHIL % 0.1 % (0-5); GRANULOCYTE % 84.6 % (42.2-75.2); HEMATOCRIT 42.5 % (37-47); MEAN CORPUSCULAR HGB CONC 32.7 G/DL (33.0-37.0); MEAN CORPUSCULAR VOLUME 97.9 FL (81.0-99.0); MEAN PLATELET VOLUME 10.1 FL (7.4-10.4); PLATELET COUNT 267 /CUMM (130-400); RBC DISTRIBUTION WIDTH 12.9 % (11.5-14.5); RED BLOOD CELL CT 4.34 /CUMM (4.20-5.40)
--- NOTE | 2017-03-10 10:30 | PN- Pulmonary ---
Subjective HPI/Critical Care Issues: Patient seen and examined this morning. Her sputum culture can represent colonization we will await a white blood cell count level. Overall she feels better with significantly diminished rhonchi. Objective Current Medications: Current Medications Sig/Kody Start time Last Medication Dose Route Stop Time Status Admin Acetaminophen 650 MG Q6P PRN 02/28 2230 AC 03/01 PO 0147 Acetaminophen 1,000 MG Q6P PRN 02/28 2230 AC 03/01 IV 1452 Acetylcysteine 4 ML BID 03/04 1133 AC 03/10 INH 0857 Albuterol Sulfate 3 ML EVERY 4 HRS/AWAKE 03/01 1200 AC 03/10 INH 0857 Albuterol Sulfate 3 ML Q4H PRN 03/01 0130 AC 03/01 INH 0125 Alprazolam 0.5 MG TID PRN 03/07 2315 AC 03/10 PO 03/14 2314 0831 Budesonide/ 2 PUF BID 03/01 1000 AC 03/10 Formoterol Fumarate INH 1007 Chlorhexidine 15 ML TID 03/01 1742 AC 03/10 Gluconate PO 1007 Enoxaparin Sodium 40 MG DAILY 03/01 1000 AC 03/10 SC 1006 Guaifenesin 10 ML .STK-MED ONE 03/09 2039 DC PO 03/09 2040 Guaifenesin 10 ML .STK-MED ONE 03/09 1432 DC PO 03/09 1433 Guaifenesin 10 ML Q4-6 PRN PRN 03/03 0045 AC 03/10 PO 0623 Guaifenesin/ 10 ML .STK-MED ONE 03/09 1426 DC Dextromethorphan PO 03/09 1427 Levothyroxine Sodium 0.137 MG DAILY 03/01 1000 AC 03/10 PO 1006 Nystatin 1 BINTA BID 03/07 1408 AC 03/10 TOP 1008 Nystatin 5 ML 4 TIMES/DAY 03/04 1452 AC 03/10 PO 1006 Prednisolone 30 MG BID 03/08 1000 AC 03/10 PO 1007 Tiotropium [place] 1 PUF DAILY 03/01 1000 AC 03/10 INH 1007 Tramadol HCl 50 MG Q8P PRN 03/01 1800 AC 03/09 PO 2044 Vital Signs & I&O Last 24 Hrs of Vitals and I&O: Vital Signs Date Time Temp Pulse Resp B/P B/P Pulse O2 O2 Flow FiO2 Mean Ox Delivery Rate 03/10 0902 99 Nasal 2.0L Cannula 03/10 0709 97.8 93 20 120/66 95 Nasal 3.0L Cannula 03/10 0000 95 Nasal 2.0L Cannula 03/09 2223 97.5 92 20 110/60 95 03/09 1703 98 Nasal 2.0L Cannula 03/09 1600 Nasal 2.0L Cannula 03/09 1354 98.2 75 16 136/70 97 Nasal Cannula Intake & Output 03/10 1600 03/10 0800 03/10 0000 Intake Total 1140 890 Output Total 250 800 Balance 890 90 Intake, IV 10 Intake, Oral 0 Intake, Tube 840 480 Feeding Intake, Tube 300 400 Irrigant Number 1 Bowel Movements Output, Urine 250 800 Exam Other Physical Findings: Generally - Awake, alert and comfortable without distress Head and neck - normocephalic, atraumatic, EOMI grossly intact Cardiovascular - S1, S2 Lungs - bilateral wheezing significantly improved Abdomen - Bowel sounds positive, soft, non-tender Extremities - without edema Results Last 24 Hrs of Lab Results: Laboratory Tests 03/10/17 0840: Sodium Pending, Potassium Pending, Chloride Pending, Carbon Dioxide Pending, Anion Gap Pending, BUN Pending, Creatinine Pending, BUN/Creatinine Ratio Pending 03/10/17 0815: CBC w Diff Pending, WBC Pending, RBC Pending, Hgb Pending, Hct Pending, MCV Pending, MCH Pending, RDW Pending, Plt Count Pending, MPV Pending, Gran % Pending, Lymphocytes % Pending, Monocytes % Pending, Eosinophils % Pending, Basophils % Pending, Absolute Granulocytes Pending, Absolute Lymphocytes Pending , Absolute Monocytes Pending, Absolute Eosinophils Pending, Absolute Basophils Pending, PUBS MCHC Pending Impression/Plan Impression/Plan Impression/Plan: Impression 66 year old woman -COPD exacerbation likely secondary to bronchitis -lung nodule Plan -prednisolone taper as ordered -await wbc today, sputum cx likely represents colonization -cxr without new infiltrate -DC planning DVT prophylaxis at all times
[2017-03-10 11:31] LABS: WHITE BLOOD CELL COUNT 11.1 /CUMM (4.8-10.8)
[2017-03-10] MEDS ORDERED: NYSTATIN100000 UNI PO (13:05)
[2017-03-10] MEDS ORDERED: TYLENOL EXTRA500 M2 PO (13:09)
[2017-03-10 14:23] VITALS: BP 110/79
== END 2017-03-10 15:39 | disposition home health service (06) | DRG 191 ==
LOC: ERH 19:18 → 2NA 21:56 → ERHI 21:56 → 2NA 21:56 → ENRESERV 23:05 → ENTRNSPT 23:49 → 2NA 03-01 00:15 → CMPTRNSPT 03-01 07:44 → 2NA 03-03 07:57 → ENPENDDIS 03-10 13:41 → ENTRNSPT 03-10 15:35 → EDTRNSPTSTS 03-10 15:37 → 2NA 03-10 15:39 → CMPTRNSPT 03-10 15:58
PROVIDERS: Pediatrics; Student in an Organized Health Care Education/Training Program
DX: J44.1 Chronic obstructive pulmonary disease with (acute) exacerbation (principal); J96.11 Chronic respiratory failure with hypoxia; Z99.81 Dependence on supplemental oxygen; Z93.1 Gastrostomy status; J44.0 Chronic obstructive pulmonary disease with (acute) lower respiratory infection; R91.1 Solitary pulmonary nodule; J20.9 Acute bronchitis, unspecified; F41.9 Anxiety disorder, unspecified; E03.9 Hypothyroidism, unspecified; Z87.891 Personal history of nicotine dependence
CPT/HCPCS: 2NAP; 87184; ERO; 36415; 71045; 71046; 82436; 87040; 87070; 87071; 87147; 87449; 87450; 87804; 87804-59; 93005; 93010; 96374; 96375; J0131; J0456; J0696; J1650; J2920; J2930; J3490; J7040; J7608